=== PATIENT | male | born 1950 | race Caucasian/White ===

== ENCOUNTER 2017-12-12 17:48 | Emergency (ER) | payer MEDICARE ==
[2017-12-12 18:17] VITALS: BP 149/82; PULSE 78; O2SAT 97
--- NOTE | 2017-12-12 18:44 | ERPHSYRPT ---
- History of Present Illness Time Seen by Provider: 12/12/17 18:44 Source: patient Exam Limitations: no limitations Patient Subjective Stated Complaint: right hand injury, tripped over child's toy and struck hand on door casing Triage Nursing Assessment: pt to er c/o right hand pain post fall, triped over toddler toy and struck door casing, pt states he has "low calcium" and has fractures easily, bruise noted to top of left hand, no swelling, wiggles fingers but 4th and 5th finger has pain with movement Physician History: The patient is a 66-year-old left-handed male who tripped and fell against a door frame, striking his left hand on the frame, causing pain, swelling, and bruising to the knuckles. He is able to move all fingers as well as his hand. He has no numbness or tingling. His past medical history is significant for hypertension. Occurred: just prior to arrival Reason for Fall: tripped Injuries/Pain Location: upper extremity Loss of Consciousness: no loss of consciousness Quality: sharpness Severity of Pain-Max: moderate Severity of Pain-Current: moderate Modifying Factors: Improves With: nothing Associated Symptoms (Fall): denies symptoms Allergies/Adverse Reactions: penicillin G Allergy (Mild, Verified 10/25/16 15:58) Hives Home Medications: Aspirin/Calcium Carbonate/Mag [Aspirin Buffered 325 mg Tab] 325 mg PO DAILY [History] Hydrochlorothiazide 25 mg [hydroDIURIL 25 MG] 25 mg PO DAILY 01/13/15 [ History] Trazodone HCl 100 mg PO HS 01/13/15 [History] Hx Tetanus, Diphtheria Vaccination/Date Given: No Hx Influenza Vaccination/Date Given: Yes Hx Pneumococcal Vaccination/Date Given: Yes - Review of Systems Constitutional: No Fever, No Chills Eyes: No Symptoms Ears, Nose, & Throat: No Symptoms Respiratory: No Cough, No Dyspnea Cardiac: No Chest Pain, No Edema, No Syncope Abdominal/Gastrointestinal: No Abdominal Pain, No Nausea, No Vomiting, No Diarrhea Genitourinary Symptoms: No Dysuria Musculoskeletal: Fall, Injury Skin: No Rash Neurological: No Dizziness, No Focal Weakness, No Sensory Changes Psychological: No Symptoms Endocrine: No Symptoms Hematologic/Lymphatic: No Symptoms Immunological/Allergic: No Symptoms All Other Systems: Reviewed and Negative - Past Medical History Pertinent Past Medical History: Yes Neurological History: Stroke ENT History: Cataracts Cardiac History: Angina, Myocardial Infarction ([place]) Respiratory History: No Pertinent History Endocrine Medical History: No Pertinent History Musculoskeletal History: No Pertinent History GI Medical History: No Pertinent History History: No Pertinent History Psycho-Social History: Depression Male Reproductive Disorders: No Pertinent History - Past Surgical History Past Surgical History: Yes Neuro Surgical History: No Pertinent History Cardiac: No Pertinent History Respiratory: No Pertinent History Gastrointestinal: Other Genitourinary: No Pertinent History Musculoskeletal: Orthopedic Surgery Male Surgical History: Other Other Surgical History: "fluid" removed from testicles, spinal surgey, hip replacement x2, appy - Social History Smoking Status: Never smoker Exposure to second hand smoke: No Drug Use: none Patient Lives Alone: No - Nursing Vital Signs Nursing Vital Signs: Initial Vital Signs Temperature 97.7 F 12/12/17 18:09 Pulse Rate 78 12/12/17 18:09 Respiratory Rate 20 12/12/17 18:09 Blood Pressure 149/82 12/12/17 18:09 O2 Sat by Pulse Oximetry 97 12/12/17 18:09 Pain Scale Pain Intensity 8 - [place] Coma Score Best Eye Response (Deshawn): (4) open spontaneously Best Verbal Response (Deshawn): (5) oriented Best Motor Response (Deshawn): (6) obeys commands Deshawn Total: 15 - Physical Exam General Appearance: no apparent distress, alert Head Injury: no evidence of injury Eye Exam: PERRL/EOMI ENT Exam: airway nml Neck Exam: normal inspection, No tenderness Respiratory/Chest Exam: normal breath sounds, No chest tenderness, No respiratory distress Cardiovascular Exam: normal heart sounds, regular rate/rhythm Gastrointestinal Exam: soft, No tenderness, No distention, No guarding, No ecchymosis Rectal Exam: not done Back Exam: normal inspection, No vertebral tenderness Extremity Exam: tenderness (tenderness to left 4th MCP joint) Neurologic Exam: alert, 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, cooperative, sensation nml, No motor deficits Skin Exam: normal color, warm, dry SpO2 Interpretation: normal SpO2: 97 Oxygen Delivery: Room Air - Radiology Exams Left Hand X-ray Interpretation: Interpreted by me, Negative Ordered Tests: Active Orders 24 hr Category Date Time Status HAND (MINIMUM 3 VIEWS) Stat Exams 12/12/17 18:45 Ordered - Progress Counseled pt/family regarding: lab results - Departure Time of Disposition: 19:11 Departure Disposition: Home Clinical Impression: Contusion of left hand Condition: Stable Critical Care Time: No Referrals: WILLI DUMAS MD [Primary Care Provider] -
--- NOTE | 2017-12-13 08:48 | XRAY ---
Indication: Third metacarpal pain following fall. Comparison: July 22, 2013. 3 views of the right hand demonstrate stable osteopenia and minimal/mild degenerative changes of all IP joints again greatest second DIP. Stable distal radial/ulnar deformities presumed old injury and carpal degenerative changes with tiny lateral heterotopic ossification. No new/acute findings.
== END 2017-12-12 19:21 ==
LOC: ED 17:48
DX: S60.222A Contusion of left hand, initial encounter (principal); W22.8XXA Striking against or struck by other objects, initial encounter
CPT/HCPCS: 73130; 99282

== ENCOUNTER 2020-02-01 18:35 | Emergency (ER) | payer MEDICARE ==
--- NOTE | 2020-02-01 18:50 | ERPHSYRPT ---
- History of Present Illness Time Seen by Provider: 02/01/20 18:49 Source: patient Exam Limitations: no limitations Physician History: This is a 69-year-old white male who presents with 1 day history of right earache that has been persistent. He has radiation of this pain down into his throat on the right side. It hurts to swallow. He has not had any fever no cough he has no chest pain. Patient is not diabetic. He has no nausea vomiting or diarrhea. Timing/Duration: yesterday Quality: aching, pressure Severity of Pain-Max: mild Severity of Pain-Current: mild Associated Symptoms: other (Sore throat on the right side), No fever/chills, No nausea/vomiting Previous symptoms: no prior history Allergies/Adverse Reactions: penicillin G Allergy (Mild, Verified 10/25/16 15:58) Hives Home Medications: Aspirin 81 gm Chew [Baby Aspirin 81 mg Chew] 81 mg PO DAILY 02/01/20 [ History] Citalopram Hydrobromide [Celexa] 40 mg PO DAILY 02/01/20 [History] Docusate Sodium [Dok] 100 mg PO DAILY 02/01/20 [History] Finasteride 5 mg [Proscar 5 MG] 5 mg PO DAILY 02/01/20 [History] Hydrochlorothiazide 25 mg [hydroDIURIL 25 MG] 25 mg PO DAILY 02/01/20 [ History] Linaclotide [Linzess] 145 mcg PO DAILY 02/01/20 [History] Losartan Potassium 25 mg PO DAILY 02/01/20 [History] Omeprazole 40 mg PO DAILY 02/01/20 [History] Pramipexole Di-HCl 0.5 mg [Mirapex 0.5 MG Tablet] 0.5 mg PO BID 02/01/20 [ History] Pravastatin Sodium 40 mg PO DAILY 02/01/20 [History] Tamsulosin HCl 0.4 mg [Flomax 0.4 MG] 0.8 mg PO DAILY 02/01/20 [History] Venlafaxine HCl [Venlafaxine HCl ER] 150 mg PO DAILY 02/01/20 [History] Hx Tetanus, Diphtheria Vaccination/Date Given: No Hx Influenza Vaccination/Date Given: Yes Hx Pneumococcal Vaccination/Date Given: Yes Travel Risk - International Travel Have you traveled outside of the country in past 3 weeks: No Have you or anyone close to you been diagnosed with or: No Do your reside in a community with a known COVID-19 case?: Yes If Yes where:: [facility] - Coronavirus Screening Has patient experienced Coronavirus symptoms: No - Review of Systems Constitutional: No Symptoms Eyes: No Symptoms Ears, Nose, & Throat: Ear Pain (Right), Throat Pain Respiratory: No Symptoms Cardiac: No Symptoms Abdominal/Gastrointestinal: No Symptoms Genitourinary Symptoms: No Symptoms Musculoskeletal: No Symptoms Skin: No Symptoms Neurological: No Symptoms Psychological: No Symptoms Endocrine: No Symptoms Hematologic/Lymphatic: No Symptoms Immunological/Allergic: No Symptoms All Other Systems: Reviewed and Negative - Past Medical History Pertinent Past Medical History: Yes Neurological History: No Pertinent History, TIA ENT History: Cataracts Cardiac History: High Cholesterol, Hypertension, Myocardial Infarction ([place]) Respiratory History: No Pertinent History Endocrine Medical History: Other Musculoskeletal History: Arthritis, Fractures GI Medical History: No Pertinent History History: No Pertinent History Psycho-Social History: Depression Male Reproductive Disorders: No Pertinent History Other Medical History: history of DM-II - Past Surgical History Past Surgical History: Yes Neuro Surgical History: No Pertinent History Cardiac: No Pertinent History Respiratory: No Pertinent History Gastrointestinal: Other Genitourinary: No Pertinent History Musculoskeletal: Orthopedic Surgery Male Surgical History: Other Other Surgical History: "fluid" removed from testicles, spinal surgey, hip replacement x2, appy - Social History Smoking Status: Never smoker Exposure to second hand smoke: No Drug Use: none Patient Lives Alone: No - Nursing Vital Signs Nursing Vital Signs: Initial Vital Signs Temperature 97.8 F 02/01/20 18:44 Pulse Rate 107 H 02/01/20 18:44 Blood Pressure 172/85 02/01/20 18:44 O2 Sat by Pulse Oximetry 98 02/01/20 18:44 Pain Scale Pain Intensity 8 - Physical Exam General Appearance: no apparent distress, alert, anxiety Eye Exam: PERRL/EOMI Ears, Nose, Throat Exam: moist mucous membranes, TM abnormal (R) (Slightly reddened and canal on right side is also slightly red) Neck Exam: normal inspection, non-tender Respiratory Exam: normal breath sounds, lungs clear, airway intact, No chest tenderness, No respiratory distress Cardiovascular Exam: regular rate/rhythm, normal heart sounds, normal peripheral pulses Gastrointestinal/Abdominal Exam: soft, No tenderness Back Exam: normal inspection, normal range of motion, No CVA tenderness, No vertebral tenderness Extremity Exam: normal inspection, normal range of motion, pelvis stable Mental Status Exam: alert, 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, cooperative production assembler Exam: normal hearing, normal speech, PERRL Coordination/Gait Exam: normal gait, normal cerebellar function Motor/Sensory Exam: no motor deficit, no sensory deficit Skin Exam: normal color, warm, dry Lymphatic Exam: No adenopathy SpO2 Interpretation: normal O2 Delivery: Room Air - Course Nursing assessment & vital signs reviewed: Yes - Progress Progress: unchanged Air Movement: good Blood Culture(s) Obtained: No Antibiotics given: Yes Counseled pt/family regarding: diagnosis, need for follow-up - Departure Departure Disposition: Home Clinical Impression: Right otitis media Condition: Stable Critical Care Time: No Referrals: WILLI DUMAS MD [Primary Care Provider] - Additional Instructions: Drink plenty of fluids. Use Tylenol and ibuprofen for pain and fever. Follow- up with primary doctor for persistent symptoms. Prescriptions: Azithromycin 250 mg [Zithromax 250 MG TABLET] 250 mg PO ZPACK #6 tablet Prednisone 10 mg [Deltasone 10 mg] 10 mg PO TID #12 tablet
[2020-02-01 18:54] VITALS: BP 172/85; PULSE 107; O2SAT 98
[2020-02-01] MEDS ORDERED: Cipro 500 MG PO ONE (18:56)
[2020-02-01] MEDS ORDERED: Cipro 500 MG ONE (19:01)
[2020-02-01] MEDS ORDERED: DELTASONE 20 MG ONE (19:01)
[2020-02-02] MEDS ORDERED: DELTASONE 20 MG PO SCH (10:00)
== END 2020-02-01 19:31 | disposition home or self-care (01) ==
LOC: ED 18:35
DX: H66.91 Otitis media, unspecified, right ear (principal)
CPT/HCPCS: 99283; A9270-GY

== ENCOUNTER 2020-04-12 15:29 | Emergency (ER) | payer MEDICARE ==
[2020-04-12 16:51] LABS: Absolute Neutrophil Ct (ANC) 6.45 (1.4-6.9); BASOPHIL % 0.6 % (0.0-0.4); Basophil (Absolute #) 0.05 (0-0.4); Eosinophil % 0.9 % (0.00-5.0); Eosinophil (Absolute #) 0.08 (0-0.5); Hematocrit 37.7 % (42-50); Hemoglobin 12.6 gm/dl (12.5-18.0); Lymphocyte (Absolute #) 1.86 (1.0-4.6); Lymphocytes % 20.7 % (24.0-44.0); Mean Cell Volume 87.9 fl (78-100); Mean Corpuscular Hemoglobin 29.4 pg (26-32); Mean Corpuscular Hgb Concent. 33.4 g/dl (32-36); Mean Platelet Volume 9.4 fl (7.5-11.0); Monocyte (Absolute #) 0.55 (0.0-1.3); Monocytes % 6.1 % (0.0-12.0); Neutrophil % 71.7 % (36.0-66.0); Platelet Count 249 K/mm3 (150-450); Red Blood Count 4.29 M/mm3 (4.1-5.6); Red Cell Distribution Width 13.2 % (11.5-14.0)
--- NOTE | 2020-04-12 16:59 | XRAY ---
Indication: Hypertension. Comparison: January 24, 2016. Portable chest remains clear. Heart is not enlarged. Bony thorax intact again with osteopenia, mild degenerative changes, old right 6 rib fracture, and T11/T12 kyphoplasty. No new/acute findings.
[2020-04-12 17:08] LABS: ALBUMIN 3.9 g/dL (3.5-5.0); ALKALINE PHOSPHATASE 106 U/L (38-126); ANION GAP 10.8 MEQ/L (5-15); BLOOD UREA NITROGEN 14 mg/dL (9-20); CHLORIDE 102 mmol/L (98-107); Calcium 9.1 mg/dL (8.4-10.2); Carbon Dioxide 25 mmol/L (22-30); Creatinine 1 0.62 mg/dL (0.66-1.25); Glucose 126 mg/dL (74-106); MAGNESIUM 2.2 mg/dL (1.6-2.3); Potassium 3.5 mmol/L (3.5-5.1); SGOT/AST 33 U/L (17-59); SGPT/ALT 33 U/L (0-50); SODIUM 135 mmol/L (137-145)
--- NOTE | 2020-04-12 18:20 | ERPHSYRPT ---
- History of Present Illness Time Seen by Provider: 04/12/20 16:45 Patient Subjective Stated Complaint: pt to ER with complaints of HTN. pt currently takes medication to control HTN but doesnt think it works. stated it has been higher the past 3 weeks. Triage Nursing Assessment: pt A&Ox4. pt ambulatory. pt appears to be in no distress. skin pwd. Physician History: 69-year-old white male with longstanding hypertension who was recently had some changes in his medications and has noted at home by his blood pressure machine that his blood pressure is been running 212/119 intermittently over the past month. Rival here his blood pressure was 144/78 and he was pain-free and comfortable. Timing/Duration: week(s) (4) Activities at Onset: none Severity of Pain-Max: none Severity of Pain-Current: none Modifying Factors: Improves With: nothing Nitro Today/Relief: no nitro taken today Aspirin Treatment Today: no aspirin today Associated Symptoms: denies symptoms Prior Chest Pain/Cardiac Workup: no prior chest pain Allergies/Adverse Reactions: penicillin G Allergy (Mild, Verified 04/12/20 16:18) Hives meperidine [From Demerol] Adverse Reaction (Mild, Verified 04/12/20 16:19) Nausea and Vomiting Home Medications: Aspirin 81 gm Chew [Baby Aspirin 81 mg Chew] 81 mg PO DAILY 02/01/20 [ History] Citalopram Hydrobromide [Celexa] 40 mg PO DAILY 02/01/20 [History] Docusate Sodium [Dok] 100 mg PO DAILY 02/01/20 [History] Finasteride 5 mg [Proscar 5 MG] 5 mg PO DAILY 02/01/20 [History] Hydrochlorothiazide 25 mg [hydroDIURIL 25 MG] 25 mg PO DAILY 02/01/20 [ History] Linaclotide [Linzess] 145 mcg PO DAILY 02/01/20 [History] Losartan Potassium 25 mg PO DAILY 02/01/20 [History] Omeprazole 40 mg PO DAILY 02/01/20 [History] Pramipexole Di-HCl 0.5 mg [Mirapex 0.5 MG Tablet] 0.5 mg PO BID 02/01/20 [ History] Pravastatin Sodium 40 mg PO DAILY 02/01/20 [History] Tamsulosin HCl 0.4 mg [Flomax 0.4 MG] 0.8 mg PO DAILY 02/01/20 [History] Venlafaxine HCl [Venlafaxine HCl ER] 150 mg PO DAILY 02/01/20 [History] Hx Tetanus, Diphtheria Vaccination/Date Given: Yes Hx Influenza Vaccination/Date Given: Yes Hx Pneumococcal Vaccination/Date Given: No Immunizations Up to Date: Yes Travel Risk - International Travel Have you traveled outside of the country in past 3 weeks: No - Coronavirus Screening Close contact with a COVID-19 positive Pt in past 14-21 Days: No - Review of Systems Constitutional: No Fever, No Chills Eyes: No Symptoms Ears, Nose, & Throat: No Symptoms Respiratory: No Cough, No Dyspnea Cardiac: No Chest Pain, No Edema, No Syncope Abdominal/Gastrointestinal: No Abdominal Pain, No Nausea, No Vomiting, No Diarrhea Genitourinary Symptoms: No Dysuria Musculoskeletal: No Back Pain, No Neck Pain Skin: No Rash Neurological: No Dizziness, No Focal Weakness, No Sensory Changes Psychological: No Symptoms Endocrine: No Symptoms All Other Systems: Reviewed and Negative - Past Medical History Pertinent Past Medical History: Yes Neurological History: No Pertinent History, TIA ENT History: Cataracts Cardiac History: High Cholesterol, Hypertension, Myocardial Infarction ([place]) Respiratory History: No Pertinent History Endocrine Medical History: Other Musculoskeletal History: Arthritis, Fractures GI Medical History: No Pertinent History History: No Pertinent History Psycho-Social History: Depression Male Reproductive Disorders: No Pertinent History Other Medical History: history of DM-II - Past Surgical History Past Surgical History: Yes Neuro Surgical History: No Pertinent History Cardiac: No Pertinent History Respiratory: No Pertinent History Gastrointestinal: Other Genitourinary: No Pertinent History Musculoskeletal: Orthopedic Surgery Male Surgical History: Other Other Surgical History: "fluid" removed from testicles, spinal surgey, hip replacement x2, appy - Social History Smoking Status: Never smoker Exposure to second hand smoke: No Drug Use: none Patient Lives Alone: No - Nursing Vital Signs Nursing Vital Signs: Initial Vital Signs Temperature 98.0 F 04/12/20 16:13 Pulse Rate 94 H 04/12/20 16:13 Respiratory Rate 18 04/12/20 16:13 Blood Pressure 144/78 04/12/20 16:13 O2 Sat by Pulse Oximetry 99 04/12/20 16:13 - Physical Exam General Appearance: no apparent distress, alert Eye Exam: PERRL/EOMI, eyes nml inspection Ears, Nose, Throat Exam: normal ENT inspection, moist mucous membranes Neck Exam: normal inspection, non-tender, supple Respiratory Exam: normal breath sounds, lungs clear, No respiratory distress Cardiovascular Exam: regular rate/rhythm, normal heart sounds, No edema Gastrointestinal/Abdomen Exam: soft, No tenderness, No mass Back Exam: normal inspection, No CVA tenderness, No vertebral tenderness Extremity Exam: normal inspection, normal range of motion Neurologic Exam: alert, 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, cooperative, normal mood/affect, nml cerebellar function, sensation nml, No motor deficits Skin Exam: normal color, warm, dry Lymphatic Exam: No adenopathy SpO2: 95 - Course Nursing assessment & vital signs reviewed: Yes EKG Interpreted by Me: RATE ([id number]), NORMAL AXIS, NORMAL INTERVALS, NORMAL QRS - Radiology Exams Chest X-ray Interpretation: Negative Ordered Tests: Active Orders 24 hr Category Date Time Status EKG-ER Only STAT Care 04/12/20 16:28 Active CHEST 1 VIEW (PORTABLE) Stat Exams 04/12/20 16:29 Completed CBC W DIFF Stat Lab 04/12/20 16:50 Completed CMP Stat Lab 04/12/20 16:50 Completed MAGNESIUM Stat Lab 04/12/20 16:50 Completed TROPONIN Q3H Lab 04/12/20 16:50 Completed TROPONIN Q3H Lab 04/12/20 19:30 Ordered TROPONIN Q3H Lab 04/12/20 22:30 Ordered TROPONIN Q3H Lab 04/13/20 01:30 Ordered TROPONIN Q3H Lab 04/13/20 04:30 Ordered UA W/RFX UR CULTURE Stat Lab 04/12/20 17:17 Ordered Lab/Rad Data: Laboratory Result Diagrams 04/12/20 16:50 04/12/20 16:50 Laboratory Results 04/12/20 04/12/20 04/12/20 Range/Units 16:50 16:50 16:50 WBC 9.0 (4.0-10.5) K/mm3 RBC 4.29 (4.1-5.6) M/mm3 Hgb 12.6 (12.5-18.0) gm/dl Hct 37.7 L (42-50) % MCV 87.9 (78-100) fl MCH 29.4 (26-32) pg MCHC 33.4 (32-36) g/dl RDW 13.2 (11.5-14.0) % Plt Count 249 (150-450) K/mm3 MPV 9.4 (7.5-11.0) fl Gran % 71.7 H (36.0-66.0) % Eos # (Auto) 0.08 (0-0.5) Absolute Lymphs (auto) 1.86 (1.0-4.6) Absolute Monos (auto) 0.55 (0.0-1.3) Lymphocytes % 20.7 L (24.0-44.0) % Monocytes % 6.1 (0.0-12.0) % Eosinophils % 0.9 (0.00-5.0) % Basophils % 0.6 (0.0-0.4) % Absolute Granulocytes 6.45 (1.4-6.9) Basophils # 0.05 (0-0.4) Sodium 135 L (137-145) mmol/L Potassium 3.5 (3.5-5.1) mmol/L Chloride 102 (98-107) mmol/L Carbon Dioxide 25 (22-30) mmol/L Anion Gap 10.8 (5-15) MEQ/L BUN 14 (9-20) mg/dL Creatinine 0.62 L (0.66-1.25) mg/dL Estimated GFR > 60.0 ML/MIN Glucose 126 H (74-106) mg/dL Calcium 9.1 (8.4-10.2) mg/dL Magnesium 2.2 (1.6-2.3) mg/dL Total Bilirubin 0.60 (0.2-1.3) mg/dL AST 33 (17-59) U/L ALT 33 (0-50) U/L Alkaline Phosphatase 106 (38-126) U/L Troponin I < 0.012 (0.000-0.034) ng/mL Serum Total Protein 7.0 (6.3-8.2) g/dL Albumin 3.9 (3.5-5.0) g/dL - Progress Progress: improved Air Movement: good Blood Culture(s) Obtained: No Antibiotics given: No - Departure Departure Disposition: Home Clinical Impression: Hypertension Condition: Stable Critical Care Time: No Referrals: WILLI DUMAS MD [Primary Care Provider] - Instructions: Hypertension, High Blood Pressure (DC)
[2020-04-12 18:44] VITALS: BP 138/91; PULSE 92; O2SAT 98
[2020-04-12 19:29] LABS: Appearance CLEAR (CLEAR); Bilirubin NEGATIVE (NEGATIVE); Blood NEGATIVE Ery/ul (0-5); Glucose NEGATIVE (NEGATIVE); Ketones NEGATIVE (NEGATIVE); Leukocyte Esterase NEGATIVE (NEGATIVE); Nitrite NEGATIVE (NEGATIVE); Protein,Urine Dip NEGATIVE (Negative); Specific Gravity 1.009 (1.005-1.025); Urobilinogen NEGATIVE mg/dL (0-1)
== END 2020-04-12 18:40 | disposition home or self-care (01) ==
LOC: ED 15:29
DX: I10 Essential (primary) hypertension (principal); E78.00 Pure hypercholesterolemia, unspecified; I25.2 Old myocardial infarction; E11.9 Type 2 diabetes mellitus without complications; F32.9 Major depressive disorder, single episode, unspecified
CPT/HCPCS: 36415; 71045; 80053; 81001; 83735; 84484; 85025; 93005; 99284

== ENCOUNTER 2020-08-25 09:08 | Day surgery (SDC) | payer MEDICARE ==
[2013-07-22 19:24] VITALS: BP 150/90
[~2020-08-25 09:08] MED LIST: DIPRIVAN 200 MG/20 ML IV ONE; Ketamine HCl 50 MG/ML ONE
[2020-08-25] MEDS ORDERED: Depo-Medrol 40 MG/ML IM ONE (09:09)
[2020-08-25] MEDS ORDERED: BUPIVACAINE 0.5% VIAL IJ ONE (09:09)
--- NOTE | 2020-08-25 11:37 | XRAY ---
Indication: Left SI joint injection. Intraoperative fluoroscopy was provided for 19 seconds. Single digital spot image obtained prone demonstrates needle tip projecting over the inferior left SI joint. Correlate with intraoperative findings/report. Incidental incompletely visualized left hip arthroplasty.
--- NOTE | 2020-08-25 11:48 | XRAY ---
19 seconds fluoroscopy time in surgery for left SI joint injection.
[2020-08-25] MEDS ORDERED: Lactated Ringers 1,000 ML IV ONE (16:51)
== END 2020-08-25 10:45 | disposition home or self-care (01) ==
LOC: SDC 09:08 → SDC-PAIN 09:08
PROVIDERS: ATTEND Psychiatry & Neurology Pain Medicine
DX: M46.1 Sacroiliitis, not elsewhere classified (principal); I10 Essential (primary) hypertension; N40.0 Benign prostatic hyperplasia without lower urinary tract symptoms; Z86.73 Personal history of transient ischemic attack (TIA), and cerebral infarction without residual deficits; Z79.899 Other long term (current) drug therapy
CPT/HCPCS: 72020; 77002; G0260; 27096; 99100; J1030; J2704

== ENCOUNTER 2020-09-15 11:54 | Day surgery (SDC) | payer MEDICARE ==
[2013-07-22 19:24] VITALS: BP 150/90
[2020-09-15] MEDS ORDERED: LIDOCAINE HCL 2% 100 MG/5 ML IJ ONE (11:55)
[2020-09-15] MEDS ORDERED: Depo-Medrol 40 MG/ML IM ONE (11:55)
[2020-09-15] MEDS ORDERED: Ketamine HCl 50 MG/ML ONE (14:00)
[2020-09-15] MEDS ORDERED: DIPRIVAN 200 MG/20 ML IV ONE (14:00)
--- NOTE | 2020-09-15 15:04 | XRAY ---
Indication: Bilateral L4-S1 MBB. Intraoperative fluoroscopy was provided 10 seconds. Single digital spot image submitted for interpretation demonstrates posterior needle tips projecting over the expected left and right L4-S1 nerve roots. Correlate with intraoperative findings/report. Incidental L3-L4 kyphoplasty.
--- NOTE | 2020-09-15 15:06 | XRAY ---
10 seconds of fluoroscopy was used in surgery bilateral L4-L5 and L5-S1 MBB.
[2020-09-15] MEDS ORDERED: Lactated Ringers 1,000 ML IV ONE (15:44)
== END 2020-09-15 14:25 | disposition home or self-care (01) ==
LOC: SDC-PAIN 11:54
PROVIDERS: ATTEND Psychiatry & Neurology Pain Medicine
DX: M47.816 Spondylosis without myelopathy or radiculopathy, lumbar region (principal); I10 Essential (primary) hypertension; F41.8 Other specified anxiety disorders; Z79.899 Other long term (current) drug therapy
CPT/HCPCS: 64493; 64494; 72020; 77002; J1030; J2704

== ENCOUNTER 2020-11-24 10:03 | Day surgery (SDC) | payer MEDICARE ==
[2013-07-22 19:24] VITALS: BP 150/90
[2020-11-24] MEDS ORDERED: BUPIVACAINE 0.5% VIAL IJ ONE (10:04)
[2020-11-24] MEDS ORDERED: Depo-Medrol 40 MG/ML IM ONE (10:04)
[2020-11-24] MEDS ORDERED: Ketamine HCl 50 MG/ML ONE (12:01)
[2020-11-24] MEDS ORDERED: DIPRIVAN 200 MG/20 ML IV ONE (12:01)
--- NOTE | 2020-11-24 14:14 | XRAY ---
Indication: Bilateral L4-S1 MBB. Intraoperative fluoroscopy was provided for 10 seconds. Single digital spot image submitted for interpretation demonstrates posterior needle tips projecting over the expected left and right L4-S1 nerve roots. Correlate with intraoperative findings/report. Incidental L3-L4 kyphoplasty.
--- NOTE | 2020-11-24 14:16 | XRAY ---
10 seconds of fluoroscopy was used in surgery for a bilateral L4-L5 and L5-S1 MBB.
[2020-11-24] MEDS ORDERED: Lactated Ringers 1,000 ML IV ONE (15:55)
== END 2020-11-24 12:30 | disposition home or self-care (01) ==
LOC: SDC-PAIN 10:03
PROVIDERS: ATTEND Psychiatry & Neurology Pain Medicine
DX: M47.816 Spondylosis without myelopathy or radiculopathy, lumbar region (principal); I10 Essential (primary) hypertension; Z86.73 Personal history of transient ischemic attack (TIA), and cerebral infarction without residual deficits; N40.0 Benign prostatic hyperplasia without lower urinary tract symptoms; Z79.899 Other long term (current) drug therapy
CPT/HCPCS: 64493; 64494; 72020; 77002; J1030; J2704

== ENCOUNTER 2020-12-20 10:52 | Day surgery (SDC) | payer MEDICARE ==
--- NOTE | 2020-12-20 08:33 | HP ---
DATE OF SURGERY: 12/20/2020 HISTORY OF PRESENT ILLNESS: The patient is a 70 year-old with right upper quadrant pain sharp, problems after eating. No vomiting. No diarrhea. PAST MEDICAL HISTORY: Hypertension, history of myocardial infarction, TIA, history of fractures in the past. Diabetes mellitus type II. PAST SURGICAL HISTORY: Left hip replacement. Bilateral wrist. Chronic ulcer surgery. He may have had a vagotomy. Fibromyalgia with disc clicking what he is describing. Appendectomy. MEDICATIONS: Oxycodone. Carvedilol. Pramipexole. Citalopram. Hydrochlorothiazide. Finasteride. Losartan. Amitriptyline. Tamsulosin. Aspirin. ALLERGIES: DEMEROL. PENICILLIN G. FAMILY HISTORY: Heart disease, cancer, diabetes. SOCIAL HISTORY: Chews tobacco. No alcohol abuse. REVIEW OF SYSTEMS: Fourteen systems reviewed. No chest pain or palpitations. Pertinent for chronic illnesses as mentioned above. PHYSICAL EXAMINATION: GENERAL: No acute distress. HEENT: Sclerae nonicteric. NECK: No JVD. CHEST: Equal excursion, nonlabored breathing. CVS: Regular rate and rhythm. ABDOMEN: Soft, some tenderness right upper quadrant. No peritoneal signs. EXTREMITIES: No significant edema. NEURO: Alert, oriented, moving extremities symmetrically. PSYCH: Appropriate mood and affect. LAB DATA AND TESTS: Ultrasound showed cholelithiasis. IMPRESSION: Acute exacerbation of chronic cholecystitis, symptomatic cholelithiasis. I feel the patient will benefit from cholecystectomy. Risks and benefits explained in detail including but not limited to bleeding or infection, risk of trocar injury or hernia, risk of bowel, bladder or blood vessel injury, risk of bile leak, bile duct injury, retained stone or sludge possibly requiring further procedure either open or ERCP, general risk of anesthesia, deep venous thrombosis, pulmonary embolism, pneumonia, perioperative risk of aches, pains, bloating, constipation and/or loose stools possibly even chronic in nature, possibility of needing an open procedure given his prior abdominal surgery. General risk of anesthesia, deep vein thrombosis, pulmonary embolism, pneumonia, aches and pains but not limited. He understands and agrees to the planned procedure, will proceed with laparoscopic cholecystectomy with possible open as an outpatient.
[~2020-12-20 10:52] MED LIST changes: -DIPRIVAN 200 MG/20 ML IV ONE; -Ketamine HCl 50 MG/ML ONE; +Lactated Ringers 1,000 ML IV ONE; +Sensorcaine 0.25% 10 ML ONE
[2020-12-20] MEDS ORDERED: Lactated Ringers 1,000 ML IV SCH (12:00)
[2020-12-20] MEDS ORDERED: CLINDAMYCIN-D5W 900 MG/50 ML*** 900 MG/50 ML BAG IV SCH (12:00)
[2020-12-20] MEDS ORDERED: Levofloxacin 500MG/100ML D5W 500 MG/100 ML BAG IV SCH (12:00)
[2020-12-20 12:51] LABS: BLOOD UREA NITROGEN 14 mg/dL (9-20); CHLORIDE 102 mmol/L (98-107); Calcium 9.3 mg/dL (8.4-10.2); Carbon Dioxide 27 mmol/L (22-30); Creatinine 1 0.79 mg/dL (0.66-1.25); EST GLOMERULAR FILTRATION RATE > 60.0 ML/MIN; Glucose 136 mg/dL (74-106); Potassium 3.9 mmol/L (3.5-5.1); SODIUM 135 mmol/L (137-145)
[2020-12-20] MEDS ORDERED: Zemuron 100 MG/10 ML ONE (13:29)
[2020-12-20] MEDS ORDERED: Versed 2 MG/2 ML Injection ONE (13:29)
[2020-12-20] MEDS ORDERED: DIPRIVAN 200 MG/20 ML IV ONE (13:29)
[2020-12-20] MEDS ORDERED: SUBLIMAZE 250 MCG/5 ML ONE (13:29)
[2020-12-20] MEDS ORDERED: BRIDION 200MG/2ML IV ONE (13:32)
--- NOTE | 2020-12-20 15:05 | OP ---
SURGERY DATE/TIME: 12/20/2020 8791 PREOPERATIVE DIAGNOSIS: Acute exacerbation of chronic cholecystitis, cholelithiasis. POSTOPERATIVE DIAGNOSIS: Acute exacerbation of chronic cholecystitis, cholelithiasis. PROCEDURE: Laparoscopic cholecystectomy. SURGEON: Dr. Garry Ruff. ANESTHESIA: General. ESTIMATED BLOOD LOSS: Minimal. INDICATIONS: As noted above. Risks and benefits explained in detail but not limited to and consent obtained. DESCRIPTION OF PROCEDURE AND FINDINGS: The patient was taken to the operating room. General anesthesia induced. Abdomen prepped and draped in the usual sterile fashion. After official time out and no disagreement with planned procedure, a transverse incision made just below the umbilical area via an upper midline laparotomy incision from surgery in the past. He stated he had some ulcer surgery in the past years ago. Fascia grasped and pulled upward. Veress needle inserted and tested with saline. Pneumoperitoneum accomplished insufflating opening pressure of 0-15. A 5 mm bladeless port and camera inserted without difficulty followed by two - 5 mm right upper quadrant ports and 11 mm epigastric port. Fortunately given his midline laparotomy, he did not have extensive abdominal wall adhesions up in the midline. He did have a little bit of CO2 insufflated in the preperitoneal space. There was no evidence of any injury secondary to trocar or Veress needle placement. The gallbladder grasped and had some omental adhesions on it. These were dissected posterior lateral to anterior fashion slowly and carefully until cystic duct and infundibular area and main cystic artery isolated until the critical view obtained both anteriorly and posteriorly. Once this was accomplished the cystic duct and cystic artery clipped x3 and divided in usual fashion. The gallbladder slowly and carefully dissected free from its dense attachment to liver bed staying directly on the gallbladder wall clipping additional side branches off the cystic artery as necessary directly on the gallbladder wall. Just prior to releasing from final attachments to the anterior edge of the liver, the liver bed re-inspected. Clips noted in placed cystic duct and cystic artery stumps. There were no signs of any active bleeding or bile leakage. It was felt there was no benefit in drain placement. The gallbladder released from final attachments to anterior edge of the liver, pulled up into the epigastric wound decompressed of some bile and able to be pulled free and passed off without extending the port wound. Fascial defect epigastric area closed with puncture closure device with #1 Vicryl. Copious amount of irrigation accomplished in the subhepatic space and lateral to the liver, irrigating clear. Clips noted in place in cystic duct and cystic artery stumps. No signs of any active bleeding or bile leakage. It was felt there was no benefit in drain placement. The wound is irrigated out. Skin incision closed with 4-0 Vicryl. 0.25% Marcaine local injected along the skin incision fascial defect. The patient tolerated the procedure well. There were no immediate complications. Findings discussed with the family over the phone as they were outside somewhere.
[2020-12-20] MEDS ORDERED: MORPHINE SULFATE 10 MG/ML ONE (15:07)
[2020-12-20] MEDS ORDERED: Zofran 4 MG/2 ML VIAL ONE (15:37)
[2020-12-20 16:08] VITALS: O2SAT 97
[2020-12-20 16:23] VITALS: BP 140/74; PULSE 70
== END 2020-12-20 16:30 | disposition home or self-care (01) ==
LOC: SDC 10:52
PROVIDERS: ATTEND Surgery
DX: K80.00 Calculus of gallbladder with acute cholecystitis without obstruction (principal); I10 Essential (primary) hypertension; E11.9 Type 2 diabetes mellitus without complications; Z86.73 Personal history of transient ischemic attack (TIA), and cerebral infarction without residual deficits; Z79.899 Other long term (current) drug therapy
CPT/HCPCS: 36415; 80048; 99100; J1956; J2250; J2270; J2405; J2704; J3010

== ENCOUNTER 2021-03-09 14:49 | Day surgery (SDC) | payer MEDICARE ==
[2013-07-22 19:24] VITALS: BP 150/90
[2021-03-09] MEDS ORDERED: Xylocaine 1% Vial 30 ML PF IJ ONE (14:50)
[2021-03-09] MEDS ORDERED: BUPIVACAINE 0.5% VIAL IJ ONE (14:50)
[2021-03-09] MEDS ORDERED: Depo-Medrol 40 MG/ML IM ONE (14:50)
--- NOTE | 2021-03-09 18:53 | XRAY ---
13 seconds fluoroscopy time in surgery for intra-articular injection of the right hip.
== END 2021-03-09 17:34 | disposition home or self-care (01) ==
LOC: SDC-PAIN 14:49
PROVIDERS: ATTEND Psychiatry & Neurology Pain Medicine
DX: M16.11 Unilateral primary osteoarthritis, right hip (principal); E11.9 Type 2 diabetes mellitus without complications; I10 Essential (primary) hypertension; K57.30 Diverticulosis of large intestine without perforation or abscess without bleeding; M85.80 Other specified disorders of bone density and structure, unspecified site; J43.9 Emphysema, unspecified; Z79.899 Other long term (current) drug therapy
CPT/HCPCS: 20610; 73501; 77002; 82947; J1030; J2001; Q9966

== ENCOUNTER 2021-04-13 10:10 | Day surgery (SDC) | payer MEDICARE ==
[2013-07-22 19:24] VITALS: BP 150/90
[2021-04-13] MEDS ORDERED: BUPIVACAINE 0.5% VIAL IJ ONE (10:11)
[2021-04-13] MEDS ORDERED: Depo-Medrol 40 MG/ML IM ONE (10:11)
[2021-04-13] MEDS ORDERED: Xylocaine 1% Vial 30 ML PF IJ ONE (10:11)
[2021-04-13] MEDS ORDERED: DIPRIVAN 200 MG/20 ML IV ONE (11:11)
--- NOTE | 2021-04-13 14:55 | XRAY ---
Indication: Right L4-S1 CHIQUI. Intraoperative fluoroscopy provided for 26 seconds. 3 digital spot image submitted for interpretation demonstrates posterior needle tips projecting over the expected right L4-S1 nerve roots. Correlate with intraoperative findings/report. Incidental incompletely visualized L3/L4 kyphoplasty.
--- NOTE | 2021-04-13 15:06 | XRAY ---
26 seconds of fluoroscopy was used in surgery for a right L4-L5, L5-S1 RFA.
[2021-04-13] MEDS ORDERED: Lactated Ringers 1,000 ML IV ONE (16:01)
== END 2021-04-13 11:41 | disposition home or self-care (01) ==
LOC: SDC-PAIN 10:10
PROVIDERS: ATTEND Psychiatry & Neurology Pain Medicine
DX: M47.816 Spondylosis without myelopathy or radiculopathy, lumbar region (principal); F41.9 Anxiety disorder, unspecified; F32.9 Major depressive disorder, single episode, unspecified; I51.9 Heart disease, unspecified; M19.90 Unspecified osteoarthritis, unspecified site; I10 Essential (primary) hypertension; N40.0 Benign prostatic hyperplasia without lower urinary tract symptoms; J43.9 Emphysema, unspecified; K57.90 Diverticulosis of intestine, part unspecified, without perforation or abscess without bleeding; Z79.899 Other long term (current) drug therapy
CPT/HCPCS: 64635; 64636; 72100; 77002; 82947; 99100; J1030; J2001; J2704

== ENCOUNTER 2021-04-27 08:01 | Day surgery (SDC) | payer MEDICARE ==
[2013-07-22 19:24] VITALS: BP 150/90
[2021-04-27] MEDS ORDERED: Depo-Medrol 40 MG/ML IM ONE (08:02)
[2021-04-27] MEDS ORDERED: Xylocaine 1% Vial 30 ML PF IJ ONE (08:02)
[2021-04-27] MEDS ORDERED: BUPIVACAINE 0.5% VIAL IJ ONE (08:02)
[2021-04-27] MEDS ORDERED: DIPRIVAN 200 MG/20 ML IV ONE (09:23)
--- NOTE | 2021-04-27 10:23 | XRAY ---
Indication: Left L4-S1 RFA. Intraoperative fluoroscopy provided for 37 seconds. 6 digital spot image submitted for interpretation demonstrates posterior needle tips projecting over the expected left L4-S1 nerve roots. Correlate with intraoperative findings/report. Incidental incompletely visualized L4 kyphoplasty.
--- NOTE | 2021-04-27 10:28 | XRAY ---
37 seconds fluoroscopy time in surgery for L4-S1 RFA.
[2021-04-27] MEDS ORDERED: Lactated Ringers 1,000 ML IV ONE (15:29)
== END 2021-04-27 09:55 | disposition home or self-care (01) ==
LOC: SDC-PAIN 08:01
PROVIDERS: ATTEND Psychiatry & Neurology Pain Medicine
DX: M47.816 Spondylosis without myelopathy or radiculopathy, lumbar region (principal); F41.9 Anxiety disorder, unspecified; F32.9 Major depressive disorder, single episode, unspecified; I10 Essential (primary) hypertension; I25.2 Old myocardial infarction; N40.0 Benign prostatic hyperplasia without lower urinary tract symptoms; E11.9 Type 2 diabetes mellitus without complications; K57.90 Diverticulosis of intestine, part unspecified, without perforation or abscess without bleeding; Z79.899 Other long term (current) drug therapy
CPT/HCPCS: 64635; 64636; 72100; 77002; 82947; 99100; J1030; J2001; J2704

== ENCOUNTER 2021-05-20 09:49 | Emergency (ER) | payer MEDICARE ==
--- NOTE | 2021-05-20 10:26 | ERPHSYRPT ---
- History of Present Illness Time Seen by Provider: 05/20/21 10:10 Source: patient Exam Limitations: no limitations Patient Subjective Stated Complaint: States he hit his left hand on a doorframe Sunday and it is still sore. He thought he should come and have it checked out. Triage Nursing Assessment: Small abrasion noted to left posterior hand between 2nd and 3rd knuckle. Posterior left hand is bruised and swollen in the same area. Patient is able to move/wiggle fingers to hand. Physician History: This is a left handed 70-year-old white male who injured his left hand in a door frame 3 days ago. The swelling has not resolved. There is bruising present. There is also some redness and an area of an abrasion that is present on his second knuckle. He denies fevers or chills. There is been no drainage from the site. Because of the persistent swelling and the fact there is redness in the area patient decided to come to emergency department for x-ray and evaluation and possible antibiotics. His last tetanus shot was 4 years ago. Occurred: days ago (3) Method of Injury: direct blow Quality: aching Severity of Pain-Max: mild Severity of Pain-Current: mild Extremities Pain Location: 2nd finger: left Modifying Factors: Improves With: movement Associated Symptoms: none Allergies/Adverse Reactions: penicillin G Allergy (Mild, Verified 05/20/21 10:03) Hives meperidine [From Demerol] Adverse Reaction (Mild, Verified 05/20/21 10:03) Nausea and Vomiting Home Medications: Finasteride 5 mg [Proscar 5 MG] 5 mg PO DAILY 02/01/20 [History] Hydrochlorothiazide 25 mg [hydroDIURIL 25 MG] 25 mg PO DAILY 02/01/20 [History] Losartan Potassium 50 mg PO DAILY 02/01/20 [History] Amitriptyline HCl 10 mg [Elavil 10 mg] 10 mg PO HS 12/08/20 [History] Aspirin EC 325 mg [Ecotrin 325 MG] 325 mg PO DAILY 12/08/20 [History] Carvedilol 12.5 mg [Coreg 12.5 mg] 12.5 mg PO BID 12/08/20 [History] Mv,Phillip,Min/Iron/Folic Acid/Lut [Complete Multi Tablet] 1 each PO DAILY 12/08/20 [History] Hx Tetanus, Diphtheria Vaccination/Date Given: Yes Hx Influenza Vaccination/Date Given: Yes Hx Pneumococcal Vaccination/Date Given: No Travel Risk - International Travel Have you traveled outside of the country in past 3 weeks: No - Coronavirus Screening Are you exhibiting any of the following symptoms?: No Close contact with a COVID-19 positive Pt in past 14-21 Days: No - Vaccine Status Have you recieved a Covid-19 vaccination: Yes 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 - Vaccination Dates Date of 2cond Vaccination (if applicable): unknown - Review of Systems Constitutional: No Symptoms Eyes: No Symptoms Ears, Nose, & Throat: No Symptoms Respiratory: No Symptoms Cardiac: No Symptoms Abdominal/Gastrointestinal: No Symptoms Genitourinary Symptoms: No Symptoms Musculoskeletal: Injury (Left hand) Skin: Cellulitis (Mild localized left hand) Neurological: No Symptoms Psychological: No Symptoms Endocrine: No Symptoms Hematologic/Lymphatic: No Symptoms Immunological/Allergic: No Symptoms All Other Systems: Reviewed and Negative - Past Medical History Pertinent Past Medical History: Yes Neurological History: No Pertinent History, TIA ENT History: Cataracts Cardiac History: High Cholesterol, Hypertension, Myocardial Infarction ([place]) Respiratory History: No Pertinent History Endocrine Medical History: Other Musculoskeletal History: Arthritis, Fractures GI Medical History: No Pertinent History, GERD History: No Pertinent History Psycho-Social History: Depression Male Reproductive Disorders: No Pertinent History Other Medical History: history of DM-II - Past Surgical History Past Surgical History: Yes Neuro Surgical History: No Pertinent History Cardiac: Cardiac Catheterization Respiratory: No Pertinent History Gastrointestinal: Other Genitourinary: No Pertinent History Musculoskeletal: Orthopedic Surgery Male Surgical History: Other Other Surgical History: "fluid" removed from testicles, spinal surgey, hip replacement x2, appy, bilateral hand, total hip, stomach - Social History Smoking Status: Former smoker Exposure to second hand smoke: No Drug Use: none Patient Lives Alone: No () - Nursing Vital Signs Nursing Vital Signs: Initial Vital Signs Temperature 97.9 F 05/20/21 09:53 Pulse Rate 67 05/20/21 09:53 Respiratory Rate 18 05/20/21 09:53 Blood Pressure 124/77 05/20/21 09:53 O2 Sat by Pulse Oximetry 98 05/20/21 09:53 Pain Scale Pain Intensity 3 - Physical Exam General Appearance: no apparent distress, alert Eyes, Ears, Nose, Throat Exam: normal ENT inspection, moist mucous membranes Neck Exam: normal inspection, non-tender, supple, full range of motion Cardiovascular/Respiratory Exam: chest non-tender, no respiratory distress Abdominal Exam: non-tender Back Exam: normal inspection, normal range of motion, No CVA tenderness, No vertebral tenderness Shoulder Exam: normal inspection, non-tender, no evidence of injury, normal ROM Elbow/Forearm Exam: normal inspection, non-tender, no evidence of injury, normal ROM Wrist Exam: normal inspection, non-tender, no evidence of injury, normal ROM Hand Exam: abrasions, ecchymosis (Dorsal aspect left hand), infection (Localized redness at abrasion site left hand dorsal aspect second digit), soft tissue tenderness (Left hand dorsal aspect second digit), swelling (Hand dorsal aspect second digit), No deformity Neuro/Tendon Exam: normal sensation, normal motor functions, normal tendon functions, responds to pain, no evidence tendon injury Mental Status Exam: alert, 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, cooperative Skin Exam: warm, dry, abrasion, ecchymosis, other (No redness) SpO2 Interpretation: normal SpO2: 98 O2 Delivery: Room Air - Course Nursing assessment & vital signs reviewed: Yes Ordered Tests: Active Orders 24 hr Category Date Time Status HAND (MINIMUM 3 VIEWS) Stat Exams 05/20/21 10:26 Completed - Progress Progress: unchanged, pain not gone completely, re-examined Progress Note: 05/20/21 11:00 X-ray left hand shows no acute fracture or dislocation. Counseled pt/family regarding: diagnosis, need for follow-up, rad results - Departure Departure Disposition: Home Clinical Impression: Cellulitis of left hand, Contusion of left hand Condition: Stable Critical Care Time: No Referrals: DOCTOR,NO FAMILY [NON-STAFF PHY W/O PRIVILEGES] - Additional Instructions: Keep abrasion site clean daily with soap and water. Take your antibiotics as prescribed. Follow-up with your primary care physician or [facility] orthopedic clinic if symptoms persist. Prescriptions: Ciprofloxacin [Cipro 500 MG] 500 mg PO BID #14 tablet
--- NOTE | 2021-05-20 10:58 | XRAY ---
Indication: Pain following injury. Comparison: December 12, 2017. 3 view left hand demonstrates new distal radius fixation hardware. Stable osteopenia, degenerative changes all IP joints/base 1st metacarpal, and old distal ulnar fracture. No other bony, articular, or soft tissue abnormalities.
[2021-05-20 11:23] VITALS: BP 109/75; PULSE 63; O2SAT 97
== END 2021-05-20 11:45 | disposition home or self-care (01) ==
LOC: ED 09:49
DX: L03.114 Cellulitis of left upper limb (principal); S60.222A Contusion of left hand, initial encounter; W21.4XXA Striking against diving board, initial encounter; Y93.01 Activity, walking, marching and hiking; Y92.008 Other place in unspecified non-institutional (private) residence as the place of occurrence of the external cause; M79.89 Other specified soft tissue disorders; I10 Essential (primary) hypertension; I25.2 Old myocardial infarction; E11.9 Type 2 diabetes mellitus without complications; Z86.73 Personal history of transient ischemic attack (TIA), and cerebral infarction without residual deficits
CPT/HCPCS: 73130; 99283

== ENCOUNTER 2021-07-29 09:28 | Emergency (ER) | payer MEDICARE ==
[2021-07-29 09:41] VITALS: BP 130/92; O2SAT 96
--- NOTE | 2021-07-29 10:09 | XRAY ---
Indication: Pain following fall. Comparison: January 14, 2021. 2 view left hip again demonstrates osteopenia and total hip arthroplasty with intact bipolar prosthesis and chunky heterotopic ossifications. No new/acute abnormalities.
[2021-07-29] MEDS ORDERED: MORPHINE SULFATE 4 MG INJ IM ONE (10:15)
[2021-07-29] MEDS ORDERED: MORPHINE SULFATE 4 MG INJ ONE (10:28)
--- NOTE | 2021-07-29 10:31 | ERPHSYRPT ---
- History of Present Illness Time Seen by Provider: 07/29/21 09:50 Source: patient Exam Limitations: no limitations Patient Subjective Stated Complaint: Left hip injury Triage Nursing Assessment: Patient brought back to ED via w/c and transferred to bed per assist of 1. Patient A+O x3. Patient's skin pink,warm and dry. Patient states he got tripped over his new puppy causing him to fall on his left hip. Patient complains of left hip/pelvic pain 10/10 and is unable to bear weight to left leg. Patient's left leg noted to have shortening but no internal/external rotation noted. Physician History: 70 years old male with history of left hip replacement presented in the ER after he tripped over his puppy landing on left hip without hitting his head or loss of consciousness. Patient reports it took him like 15 minutes to get up and is having moderate to severe sharp pain in the left hip with weightbearing/movements without any numbness or weakness of the left lower extremity. Partial relief with being still. Denies injury anywhere else Occurred: just prior to arrival Reason for Fall: tripped, fell from standing pos Injuries/Pain Location: pelvis, lower extremity Loss of Consciousness: no loss of consciousness Quality: sharpness Severity of Pain-Max: severe Severity of Pain-Current: severe Modifying Factors: Improves With: immobilization. Worsens With: movement Associated Symptoms (Fall): extremity injury, trouble walking, No abdominal pain, No lightheadedness, No muscle spasms, No shortness of breath, No vision changes Allergies/Adverse Reactions: penicillin G Allergy (Mild, Verified 07/29/21 09:30) Hives meperidine [From Demerol] Adverse Reaction (Mild, Verified 07/29/21 09:30) Nausea and Vomiting Home Medications: Finasteride 5 mg [Proscar 5 MG] 5 mg PO DAILY 02/01/20 [History] Hydrochlorothiazide 25 mg [hydroDIURIL 25 MG] 25 mg PO DAILY 02/01/20 [History] Losartan Potassium 50 mg PO DAILY 02/01/20 [History] Amitriptyline HCl 10 mg [Elavil 10 mg] 10 mg PO HS 12/08/20 [History] Aspirin EC 325 mg [Ecotrin 325 MG] 325 mg PO DAILY 12/08/20 [History] Carvedilol 12.5 mg [Coreg 12.5 mg] 12.5 mg PO BID 12/08/20 [History] Mv,Phillip,Min/Iron/Folic Acid/Lut [Complete Multi Tablet] 1 each PO DAILY 12/08/20 [History] Hx Tetanus, Diphtheria Vaccination/Date Given: Yes Hx Influenza Vaccination/Date Given: Yes Hx Pneumococcal Vaccination/Date Given: No Immunizations Up to Date: Yes Travel Risk - International Travel Have you traveled outside of the country in past 3 weeks: No - Coronavirus Screening Are you exhibiting any of the following symptoms?: No Close contact with a COVID-19 positive Pt in past 14-21 Days: No - Vaccine Status Have you recieved a Covid-19 vaccination: Yes American 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: 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 - Vaccination Dates Date of 2cond Vaccination (if applicable): unknown - Review of Systems Constitutional: No Symptoms Ears, Nose, & Throat: No Symptoms Respiratory: No Symptoms Cardiac: No Symptoms Abdominal/Gastrointestinal: No Symptoms Musculoskeletal: Arthralgias, Injury, Joint Pain Skin: No Symptoms Neurological: No Symptoms Psychological: No Symptoms Endocrine: No Symptoms Immunological/Allergic: No Symptoms - Past Medical History Pertinent Past Medical History: Yes Neurological History: No Pertinent History, TIA ENT History: Cataracts Cardiac History: High Cholesterol, Hypertension, Myocardial Infarction ([place]) Respiratory History: No Pertinent History Endocrine Medical History: Other Musculoskeletal History: Arthritis, Fractures GI Medical History: No Pertinent History, GERD History: No Pertinent History Psycho-Social History: Depression Male Reproductive Disorders: No Pertinent History Other Medical History: history of DM-II - Past Surgical History Past Surgical History: Yes Neuro Surgical History: No Pertinent History Cardiac: Cardiac Catheterization Respiratory: No Pertinent History Gastrointestinal: Other Genitourinary: No Pertinent History Musculoskeletal: Orthopedic Surgery Male Surgical History: Other Other Surgical History: "fluid" removed from testicles, spinal surgey, hip replacement x2, appy, bilateral hand, total hip, stomach - Social History Smoking Status: Former smoker Exposure to second hand smoke: No Drug Use: none Patient Lives Alone: No () - Nursing Vital Signs Nursing Vital Signs: Initial Vital Signs Temperature 97.0 F 07/29/21 09:34 Pulse Rate 75 07/29/21 09:34 Respiratory Rate 18 07/29/21 09:34 Blood Pressure 130/92 07/29/21 09:34 O2 Sat by Pulse Oximetry 96 07/29/21 09:34 Pain Scale Pain Intensity 10 - Deshawn Coma Score Best Eye Response (Clarence): (4) open spontaneously Best Verbal Response (Deshawn): (5) oriented Best Motor Response (Clarence): (6) obeys commands Clarence Total: 15 - Physical Exam General Appearance: no apparent distress Head Injury: no evidence of injury, No Huffman's Sign, No contusions, No tenderness Eye Exam: PERRL/EOMI, eyes nml inspection ENT Exam: airway nml, No evidence of ENT injury Neck Exam: supple, trachea midline, full range of motion, normal alignment Respiratory/Chest Exam: normal breath sounds, respiratory distress Cardiovascular Exam: normal heart sounds, regular rate/rhythm Gastrointestinal Exam: soft, No tenderness Back Exam: normal inspection Extremity Exam: normal inspection, limited range of motion (Left hip with reproducible pain on rocking movements of left lower extremity), hip tenderness (Left), pain with movement, tenderness, other (Intact distal neurovascular left lower extremity) Neurologic Exam: alert, 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, 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 nml as tested Skin Exam: normal color SpO2 Interpretation: normal SpO2: 96 O2 Delivery: Room Air Ordered Tests: Active Orders 24 hr Category Date Time Status HIP UNI (2V) INCL PEL IF DONE Stat Exams 07/29/21 09:53 Completed Medication Summary Discontinued Medications Generic Name Dose Route Start Last Admin Trade Name Toby PRN Reason Stop Dose Admin Morphine Sulfate 4 mg 07/29/21 10:15 07/29/21 10:29 Morphine Sulfate 4 Mg Inj IM 07/29/21 10:16 4 mg STAT ONE Administration Morphine Sulfate Confirm 07/29/21 10:28 Morphine Sulfate 4 Mg Inj Administered 07/29/21 10:29 Dose 4 mg .ROUTE .STK-MED ONE - Progress Progress: pain not gone completely Progress Note: 07/29/21 10:32 He is given morphine for symptomatic relief. X-rays ruled out fracture dislocation of hardware. No new findings. I believe he has a hip contusion, recommended Tylenol/ibuprofen as needed along with applying ice and using cane for ambulation. No injury anywhere else. Do not think needs any other work-up. Stable for discharge. Counseled pt/family regarding: diagnosis, need for follow-up, rad results - Departure Departure Disposition: Home Clinical Impression: Contusion of left hip Qualifiers: Encounter type: initial encounter Qualified Code(s): S70.02XA - Contusion of left hip, initial encounter Fall Qualifiers: Encounter type: initial encounter Qualified Code(s): W19.XXXA - Unspecified fall, initial encounter Condition: Stable Critical Care Time: No Referrals: WILLI DUMAS MD [Primary Care Provider] - Follow Up with PCP/3 days JAMA HUNG [ACTIVE STAFF] - (In 3 days for reevaluation) Instructions: Contusion (DC) Additional Instructions: Take Tylenol/ibuprofen as needed. Use cane for ambulation all the times. Follow-up with a primary care and primary orthopedic surgeon for reevaluation if pain persists. Return to ER for any worsening. Apply ice
[2021-07-29 10:37] VITALS: PULSE 80
== END 2021-07-29 10:47 | disposition home or self-care (01) ==
LOC: ED 09:28
DX: S70.02XA Contusion of left hip, initial encounter (principal); W01.0XXA Fall on same level from slipping, tripping and stumbling without subsequent striking against object, initial encounter; Y93.K9 Activity, other involving animal care; Y92.89 Other specified places as the place of occurrence of the external cause; M25.552 Pain in left hip; Z79.899 Other long term (current) drug therapy; I10 Essential (primary) hypertension; E11.9 Type 2 diabetes mellitus without complications; Z86.73 Personal history of transient ischemic attack (TIA), and cerebral infarction without residual deficits; E78.00 Pure hypercholesterolemia, unspecified
CPT/HCPCS: 73502; 96372; 99284; J2270

== ENCOUNTER 2021-10-12 08:25 | Day surgery (SDC) | payer MEDICARE ==
[2013-07-22 19:24] VITALS: BP 150/90
[2021-10-12] MEDS ORDERED: Depo-Medrol 40 MG/ML IM ONE (08:26)
[2021-10-12] MEDS ORDERED: BUPIVACAINE 0.5% VIAL IJ ONE (08:26)
[2021-10-12] MEDS ORDERED: DIPRIVAN 200 MG/20 ML IV ONE (10:13)
--- NOTE | 2021-10-12 12:20 | XRAY ---
20 seconds fluoroscopy time in surgery for bilateral SI joint injections.
--- NOTE | 2021-10-12 12:29 | XRAY ---
Indication: Bilateral SI joint injection. Intraoperative fluoroscopy provided for 20 seconds. 4 digital spot image submitted for interpretation demonstrates posterior needle tip projecting over the inferior left and right SI joint. Correlate with intraoperative findings/report. Incidental partially visualized left hip arthroplasty.
[2021-10-12] MEDS ORDERED: Lactated Ringers 1,000 ML IV ONE (13:43)
== END 2021-10-12 10:31 | disposition home or self-care (01) ==
LOC: SDC-PAIN 08:25
PROVIDERS: ATTEND Psychiatry & Neurology Pain Medicine
DX: M46.1 Sacroiliitis, not elsewhere classified (principal); I10 Essential (primary) hypertension; E11.9 Type 2 diabetes mellitus without complications; Z79.899 Other long term (current) drug therapy
CPT/HCPCS: 27096; 72202; 77002; 82947; G0260; 99100; J1030; J2704

== ENCOUNTER 2022-11-02 15:43 | Emergency (ER) | payer MEDICARE ==
[2022-11-02] MEDS ORDERED: DUONEB 0.5-3 MG/3 ml Neb IH ONE (16:42)
[2022-11-02] MEDS ORDERED: HYDROCODONE-ACETAMIN 2.5-108/5 ML SOLUTION PO STA (16:44)
[2022-11-02] MEDS ORDERED: HYDROCODONE-ACETAMIN 2.5-108/5 ML SOLUTION ONE (16:48)
--- NOTE | 2022-11-02 16:48 | ERPHSYRPT ---
- History of Present Illness Time Seen by Provider: 11/02/22 16:12 Source: patient Exam Limitations: no limitations Patient Subjective Stated Complaint: C/O headache since the day after Candice. States he now has a cough, sore throat, urinary issues for the past few days as well. [place] [facility] [place] Triage Nursing Assessment: Patient ambulated back to ED. No SOB. He is alert and oriented. A forceful, dry, non-productive cough is present. Patient is hoarse. Throat is red. ANGELA CHERRY. Physician History: 70 years old female with history of hypertension, hyperlipidemia, diabetes mellitus presented in the ER with chief complaint of flulike symptoms for almost 2 weeks. Patient reports having off-and-on headache for 2 weeks and cough congestion and was diagnosed with influenza A almost 4 days ago and is having progressive worsening of symptoms with cough which gets worse with lying down and is unable to sleep for the last couple of days. Feeling weak fatigued tired and dehydrated. Subjective feeling of fever. Because of coughing spell feels shortness of breath during those episodes. Reports that he has been coughing so hard sometimes he is loses control and urine. Timing/Duration: week(s) (2), gradual onset, worse Cough Quality/Degree: moderate, dry cough Possible Cause: illness exposure Modifying Factors: Worsens With: coughing Associated Symptoms: chest pain/soreness, cough, headache, muscle aches, nasal congestion, shortness of breath, sore throat Allergies/Adverse Reactions: penicillin G Allergy (Mild, Verified 11/02/22 16:22) Hives meperidine [From Demerol] Adverse Reaction (Mild, Verified 11/02/22 16:22) Nausea and Vomiting Home Medications: Finasteride 5 mg [Proscar 5 MG] 5 mg PO DAILY 02/01/20 [History] Hydrochlorothiazide 25 mg [hydroDIURIL 25 MG] 25 mg PO DAILY 02/01/20 [History] Losartan Potassium 50 mg PO DAILY 02/01/20 [History] Amitriptyline HCl 10 mg [Elavil 10 mg] 10 mg PO HS 12/08/20 [History] Aspirin EC 325 mg [Ecotrin 325 MG] 325 mg PO DAILY 12/08/20 [History] Carvedilol 12.5 mg [Coreg 12.5 mg] 12.5 mg PO BID 12/08/20 [History] Hx Tetanus, Diphtheria Vaccination/Date Given: Yes Hx Influenza Vaccination/Date Given: Yes Hx Pneumococcal Vaccination/Date Given: Yes Immunizations Up to Date: Yes Travel Risk - International Travel Have you traveled outside of the country in past 3 weeks: No - Coronavirus Screening Are you exhibiting any of the following symptoms?: Yes Symptoms: Cough: New Onset, Headaches/Body Aches/Fatigue Close contact with a COVID-19 positive Pt in past 14-21 Days: No - Vaccine Status Have you recieved a Covid-19 vaccination: Yes 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 - Vaccination Dates Date of 2cond Vaccination (if applicable): unknown - Review of Systems Constitutional: Fatigue, Weakness Eyes: No Symptoms Ears, Nose, & Throat: Nose Congestion, Throat Swelling Respiratory: Cough, Dyspnea Cardiac: No Symptoms Abdominal/Gastrointestinal: No Symptoms Genitourinary Symptoms: No Symptoms Musculoskeletal: Myalgias Skin: No Symptoms Neurological: Headache Psychological: No Symptoms Endocrine: No Symptoms Immunological/Allergic: No Symptoms - Past Medical History Pertinent Past Medical History: Yes Neurological History: No Pertinent History, TIA ENT History: Cataracts Cardiac History: High Cholesterol, Hypertension, Myocardial Infarction (DC) Respiratory History: No Pertinent History Endocrine Medical History: Diabetes Type II, Other Musculoskeletal History: Arthritis, Fractures GI Medical History: No Pertinent History, GERD History: No Pertinent History Psycho-Social History: Depression Male Reproductive Disorders: No Pertinent History Other Medical History: history of DM-II - Past Surgical History Past Surgical History: Yes Neuro Surgical History: No Pertinent History Cardiac: Cardiac Catheterization, Cardiac Stent Respiratory: No Pertinent History Gastrointestinal: Appendectomy, Other Genitourinary: No Pertinent History Musculoskeletal: Orthopedic Surgery Male Surgical History: Other Other Surgical History: "fluid" removed from testicles, spinal surgey, hip replacement x2, bilateral hand, total hip - Social History Smoking Status: Former smoker Exposure to second hand smoke: No Drug Use: none Patient Lives Alone: No () - Nursing Vital Signs Nursing Vital Signs: Initial Vital Signs Temperature 98 F 11/02/22 16:14 Pulse Rate 76 11/02/22 16:14 Respiratory Rate 18 11/02/22 16:14 Blood Pressure 109/63 11/02/22 16:14 O2 Sat by Pulse Oximetry 98 11/02/22 16:14 Pain Scale Pain Intensity 5 - Physical Exam General Appearance: no apparent distress, alert Eye Exam: PERRL/EOMI, eyes nml inspection Ears, Nose, Throat Exam: pharyngeal erythema Neck Exam: normal inspection, supple, full range of motion Respiratory Exam: wheezing, No respiratory distress, No accessory muscle use Cardiovascular Exam: regular rate/rhythm, normal heart sounds Gastrointestinal/Abdomen Exam: soft, normal bowel sounds, No tenderness Back Exam: normal inspection, normal range of motion Extremity Exam: normal inspection, normal range of motion Neurologic Exam: alert, 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, cooperative Skin Exam: normal color SpO2 Interpretation: normal SpO2: 98 O2 Delivery: Room Air Ordered Tests: Active Orders 24 hr Category Date Time Status IV Insertion STAT Care 11/02/22 16:42 Active CHEST 1 VIEW (PORTABLE) Stat Exams 11/02/22 16:35 Completed BLOOD CULTURE Stat Lab 11/02/22 17:15 Received CBC W DIFF Stat Lab 11/02/22 17:15 Completed CMP Stat Lab 11/02/22 17:15 Completed Lactic Acid Stat Lab 11/02/22 17:10 Completed MAGNESIUM Stat Lab 11/02/22 17:15 Completed NT PRO BNP Stat Lab 11/02/22 17:15 Completed PROCALCITONIN Stat Lab 11/02/22 Completed UA W/RFX UR CULTURE Stat Lab 11/02/22 17:24 Completed Respiratory Therapy Assessment DAILY RT 11/02/22 16:57 Active Medication Summary Discontinued Medications Generic Name Dose Route Start Last Admin Trade Name Solomonq PRN Reason Stop Dose Admin Hydrocodone Bitart/Acetaminophen 10 ml 11/02/22 16:44 11/02/22 16:50 Hydrocodone/Acetaminophen 5 Ml Udcup PO 11/02/22 16:45 10 ml STAT STA Administration Hydrocodone Bitart/Acetaminophen Confirm 11/02/22 16:48 Hydrocodone/Acetaminophen 5 Ml Udcup Administered 11/02/22 16:49 Dose 10 ml .ROUTE .STK-MED ONE Albuterol Sulfate Confirm 11/02/22 16:51 Albuterol Sulfate 2.5 Mg/3 Ml Neb Administered 11/02/22 16:52 Dose 2.5 mg IH .STK-MED ONE Albuterol Sulfate 2.5 mg 11/02/22 16:57 11/02/22 16:58 Albuterol Sulfate 2.5 Mg/3 Ml [facility] 11/02/22 16:58 2.5 mg STAT ONE Administration Albuterol/Ipratropium 3 ml 11/02/22 16:42 11/02/22 17:00 Ipratropium/Albuterol Sulfate 3 Ml [facility] 11/02/22 16:43 Not Given STAT ONE Doxycycline Hyclate 100 mg 11/02/22 19:00 11/02/22 19:08 Doxycycline Hyclate 100 Mg Tablet PO 11/02/22 19:01 100 mg STAT ONE Administration Doxycycline Hyclate Confirm 11/02/22 19:08 Doxycycline Hyclate 100 Mg Tablet Administered 11/02/22 19:09 Dose 100 mg .ROUTE .K-MED ONE Lab/Rad Data: Laboratory Result Diagrams 11/02/22 17:15 11/02/22 17:15 Laboratory Results 11/02/22 11/02/22 11/02/22 Range/Units Unknown Unknown 17:24 WBC (4.0-10.5) x10^3/uL RBC (4.1-5.6) x10^6/uL Hgb (12.5-18.0) g/dL Hct (42-50) % MCV (78-100) fL MCH (26-32) pg MCHC (32-36) g/dL RDW (11.5-14.0) % Plt Count (150-450) x10^3/uL MPV (7.5-11.0) fL Gran % (36.0-66.0) % Immature Gran % (Auto) (0.00-0.4) % Nucleat RBC Rel Count (0.00-0.1) % Eos # (Auto) (0-0.5) x10^3/uL Immature Gran # (Auto) (0.00-0.03) x10^3u/L Absolute Lymphs (auto) (1.0-4.6) x10^3/uL Absolute Monos (auto) (0.0-1.3) x10^3/uL Absolute Nucleated RBC (0.00-0.01) x10^3u/L Lymphocytes % (24.0-44.0) % Monocytes % (0.0-12.0) % Eosinophils % (0.00-5.0) % Basophils % (0.0-0.4) % Absolute Granulocytes (1.4-6.9) x10^3/uL Basophils # (0-0.4) x10^3/uL Sodium (137-145) mmol/L Potassium (3.5-5.1) mmol/L Chloride (98-107) mmol/L Carbon Dioxide (22-30) mmol/L Anion Gap (5-15) MEQ/L BUN (9-20) mg/dL Creatinine (0.66-1.25) mg/dL Estimated GFR ML/MIN Glucose (74-106) mg/dL Lactic Acid (0.4-2.0) Calcium (8.4-10.2) mg/dL Magnesium (1.6-2.3) mg/dL Total Bilirubin (0.2-1.3) mg/dL AST (17-59) U/L ALT (0-50) U/L Alkaline Phosphatase (38-126) U/L NT-Pro-B Natriuret Pep (0-900) pg/mL Serum Total Protein (6.3-8.2) g/dL Albumin (3.5-5.0) g/dL Procalcitonin 0.161 H (0.030-0.080) ng/mL Urine Color Yellow (Yellow) Urine Appearance Clear (Clear) Urine pH 5.5 (4.6-8.0) Ur Specific [place] 1.015 (1.005-1.030) Urine Protein Negative (Negative) Urine Ketones Negative (Negative) Urine Blood Negative (Negative) Urine Nitrite Negative (Negative) Urine Bilirubin Negative (Negative) Urine Urobilinogen 0.2 (0.2) mg/dL Ur Leukocyte Esterase Negative (Negative) U Hyaline Cast (Auto) 0-2 (0-2) /LPF Urine Microscopic RBC 0-2 (0-5) /HPF Urine Microscopic WBC 0-2 (0-5) /HPF Ur Epithelial Cells None Seen (None Seen) /HPF Urine Bacteria None Seen (None Seen) /HPF Urine Culture Reflexed NO (NO) Urine Glucose Negative (Negative) mg/dL Influenza Type A Ag POSITIVE (NEGATIVE) Influenza Type B Ag NEGATIVE (NEGATIVE) RSV (PCR) NEGATIVE (Negative) SARS-CoV-2 (PCR) NEGATIVE (NEGATIVE) 11/02/22 11/02/22 11/02/22 Range/Units 17:15 17:15 17:10 WBC 11.4 H (4.0-10.5) x10^3/uL RBC 3.31 L (4.1-5.6) x10^6/uL Hgb 9.7 L (12.5-18.0) g/dL Hct 28.4 L (42-50) % MCV 85.8 (78-100) fL MCH 29.3 (26-32) pg MCHC 34.2 (32-36) g/dL RDW 12.6 (11.5-14.0) % Plt Count 302 (150-450) x10^3/uL MPV 9.9 (7.5-11.0) fL Gran % 74.0 H (36.0-66.0) % Immature Gran % (Auto) 0.8 H (0.00-0.4) % Nucleat RBC Rel Count 0.0 (0.00-0.1) % Eos # (Auto) 0.07 (0-0.5) x10^3/uL Immature Gran # (Auto) 0.09 H (0.00-0.03) x10^3u/L Absolute Lymphs (auto) 2.03 (1.0-4.6) x10^3/uL Absolute Monos (auto) 0.72 (0.0-1.3) x10^3/uL Absolute Nucleated RBC 0.00 (0.00-0.01) x10^3u/L Lymphocytes % 17.9 L (24.0-44.0) % Monocytes % 6.3 (0.0-12.0) % Eosinophils % 0.6 (0.00-5.0) % Basophils % 0.4 (0.0-0.4) % Absolute Granulocytes 8.39 H (1.4-6.9) x10^3/uL Basophils # 0.05 (0-0.4) x10^3/uL Sodium 131 L (137-145) mmol/L Potassium 3.4 L (3.5-5.1) mmol/L Chloride 99 (98-107) mmol/L Carbon Dioxide 21 L (22-30) mmol/L Anion Gap 14.0 (5-15) MEQ/L BUN 29 H (9-20) mg/dL Creatinine 1.10 (0.66-1.25) mg/dL Estimated GFR > 60.0 ML/MIN Glucose 99 (74-106) mg/dL Lactic Acid 1.7 (0.4-2.0) Calcium 9.0 (8.4-10.2) mg/dL Magnesium 2.1 (1.6-2.3) mg/dL Total Bilirubin 0.50 (0.2-1.3) mg/dL AST 40 (17-59) U/L ALT 31 (0-50) U/L Alkaline Phosphatase 127 H (38-126) U/L NT-Pro-B Natriuret Pep 588 (0-900) pg/mL Serum Total Protein 7.3 (6.3-8.2) g/dL Albumin 3.8 (3.5-5.0) g/dL Procalcitonin (0.030-0.080) ng/mL Urine Color (Yellow) Urine Appearance (Clear) Urine pH (4.6-8.0) Ur Specific [place] (1.005-1.030) Urine Protein (Negative) Urine Ketones (Negative) Urine Blood (Negative) Urine Nitrite (Negative) Urine Bilirubin (Negative) Urine Urobilinogen (0.2) mg/dL Ur Leukocyte Esterase (Negative) U Hyaline Cast (Auto) (0-2) /LPF Urine Microscopic RBC (0-5) /HPF Urine Microscopic WBC (0-5) /HPF Ur Epithelial Cells (None Seen) /HPF Urine Bacteria (None Seen) /HPF Urine Culture Reflexed (NO) Urine Glucose (Negative) mg/dL Influenza Type A Ag (NEGATIVE) Influenza Type B Ag (NEGATIVE) RSV (PCR) (Negative) SARS-CoV-2 (PCR) (NEGATIVE) - Progress Progress: improved, re-examined Air Movement: good Progress Note: 11/02/22 19:13 71 years old male with history of hypertension, hyperlipidemia, diabetes mellitus, tobacco abuse is evaluated for worsening cough with a positive influenza A few days ago along with other flulike symptoms. Patient is coughing nonstop on presentation in the ER and gets short of breath while coughing otherwise no difficulty breathing. No chest pain or palpitations. I have given him neb treatments along with hydrocodone liquid, on reevaluation patient is feeling much better. Work-up showed white count of 11, normal lactate although has a procalcitonin of 0.1. No obvious pneumonia. I believe patient has viral infection with superimposed bacterial component/bronchitis, started on doxycycline and will give Symbicort to go home as patient is diabetic and steroids will make his blood sugar goal worse. Symptomatic treatment for cough. Patient is offered observation admission but he does not want to stay in the hospital at all as he has to take care of his who was has fractured her hip and is on wheelchair and a young kid. Patient on reevaluation is not in any distress at all. I have discussed with him about symptoms/signs of worsening needing return to ER which he seems understanding. Stable for discharge. Blood Culture(s) Obtained: Yes Antibiotics given: Yes Counseled pt/family regarding: lab results, diagnosis, need for follow-up, rad results - Departure Departure Disposition: Home Clinical Impression: Influenza A, Bronchitis Condition: Stable Critical Care Time: No Referrals: WILLI DUMAS MD [Primary Care Provider] - Follow up/PCP as directed (1-2 days for reevaluation) Instructions: Acute Bronchitis, Flu, Adult (DC) Additional Instructions: Take Tylenol as needed. Monitor your blood sugar regularly and try to keep it under control. Follow-up with primary care for reevaluation. Return to ER for worsening of symptoms like cough or if having chest pain/shortness of breath/persistent high-grade fever etc. Prescriptions: Hydrocodone/Acetaminophen [Hydrocodone-Acetamin 2.5-108/5 ml Solution] 10 ml PO Q6-8HPRN PRN 3 Days #118 udcup MDD 40ml PRN Reason: Cough Doxycycline Hyclate 100 mg [Vibramycin 100 MG] 100 mg PO BID #14 tab
[2022-11-02] MEDS ORDERED: PROVENTIL 2.5 MG/3 ML NEB IH ONE ×2 (16:51→16:57)
--- NOTE | 2022-11-02 16:55 | XRAY ---
Indication: Cough, congestion, and short of breath. Comparison: April 12, 2020 Portable chest remains inflated and clear. Heart not enlarged. Bony thorax intact again with osteopenia, degenerative changes, old right 6 rib fracture, and T11/T12 kyphoplasty. No new/acute findings.
[2022-11-02 18:02] LABS: Absolute Neutrophil Ct (ANC) 8.39 x10^3/uL (1.4-6.9); Basophil (Absolute #) 0.05 x10^3/uL (0-0.4); Eosinophil % 0.6 % (0.00-5.0); Eosinophil (Absolute #) 0.07 x10^3/uL (0-0.5); Hematocrit 28.4 % (42-50); Hemoglobin 9.7 g/dL (12.5-18.0); Lymphocyte (Absolute #) 2.03 x10^3/uL (1.0-4.6); Lymphocytes % 17.9 % (24.0-44.0); Mean Cell Volume 85.8 fL (78-100); Mean Corpuscular Hemoglobin 29.3 pg (26-32); Mean Corpuscular Hgb Concent. 34.2 g/dL (32-36); Mean Platelet Volume 9.9 fL (7.5-11.0); Monocyte (Absolute #) 0.72 x10^3/uL (0.0-1.3); Monocytes % 6.3 % (0.0-12.0); Platelet Count 302 x10^3/uL (150-450); Red Blood Count 3.31 x10^6/uL (4.1-5.6); Red Cell Distribution Width 12.6 % (11.5-14.0); White Blood Count 11.4 x10^3/uL (4.0-10.5)
[2022-11-02 18:10] LABS: ALBUMIN 3.8 g/dL (3.5-5.0); ALKALINE PHOSPHATASE 127 U/L (38-126); BLOOD UREA NITROGEN 29 mg/dL (9-20); CHLORIDE 99 mmol/L (98-107); Carbon Dioxide 21 mmol/L (22-30); EST GLOMERULAR FILTRATION RATE > 60.0 ML/MIN; Glucose 99 mg/dL (74-106); MAGNESIUM 2.1 mg/dL (1.6-2.3); NT PRO BNP 588 pg/mL (0-900); Potassium 3.4 mmol/L (3.5-5.1); SGOT/AST 40 U/L (17-59); SGPT/ALT 31 U/L (0-50); SODIUM 131 mmol/L (137-145); Total Protein 7.3 g/dL (6.3-8.2)
[2022-11-02 18:17] LABS: Appearance Clear (Clear); Bacteria None Seen /HPF (None Seen); Bilirubin Negative (Negative); Blood Negative (Negative); Epithelial Cells None Seen /HPF (None Seen); Glucose Negative (Negative); Hyaline Casts 0-2 /LPF (0-2); Ketones Negative (Negative); Leukocyte Esterase Negative (Negative); Nitrite Negative (Negative); Ph 5.5 (4.6-8.0); Protein,Urine Dip Negative (Negative); RBC 0-2 /HPF (0-5); Specific Gravity 1.015 (1.005-1.030); Urobilinogen 0.2 mg/dL (0.2); WBC 0-2 /HPF (0-5)
[2022-11-02 18:28] LABS: INFLUENZA B NEGATIVE (NEGATIVE); RESPIRATORY SYNCTIAL VIRUS NEGATIVE (Negative); SARS-CoV-2 Xpert Express NEGATIVE (NEGATIVE)
[2022-11-02 18:31] LABS: ADD URINE CULTURE? NO (NO)
[2022-11-02 18:34] LABS: INFLUENZA A POSITIVE (NEGATIVE)
[2022-11-02] MEDS ORDERED: Vibramycin 100 MG PO ONE (19:00)
[2022-11-02] MEDS ORDERED: Vibramycin 100 MG ONE (19:08)
[2022-11-02 19:25] VITALS: BP 103/61; PULSE 81; O2SAT 97
== END 2022-11-02 19:28 | disposition home or self-care (01) ==
LOC: ED 15:43
DX: J40 Bronchitis, not specified as acute or chronic (principal); J10.1 Influenza due to other identified influenza virus with other respiratory manifestations; R05.1 Acute cough; R51.9 Headache, unspecified; R53.1 Weakness; R53.83 Other fatigue; E78.5 Hyperlipidemia, unspecified; I10 Essential (primary) hypertension; E11.9 Type 2 diabetes mellitus without complications; Z79.891 Long term (current) use of opiate analgesic; Z79.899 Other long term (current) drug therapy
CPT/HCPCS: 0241U; 36415; 71045; 80053; 81001; 83605; 83735; 83880; 84145; 85025; 87040; 94640; 99283; J7609; A9270-GY

== ENCOUNTER 2023-01-09 16:20 | Observation (INO) | payer MEDICARE ==
[2023-01-09 18:24] LABS: Absolute Neutrophil Ct (ANC) 5.19 x10^3/uL (1.4-6.9); BASOPHIL % 1.1 % (0.0-0.4); Eosinophil % 3.2 % (0.00-5.0); Eosinophil (Absolute #) 0.28 x10^3/uL (0-0.5); Hematocrit 32.7 % (42-50); Hemoglobin 10.8 g/dL (12.5-18.0); IMMATURE GRAN # 0.07 x10^3u/L (0.00-0.03); IMMATURE GRAN % 0.8 % (0.00-0.4); Lymphocyte (Absolute #) 2.56 x10^3/uL (1.0-4.6); Lymphocytes % 29.2 % (24.0-44.0); Mean Cell Volume 88.6 fL (78-100); Mean Corpuscular Hemoglobin 29.3 pg (26-32); Mean Platelet Volume 9.6 fL (7.5-11.0); Monocyte (Absolute #) 0.56 x10^3/uL (0.0-1.3); Monocytes % 6.4 % (0.0-12.0); Neutrophil % 59.3 % (36.0-66.0); Platelet Count 260 x10^3/uL (150-450); Red Blood Count 3.69 x10^6/uL (4.1-5.6); Red Cell Distribution Width 13.2 % (11.5-14.0); White Blood Count 8.8 x10^3/uL (4.0-10.5)
[2023-01-09 18:25] LABS: INFLUENZA A NEGATIVE (NEGATIVE); INFLUENZA B NEGATIVE (NEGATIVE); RESPIRATORY SYNCTIAL VIRUS NEGATIVE (NEGATIVE); SARS-CoV-2 Xpert Express NEGATIVE (NEGATIVE)
[2023-01-09 18:33] LABS: ALBUMIN 3.5 g/dL (3.5-5.0); ALKALINE PHOSPHATASE 110 U/L (38-126); ANION GAP 13.8 MEQ/L (5-15); BLOOD UREA NITROGEN 17 mg/dL (9-20); CHLORIDE 100 mmol/L (98-107); Calcium 8.9 mg/dL (8.4-10.2); Carbon Dioxide 27 mmol/L (22-30); Creatinine 1 0.69 mg/dL (0.66-1.25); EST GLOMERULAR FILTRATION RATE > 60.0 ML/MIN; Glucose 97 mg/dL (74-106); Potassium 3.7 mmol/L (3.5-5.1); SGOT/AST 65 U/L (17-59); SGPT/ALT 45 U/L (0-50); SODIUM 136 mmol/L (137-145); Total Protein 6.3 g/dL (6.3-8.2)
--- NOTE | 2023-01-09 20:39 | PCM.HP.ADD ---
Addendum to History & Physical - History & Physical Addendum Addendum to History & Physical: This certifies that the History & Physical in the electronic chart reflects the current health status of the patient. If there are changes in the H&P these changes/exceptions are listed as follows.
[2023-01-09] MEDS: Sodium Chloride 0.9% 1000 ML 1,000 ML IV SCH (21:14)
[2023-01-09] MEDS: FLAGYL 500 MG IVPB 500 MG/100 ML BAG IV SCH (21:14)
[2023-01-09] MEDS: COREG 12.5 MG PO SCH (21:15)
[2023-01-09] MEDS: Mirapex 0.5 MG Tablet PO SCH (21:15)
[2023-01-09] MEDS ORDERED: AMITRIPTYLINE 25 MG TABLET PO SCH (22:00)
[2023-01-10] MEDS: Sodium Chloride 0.9% 1000 ML 1,000 ML IV SCH (03:57)
[2023-01-10] MEDS: FLAGYL 500 MG IVPB 500 MG/100 ML BAG IV SCH (05:29)
[2023-01-10] MEDS ORDERED: Nitrostat 0.4 MG Tablet SL PRN (07:32)
[2023-01-10] MEDS ORDERED: Glucophage 500 MG PO SCH (08:00)
[2023-01-10] MEDS ORDERED: Effexor XR 75 MG PO SCH (10:00)
[2023-01-10] MEDS ORDERED: hydroDIURIL 25 MG PO SCH (10:00)
[2023-01-10] MEDS ORDERED: Ecotrin 325 MG PO SCH (10:00)
[2023-01-10] MEDS ORDERED: Cozaar 50 MG PO SCH (10:00)
[2023-01-10] MEDS ORDERED: ZOCOR 20MG PO SCH (10:00)
[2023-01-10] MEDS ORDERED: Flomax 0.4 MG PO SCH (10:00)
[2023-01-10] MEDS ORDERED: LOPID PO SCH (10:00)
[2023-01-10] MEDS ORDERED: ceLEXa 20 MG PO SCH (10:00)
[2023-01-10] MEDS ORDERED: HOLD METFORMIN PRODUCTS FOR 48 HOURS MC SCH (10:00)
[2023-01-10] MEDS ORDERED: Proscar 5 MG PO SCH (10:00)
[2023-01-10] MEDS ORDERED: NON-FORMULARY ITEM (Pravastatin Sodium [Pravastatin Sodium] 40 MG Tablet) PO SCH (10:00)
[2023-01-10] MEDS: COREG 12.5 MG PO SCH (10:28)
[2023-01-10] MEDS: Mirapex 0.5 MG Tablet PO SCH (10:29)
--- NOTE | 2023-01-10 11:02 | XRAY ---
Indication: Bilateral lower abdomen pain. Multiple contiguous axial images obtained through the abdomen and pelvis using 80 cc Isovue 370 contrast. Comparison: None Lung bases demonstrates 1.2 x 2.1 cm right costophrenic angle indeterminate noncalcified nodule. Heart not enlarged. Noncontrasted stomach and bowel loops appear nonobstructed. Mild descending and sigmoid diverticulosis without diverticulitis. Previous appendectomy. Mild diffuse fatty liver. No free fluid/air. Remaining liver, pancreas, spleen, adrenal glands, kidneys, ureters, and bladder are unremarkable. Mild scattered aortoiliac calcifications. No AAA or pathologic retroperitoneal lymphadenopathy. Osseous structures intact with osteopenia, T11/T12/L3/L4 kyphoplasty, and left total hip arthroplasty. Small fatty right inguinal hernia. Impression: 1. Indeterminant 1.2 x 2.1 cm right costophrenic angle noncalcified nodule. 2. Colonic diverticulosis without diverticulitis. 3. Incidental fatty liver, arteriosclerotic disease, chronic bony findings, and small fatty right inguinal hernia.
[2023-01-10 11:50] VITALS: BP 137/64; PULSE 82; O2SAT 95
--- NOTE | 2023-01-10 13:23 | PCM.SSS ---
History of Present Illness - Chief Complaint Chief Complaint: abdominal pain and diarrhea for 2-3 days History of Present Illness: is a 72 year old male admitted with complaining of generalized abdominal pain mainly in the right and lower lower quadrant associated with diarrhea. Patient denies any fever or chills. Patient also denies any blood in the stool or urine. - Review of Systems Constitutional: No Fever, No Chills Eyes: No Symptoms Ears, Nose, & Throat: No Symptoms Respiratory: No Cough, No Short Of Breath Cardiac: No Chest Pain, No Edema, No Syncope Abdominal/Gastrointestinal: Abdominal Pain, Diarrhea, No Nausea, No Vomiting, No Constipation, No Hematemesis, No Hematochezia, No Melena, No Appetite Changes Genitourinary Symptoms: No Dysuria Musculoskeletal: No Back Pain, No Neck Pain Skin: No Rash Neurological: No Dizziness, No Focal Weakness, No Sensory Changes Psychological: No Symptoms Endocrine: No Symptoms Hematologic/Lymphatic: No Symptoms Immunological/Allergic: No Symptoms Medications & Allergies Home Medications: Home Medication List Finasteride 5 mg [Proscar 5 MG] 5 mg PO DAILY 02/01/20 [History Confirmed 01/09/23] Hydrochlorothiazide 25 mg [hydroDIURIL 25 MG] 25 mg PO DAILY 02/01/20 [History Confirmed 01/09/23] Losartan Potassium 50 mg PO DAILY 02/01/20 [History Confirmed 01/09/23] Amitriptyline HCl 10 mg [Elavil 10 mg] 25 mg PO HS 12/08/20 [History Confirmed 01/09/23] Aspirin EC 325 mg [Ecotrin 325 MG] 325 mg PO DAILY 12/08/20 [History Confirmed 01/09/23] Carvedilol 12.5 mg [Coreg 12.5 mg] 12.5 mg PO BID 12/08/20 [History Confirmed 01/09/23] Citalopram Hydrobromide 20 mg* [ceLEXa 20 MG] 40 mg PO DAILY 01/09/23 [History Confirmed 01/09/23] Metformin HCl 500 mg [Glucophage 500 MG] 500 mg PO BID 01/09/23 [History Confirmed 01/09/23] Nitroglycerin 0.4 mg Tablet [Nitrostat 0.4 MG Tablet] 0.4 mg SL Q5MIN PRN MR X 3 PRN 01/09/23 [History Confirmed 01/09/23] Pramipexole Di-HCl [Pramipexole Dihydrochloride] 0.5 mg PO BID 01/09/23 [History Confirmed 01/09/23] Pravastatin Sodium 40 mg PO DAILY 01/09/23 [History Confirmed 01/09/23] Tamsulosin HCl 0.4 mg [Flomax 0.4 MG] 0.8 mg PO DAILY 01/09/23 [History Confirmed 01/09/23] Venlafaxine HCl [Venlafaxine HCl ER] 150 mg PO DAILY 01/09/23 [History Confirmed 01/09/23] gemfibroziL [Gemfibrozil] 600 mg PO DAILY 01/09/23 [History Confirmed 01/09/23] Metronidazole 500 mg [Flagyl 500 MG] 500 mg PO TID 5 Days #15 tablet 01/10/23 [Rx] Allergies/Adverse Reactions: Allergies Allergy/AdvReac Type Severity Reaction Status Date / Time penicillin G Allergy Mild Hives Verified 11/02/22 16:22 meperidine [From Demerol] AdvReac Mild Nausea and Verified 11/02/22 16:22 Vomiting - Past Medical History Past Medical History: Yes Neurological History: No Pertinent History, TIA ENT History: Cataracts Cardiac History: Angina, High Cholesterol, Hypertension, Myocardial Infarction ([place]) Respiratory History: COPD, Emphysema, Sleep Apnea Endocrine Medical History: Diabetes Type II, Other Musculoskelatal History: Arthritis, Fractures GI Medical History: No Pertinent History, GERD History: No Pertinent History Pyscho-Social History: Bipolar, Depression Male Reproductive Disorders: No Pertinent History Comment: history of DM-II - Past Surgical History Past Surgical History: Yes Neuro Surgical History: No Pertinent History Cardiac History: Cardiac Catheterization, Cardiac Stent Respiratory Surgery: No Pertinent History GI Surgical History: Appendectomy, Other Genitourinary Surgical Hx: No Pertinent History Musculskeletal Surgical Hx: Orthopedic Surgery Male Surgical History: Other Other Surgical History: HYDROCELE REPAIR, spinal surgey, hip replacement x2, bilateral hand, total hip, GJ VAGOTOMY 1970, HEMORRHOIDECTOMY - Social History Smoking Status: Never smoker Exposure to second hand smoke: No Alcohol: None Drug Use: none - Physical Exam Vital Signs: Vital Signs - 24 hr Temp Pulse Resp BP Pulse Ox 01/10/23 11:46 98.3 F 82 16 137/64 95 01/10/23 07:14 97.9 F 75 16 134/78 96 01/10/23 03:48 97.8 F 72 16 133/74 97 01/09/23 23:51 97.5 F 72 16 141/62 97 01/09/23 20:00 97.3 F 75 18 134/60 95 01/09/23 17:25 97.9 F 75 16 142/72 96 01/09/23 16:57 97.9 F 75 16 142/72 96 01/09/23 16:47 97.9 F 75 16 142/72 96 General Appearance: no apparent distress, alert Neurologic Exam: alert, 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, cooperative, normal mood/affect, nml cerebellar function, nml station & gait, sensation nml, No motor deficits Eye Exam: PERRL/EOMI, eyes nml inspection Ears, Nose, Throat Exam: normal ENT inspection, TMs normal, pharynx normal, moist mucous membranes Neck Exam: normal inspection, non-tender, supple, full range of motion Respiratory Exam: normal breath sounds, lungs clear, No respiratory distress Cardiovascular Exam: regular rate/rhythm, normal heart sounds, normal peripheral pulses Gastrointestinal/Abdomen Exam: soft, tenderness, No mass Back Exam: normal inspection, normal range of motion, No CVA tenderness, No vertebral tenderness Extremity Exam: normal inspection, normal range of motion, pelvis stable Skin Exam: normal color, warm, dry, No rash Lymphatic Exam: No adenopathy Results - Labs Lab/Micro Results: Lab Results-Last 24 Hours 01/09/23 01/09/23 01/09/23 Range/Units 17:20 17:20 17:25 WBC 8.8 (4.0-10.5) x10^3/uL RBC 3.69 L (4.1-5.6) x10^6/uL Hgb 10.8 L (12.5-18.0) g/dL Hct 32.7 L (42-50) % MCV 88.6 (78-100) fL MCH 29.3 (26-32) pg MCHC 33.0 (32-36) g/dL RDW 13.2 (11.5-14.0) % Plt Count 260 (150-450) x10^3/uL MPV 9.6 (7.5-11.0) fL Gran % 59.3 (36.0-66.0) % Immature Gran % (Auto) 0.8 H (0.00-0.4) % Nucleat RBC Rel Count 0.0 (0.00-0.1) % Eos # (Auto) 0.28 (0-0.5) x10^3/uL Immature Gran # (Auto) 0.07 H (0.00-0.03) x10^3u/L Absolute Lymphs (auto) 2.56 (1.0-4.6) x10^3/uL Absolute Monos (auto) 0.56 (0.0-1.3) x10^3/uL Absolute Nucleated RBC 0.00 (0.00-0.01) x10^3u/L Lymphocytes % 29.2 (24.0-44.0) % Monocytes % 6.4 (0.0-12.0) % Eosinophils % 3.2 (0.00-5.0) % Basophils % 1.1 (0.0-0.4) % Absolute Granulocytes 5.19 (1.4-6.9) x10^3/uL Basophils # 0.10 (0-0.4) x10^3/uL Sodium 136 L (137-145) mmol/L Potassium 3.7 (3.5-5.1) mmol/L Chloride 100 (98-107) mmol/L Carbon Dioxide 27 (22-30) mmol/L Anion Gap 13.8 (5-15) MEQ/L BUN 17 (9-20) mg/dL Creatinine 0.69 (0.66-1.25) mg/dL Estimated GFR > 60.0 ML/MIN Glucose 97 (74-106) mg/dL Calcium 8.9 (8.4-10.2) mg/dL Total Bilirubin 0.50 (0.2-1.3) mg/dL AST 65 H (17-59) U/L ALT 45 (0-50) U/L Alkaline Phosphatase 110 (38-126) U/L Serum Total Protein 6.3 (6.3-8.2) g/dL Albumin 3.5 (3.5-5.0) g/dL Influenza Type A Ag NEGATIVE (NEGATIVE) Influenza Type B Ag NEGATIVE (NEGATIVE) RSV (PCR) NEGATIVE (NEGATIVE) SARS-CoV-2 (PCR) NEGATIVE (NEGATIVE) - Radiology Impressions Radiology Exams & Impressions: Radiology Procedures Category Date Time Status ABDOMEN AND PELVIS W CONTRAST [CT] Urgent Exams 01/09/23 19:[address]/ABDOMEN AND PELVIS W CONTRAST Indication: Bilateral lower abdomen pain. Multiple contiguous axial images obtained through the abdomen and pelvis using 80 cc Isovue 370 contrast. Comparison: None Lung bases demonstrates 1.2 x 2.1 cm right costophrenic angle indeterminate noncalcified nodule. Heart not enlarged. Noncontrasted stomach and bowel loops appear nonobstructed. Mild descending and sigmoid diverticulosis without diverticulitis. Previous appendectomy. Mild diffuse fatty liver. No free fluid/air. Remaining liver, pancreas, spleen, adrenal glands, kidneys, ureters, and bladder are unremarkable. Mild scattered aortoiliac calcifications. No AAA or pathologic retroperitoneal lymphadenopathy. Osseous structures intact with osteopenia, T11/T12/L3/L4 kyphoplasty, and left total hip arthroplasty. Small fatty right inguinal hernia. Impression: 1. Indeterminant 1.2 x 2.1 cm right costophrenic angle noncalcified nodule. 2. Colonic diverticulosis without diverticulitis. 3. Incidental fatty liver, arteriosclerotic disease, chronic bony findings, and small fatty right inguinal hernia. Assessment/Plan (1) Acute diverticulitis Current Visit: Yes Status: Acute Assessment & Plan: Chief Complaint Diagnosis ACUTE DIVERTICULITIS Allergies Allergy/AdvReac Type Severity Reaction Status Date / Time penicillin G Allergy Mild Hives Verified 11/02/22 16:22 meperidine [From Demerol] AdvReac Mild Nausea and Verified 11/02/22 16:22 Vomiting Vital Signs (Last 24 hours) Temp Pulse Resp BP Pulse Ox 01/10/23 11:46 98.3 F 82 16 137/64 95 01/10/23 07:14 97.9 F 75 16 134/78 96 01/10/23 03:48 97.8 F 72 16 133/74 97 01/09/23 23:51 97.5 F 72 16 141/62 97 01/09/23 20:00 97.3 F 75 18 134/60 95 03/14/23 17:25 97.9 F 75 16 142/72 96 01/09/23 16:57 97.9 F 75 16 142/72 96 01/09/23 16:47 97.9 F 75 16 142/72 96 Home Medications Medication Instructions Recorded Confirmed Last Taken Type Citalopram Hydrobromide 20 mg* 40 mg PO DAILY 01/09/23 01/09/23 Unknown History [ceLEXa 20 MG] Metformin HCl 500 mg 500 mg PO BID 01/09/23 01/09/23 Unknown History [Glucophage 500 MG] Nitroglycerin 0.4 mg Tablet 0.4 mg SL Q5MIN PRN MR X 3 PRN 01/09/23 01/09/23 Unknown History [Nitrostat 0.4 MG Tablet] Pramipexole Di-HCl [Pramipexole 0.5 mg PO BID 01/09/23 01/09/23 Unknown History Dihydrochloride] Pravastatin Sodium 40 mg PO DAILY 01/09/23 01/09/23 Unknown History Tamsulosin HCl 0.4 mg [Flomax 0.8 mg PO DAILY 01/09/23 01/09/23 Unknown History 0.4 MG] Venlafaxine HCl [Venlafaxine HCl 150 mg PO DAILY 01/09/23 01/09/23 Unknown History ER] gemfibroziL [Gemfibrozil] 600 mg PO DAILY 01/09/23 01/09/23 Unknown History Metronidazole 500 mg [Flagyl 500 mg PO TID 5 Days #15 tablet 01/10/23 Unknown Rx 500 MG] Current Medications Generic Name Dose Route Start Last Admin Trade Name Freq PRN Reason Stop Dose Admin Amitriptyline HCl 25 mg 01/09/23 22:00 01/09/23 21:15 Amitriptyline Hcl 25 Mg Tablet PO 02/08/23 21:59 25 mg HS STEFANY Administration Aspirin 325 mg 01/10/23 10:00 01/10/23 10:29 Aspirin 325 Mg Tablet.Ec PO 02/09/23 09:59 325 mg DAILY STEFANY Administration Carvedilol 12.5 mg 01/09/23 22:00 01/10/23 10:28 Carvedilol 12.5 Mg Tablet PO 02/08/23 21:59 12.5 mg BID STEFANY Administration Citalopram Hydrobromide 40 mg 01/10/23 10:00 01/10/23 10:29 Citalopram Hydrobromide 20 Mg Tablet PO 02/09/23 09:59 40 mg DAILY STEFANY Administration Finasteride 5 mg 01/10/23 10:00 01/10/23 10:30 Finasteride 5 Mg Tablet PO 02/09/23 09:59 5 mg DAILY STEFANY Administration Gemfibrozil 600 mg 01/10/23 10:00 01/10/23 10:30 Gemfibrozil 600 Mg Tablet PO 02/09/23 09:59 600 mg DAILY STEFANY Administration Hydrochlorothiazide 25 mg 01/10/23 10:00 01/10/23 10:29 Hydrochlorothiazide 25 Mg Tablet PO 02/09/23 09:59 25 mg DAILY STEFANY Administration Sodium Chloride 1,000 mls @ 150 mls/hr 01/09/23 18:30 01/10/23 03:57 Sodium Chloride 0.9% 1000 Ml IV 02/08/23 18:29 150 mls/hr .Q6H40M STEFANY Administration Metronidazole 500 mg in 100 mls @ 200 mls/hr 01/09/23 22:00 01/10/23 05:29 Flagyl 500 Mg Ivpb IV 02/08/23 21:59 200 mls/hr Q8HT STEFANY Administration Losartan Potassium 50 mg 01/10/23 10:00 01/10/23 10:28 Losartan Potassium 50 Mg Tablet PO 02/09/23 09:59 50 mg DAILY STEFANY Administration Metformin HCl 500 mg 01/12/23 08:00 Metformin Hcl 500 Mg Tablet PO 02/11/23 07:59 BIDWM STEFANY Nitroglycerin 0.4 mg 01/10/23 07:32 Nitroglycerin 0.4 Mg Tablet Bottle SL 02/09/23 07:31 Q5MIN PRN MR X 3 PRN CP Non-Formulary Medication 1 each 01/10/23 10:00 01/10/23 10:30 Hold Metformin Products For 48hrs 01/11/23 22:01 1 each BID STEFANY Administration Pramipexole Dihydrochloride 0.5 mg 01/09/23 22:00 01/10/23 10:29 Pramipexole Di-Hcl 0.5 Mg Tab PO 02/08/23 21:59 0.5 mg BID STEFANY Administration Simvastatin 40 mg 01/10/23 10:00 01/10/23 10:29 Simvastatin 20 Mg Tablet PO 02/09/23 09:59 40 mg DAILY STEFANY Administration Tamsulosin HCl 0.8 mg 01/10/23 10:00 01/10/23 10:29 Tamsulosin Hcl 0.4 Mg Cap PO 02/09/23 09:59 0.8 mg DAILY STEFANY Administration Venlafaxine HCl 150 mg 01/10/23 10:00 01/10/23 10:28 Venlafaxine Hcl 75 Mg Extended Release Capsule PO 02/09/23 09:59 150 mg DAILY STEFANY Administration Discontinued Medications Generic Name Dose Route Start Last Admin Trade Name Solomonq PRN Reason Stop Dose Admin Metformin HCl 500 mg 01/10/23 08:00 01/10/23 10:38 Metformin Hcl 500 Mg Tablet PO 02/09/23 07:59 Not Given BIDWM STEFANY Intake & Output (Last 24 hours) 01/08/23 01/09/23 01/10/23 01/11/23 11:59 11:59 11:59 11:59 Intake Total 2930 480 Output Total 3150 350 Balance -220 130 Weight 78.7 kg Laboratory Results (Last 24 hours) 01/09/23 01/09/23 01/09/23 17:25 17:20 17:20 WBC 8.8 RBC 3.69 L Hgb 10.8 L Hct 32.7 L MCV 88.6 MCH 29.3 MCHC 33.0 RDW 13.2 Plt Count 260 MPV 9.6 Gran % 59.3 Immature Gran % (Auto) 0.8 H Nucleat RBC Rel Count 0.0 Eos # (Auto) 0.28 Immature Gran # (Auto) 0.07 H Absolute Lymphs (auto) 2.56 Absolute Monos (auto) 0.56 Absolute Nucleated RBC 0.00 Lymphocytes % 29.2 Monocytes % 6.4 Eosinophils % 3.2 Basophils % 1.1 Absolute Granulocytes 5.19 Basophils # 0.10 Sodium 136 L Potassium 3.7 Chloride 100 Carbon Dioxide 27 Anion Gap 13.8 BUN 17 Creatinine 0.69 Estimated GFR > 60.0 Glucose 97 Calcium 8.9 Total Bilirubin 0.50 AST 65 H ALT 45 Alkaline Phosphatase 110 Serum Total Protein 6.3 Albumin 3.5 Influenza Type A Ag NEGATIVE Influenza Type B Ag NEGATIVE RSV (PCR) NEGATIVE SARS-CoV-2 (PCR) NEGATIVE Orders (Last 24 hours) Category Date Time Status Miscellaneous Nursing Order ROUTINE Care 01/09/23 18:19 Active Miscellaneous Nursing Order ROUTINE Care 01/09/23 18:[address] in Observation ROUTINE Care 01/09/23 18:16 Active Cardio-Pulmonary Rehab .as ordered Cons 01/09/23 17:02 Active [place] Diet Diet 01/10/23 Breakfast Completed Clear Liquid Diet 01/09/23 Dinner Completed House Regular Diet Diet 01/10/23 Lunch Active NPO Diet 01/09/23 19:01 Completed Nutritional Admission Screen ONCE Diet 01/09/23 17:34 Active ABDOMEN AND PELVIS W CONTRAST [CT] Urgent Exams 01/09/23 19:00 Completed CBC W DIFF Stat Lab 01/09/23 17:20 Completed CMP Stat Lab 01/09/23 17:20 Completed COVID/FLU/RSV Panel Stat Lab 01/09/23 17:25 Completed Amitriptyline HCl 25 mg [Amitriptyline 25 mg Tablet] Med 01/09/23 22:00 Active 25 mg PO HS Aspirin EC 325 mg [Ecotrin 325 MG] Med 01/10/23 10:00 Active 325 mg PO DAILY Carvedilol 12.5 mg [Coreg 12.5 mg] Med 01/09/23 22:00 Active 12.5 mg PO BID Citalopram Hydrobromide 20 mg* [ceLEXa 20 MG] Med 01/10/23 10:00 Active 40 mg PO DAILY Finasteride 5 mg [Proscar 5 MG] Med 01/10/23 10:00 Active 5 mg PO DAILY Gemfibrozil [Lopid] Med 01/10/23 10:00 Active 600 mg PO DAILY Hold Metformin [Hold Metformin Products For 48 Hours] Med 01/10/23 10:00 Active 1 each MC BID Hydrochlorothiazide 25 mg [hydroDIURIL 25 MG] Med 01/10/23 10:00 Active 25 mg PO DAILY Losartan Potassium 50 mg [Cozaar 50 MG] Med 01/10/23 10:00 Active 50 mg PO DAILY Metformin HCl 500 mg [Glucophage 500 MG] Med 01/10/23 08:00 Discontinued 500 mg PO BIDWM Metformin HCl 500 mg [Glucophage 500 MG] Med 01/12/23 08:00 Active 500 mg PO BIDWM Metronidazole 500 mg Premix [Flagyl 500 mg Ivpb] Med 01/09/23 22:00 Active 500 mg in 100 ml IV Q8HT NaCl 0.9% 1000 ml [Sodium Chloride 0.9% 1000 ML] 1,000 Med 01/09/23 18:30 Active ml IV 150 mls/hr Nitroglycerin 0.4 mg Tablet [Nitrostat 0.4 MG Tablet Med 01/10/23 07:32 Active ] 0.4 mg SL Q5MIN PRN MR X 3 PRN Pramipexole Di-HCl 0.5 mg [Mirapex 0.5 MG Tablet] Med 01/09/23 22:00 Active 0.5 mg PO BID Simvastatin 20Mg [Zocor 20Mg] Med 01/10/23 10:00 Active 40 mg PO DAILY Tamsulosin HCl 0.4 mg [Flomax 0.4 MG] Med 01/10/23 10:00 Active 0.8 mg PO DAILY Venlafaxine HCl ER 75 mg [Effexor XR 75 MG] Med 01/10/23 10:00 Active 150 mg PO DAILY Patient Care Notes (Last 24 hours) 01/10/23 12:56 Case Management Note by Kait Fuentes PATIENT VOICED THAT HE HAS TROUBLE AFFORDING HIS MEDICATIONS. HE REPORTS THERE ARE SEVERAL THAT HE DOES NOT TAKE D/T INABILITY TO AFFORD THEM. PATIENT COULD NOT GIVE ME A LIST ON ONES THAT HE IS NOT TAKING. HE REPORTS HE HAS INSURANCE COVERAGE BUT THEY ARE STILL TOO MUCH. HE REPORTS HE HAS TRIED TO GET MEDICAID TO HELP BUT HE MAKES TO MUCH FOR ASSISTANCE. INSURANCE NAVIGATOR AND [employer]S PHONE NUMBER PLACED IN DC INSTRUCTIONS AND PATIENT NOTIFIED HE COULD TRY TO TALK WITH THEM TO SEE IF THEY HAVE ANY RESOURCES FOR PATIENT. HE VERIFIED UNDERSTANDING. CALLED [facility]- PATIENT'S CURRENT RX FOR DC IS <$5. Initialized on 01/10/23 12:56 - END OF NOTE Code(s): K57.92 - DVTRCLI OF INTEST, PART UNSP, W/O PERF OR ABSCESS W/O BLEED (2) Abdominal pain Current Visit: Yes Status: Acute Qualifiers: Abdominal location: generalized Qualified Code(s): R10.84 - Generalized abdominal pain Code(s): R10.9 - UNSPECIFIED ABDOMINAL PAIN Hospital Summary - Hospital Course Hospital Course: Chief Complaint Diagnosis ACUTE DIVERTICULITIS Allergies Allergy/AdvReac Type Severity Reaction Status Date / Time penicillin G Allergy Mild Hives Verified 11/02/22 16:22 meperidine [From Demerol] AdvReac Mild Nausea and Verified 11/02/22 16:22 Vomiting Vital Signs (Last 24 hours) Temp Pulse Resp BP Pulse Ox 01/10/23 11:46 98.3 F 82 16 137/64 95 01/10/23 07:14 97.9 F 75 16 134/78 96 01/10/23 03:48 97.8 F 72 16 133/74 97 01/09/23 23:51 97.5 F 72 16 141/62 97 01/09/23 20:00 97.3 F 75 18 134/60 95 01/09/23 17:25 97.9 F 75 16 142/72 96 01/09/23 16:57 97.9 F 75 16 142/72 96 01/09/23 16:47 97.9 F 75 16 142/72 96 Home Medications Medication Instructions Recorded Confirmed Last Taken Type Citalopram Hydrobromide 20 mg* 40 mg PO DAILY 01/09/23 01/09/23 Unknown History [ceLEXa 20 MG] Metformin HCl 500 mg 500 mg PO BID 01/09/23 01/09/23 Unknown History [Glucophage 500 MG] Nitroglycerin 0.4 mg Tablet 0.4 mg SL Q5MIN PRN MR X 3 PRN 01/09/23 01/09/23 Unknown History [Nitrostat 0.4 MG Tablet] Pramipexole Di-HCl [Pramipexole 0.5 mg PO BID 01/09/23 01/09/23 Unknown History Dihydrochloride] Pravastatin Sodium 40 mg PO DAILY 01/09/23 01/09/23 Unknown History Tamsulosin HCl 0.4 mg [Flomax 0.8 mg PO DAILY 01/09/23 01/09/23 Unknown History 0.4 MG] Venlafaxine HCl [Venlafaxine HCl 150 mg PO DAILY 01/09/23 01/09/23 Unknown History ER] gemfibroziL [Gemfibrozil] 600 mg PO DAILY 01/09/23 01/09/23 Unknown History Metronidazole 500 mg [Flagyl 500 mg PO TID 5 Days #15 tablet 01/10/23 Unknown Rx 500 MG] Current Medications Generic Name Dose Route Start Last Admin Trade Name Freq PRN Reason Stop Dose Admin Amitriptyline HCl 25 mg 01/09/23 22:00 01/09/23 21:15 Amitriptyline Hcl 25 Mg Tablet PO 02/08/23 21:59 25 mg HS STEFANY Administration Aspirin 325 mg 01/10/23 10:00 01/10/23 10:29 Aspirin 325 Mg Tablet.Ec PO 02/09/23 09:59 325 mg DAILY STEFANY Administration Carvedilol 12.5 mg 01/09/23 22:00 01/10/23 10:28 Carvedilol 12.5 Mg Tablet PO 02/08/23 21:59 12.5 mg BID STEFANY Administration Citalopram Hydrobromide 40 mg 01/10/23 10:00 01/10/23 10:29 Citalopram Hydrobromide 20 Mg Tablet PO 02/09/23 09:59 40 mg DAILY STEFANY Administration Finasteride 5 mg 01/10/23 10:00 01/10/23 10:30 Finasteride 5 Mg Tablet PO 02/09/23 09:59 5 mg DAILY STEFANY Administration Gemfibrozil 600 mg 01/10/23 10:00 01/10/23 10:30 Gemfibrozil 600 Mg Tablet PO 02/09/23 09:59 600 mg DAILY STEFANY Administration Hydrochlorothiazide 25 mg 01/10/23 10:00 01/10/23 10:29 Hydrochlorothiazide 25 Mg Tablet PO 02/09/23 09:59 25 mg DAILY STEFANY Administration Sodium Chloride 1,000 mls @ 150 mls/hr 01/09/23 18:30 01/10/23 03:57 Sodium Chloride 0.9% 1000 Ml IV 02/08/23 18:29 150 mls/hr .Q6H40M STEFANY Administration Metronidazole 500 mg in 100 mls @ 200 mls/hr 01/09/23 22:00 01/10/23 05:29 Flagyl 500 Mg Ivpb IV 02/08/23 21:59 200 mls/hr Q8HT STEFANY Administration Losartan Potassium 50 mg 01/10/23 10:00 01/10/23 10:28 Losartan Potassium 50 Mg Tablet PO 02/09/23 09:59 50 mg DAILY STEFANY Administration Metformin HCl 500 mg 01/12/23 08:00 Metformin Hcl 500 Mg Tablet PO 02/11/23 07:59 BIDWM STEFANY Nitroglycerin 0.4 mg 01/10/23 07:32 Nitroglycerin 0.4 Mg Tablet Bottle SL 02/09/23 07:31 Q5MIN PRN MR X 3 PRN CP Non-Formulary Medication 1 each 01/10/23 10:00 01/10/23 10:30 Hold Metformin Products For 48hrs 01/11/23 22:01 1 each BID STEFANY Administration Pramipexole Dihydrochloride 0.5 mg 01/09/23 22:00 01/10/23 10:29 Pramipexole Di-Hcl 0.5 Mg Tab PO 02/08/23 21:59 0.5 mg BID STEFANY Administration Simvastatin 40 mg 01/10/23 10:00 01/10/23 10:29 Simvastatin 20 Mg Tablet PO 02/09/23 09:59 40 mg DAILY STEFANY Administration Tamsulosin HCl 0.8 mg 01/10/23 10:00 01/10/23 10:29 Tamsulosin Hcl 0.4 Mg Cap PO 02/09/23 09:59 0.8 mg DAILY STEFANY Administration Venlafaxine HCl 150 mg 01/10/23 10:00 01/10/23 10:28 Venlafaxine Hcl 75 Mg Extended Release Capsule PO 02/09/23 09:59 150 mg DAILY STEFANY Administration Discontinued Medications Generic Name Dose Route Start Last Admin Trade Name Freq PRN Reason Stop Dose Admin Metformin HCl 500 mg 01/10/23 08:00 01/10/23 10:38 Metformin Hcl 500 Mg Tablet PO 02/09/23 07:59 Not Given BIDWM STEFANY Intake & Output (Last 24 hours) 01/08/23 01/09/23 01/10/23 01/11/23 11:59 11:59 11:59 11:59 Intake Total 2930 480 Output Total 3150 350 Balance -220 130 Weight 78.7 kg Laboratory Results (Last 24 hours) 01/09/23 01/09/23 01/09/23 17:25 17:20 17:20 WBC 8.8 RBC 3.69 L Hgb 10.8 L Hct 32.7 L MCV 88.6 MCH 29.3 MCHC 33.0 RDW 13.2 Plt Count 260 MPV 9.6 Gran % 59.3 Immature Gran % (Auto) 0.8 H Nucleat RBC Rel Count 0.0 Eos # (Auto) 0.28 Immature Gran # (Auto) 0.07 H Absolute Lymphs (auto) 2.56 Absolute Monos (auto) 0.56 Absolute Nucleated RBC 0.00 Lymphocytes % 29.2 Monocytes % 6.4 Eosinophils % 3.2 Basophils % 1.1 Absolute Granulocytes 5.19 Basophils # 0.10 Sodium 136 L Potassium 3.7 Chloride 100 Carbon Dioxide 27 Anion Gap 13.8 BUN 17 Creatinine 0.69 Estimated GFR > 60.0 Glucose 97 Calcium 8.9 Total Bilirubin 0.50 AST 65 H ALT 45 Alkaline Phosphatase 110 Serum Total Protein 6.3 Albumin 3.5 Influenza Type A Ag NEGATIVE Influenza Type B Ag NEGATIVE RSV (PCR) NEGATIVE SARS-CoV-2 (PCR) NEGATIVE Orders (Last 24 hours) Category Date Time Status Miscellaneous Nursing Order ROUTINE Care 01/09/23 18:19 Active Miscellaneous Nursing Order ROUTINE Care 01/09/23 18:[address] in Observation ROUTINE Care 01/09/23 18:16 Active Cardio-Pulmonary Rehab .as ordered Cons 01/09/23 17:02 Active [place] Diet Diet 01/10/23 Breakfast Completed Clear Liquid Diet 01/09/23 Dinner Completed House Regular Diet Diet 01/10/23 Lunch Active NPO Diet 01/09/23 19:01 Completed Nutritional Admission Screen ONCE Diet 01/09/23 17:34 Active ABDOMEN AND PELVIS W CONTRAST [CT] Urgent Exams 01/09/23 19:00 Completed CBC W DIFF Stat Lab 01/09/23 17:20 Completed CMP Stat Lab 01/09/23 17:20 Completed COVID/FLU/RSV Panel Stat Lab 01/09/23 17:25 Completed Amitriptyline HCl 25 mg [Amitriptyline 25 mg Tablet] Med 01/09/23 22:00 Active 25 mg PO HS Aspirin EC 325 mg [Ecotrin 325 MG] Med 01/10/23 10:00 Active 325 mg PO DAILY Carvedilol 12.5 mg [Coreg 12.5 mg] Med 01/09/23 22:00 Active 12.5 mg PO BID Citalopram Hydrobromide 20 mg* [ceLEXa 20 MG] Med 01/10/23 10:00 Active 40 mg PO DAILY Finasteride 5 mg [Proscar 5 MG] Med 01/10/23 10:00 Active 5 mg PO DAILY Gemfibrozil [Lopid] Med 01/10/23 10:00 Active 600 mg PO DAILY Hold Metformin [Hold Metformin Products For 48 Hours] Med 01/10/23 10:00 Active 1 each MC BID Hydrochlorothiazide 25 mg [hydroDIURIL 25 MG] Med 01/10/23 10:00 Active 25 mg PO DAILY Losartan Potassium 50 mg [Cozaar 50 MG] Med 01/10/23 10:00 Active 50 mg PO DAILY Metformin HCl 500 mg [Glucophage 500 MG] Med 01/10/23 08:00 Discontinued 500 mg PO BIDWM Metformin HCl 500 mg [Glucophage 500 MG] Med 01/12/23 08:00 Active 500 mg PO BIDWM Metronidazole 500 mg Premix [Flagyl 500 mg Ivpb] Med 01/09/23 22:00 Active 500 mg in 100 ml IV Q8HT NaCl 0.9% 1000 ml [Sodium Chloride 0.9% 1000 ML] 1,000 Med 01/09/23 18:30 Active ml IV 150 mls/hr Nitroglycerin 0.4 mg Tablet [Nitrostat 0.4 MG Tablet Med 01/10/23 07:32 Active ] 0.4 mg SL Q5MIN PRN MR X 3 PRN Pramipexole Di-HCl 0.5 mg [Mirapex 0.5 MG Tablet] Med 01/09/23 22:00 Active 0.5 mg PO BID Simvastatin 20Mg [Zocor 20Mg] Med 01/10/23 10:00 Active 40 mg PO DAILY Tamsulosin HCl 0.4 mg [Flomax 0.4 MG] Med 01/10/23 10:00 Active 0.8 mg PO DAILY Venlafaxine HCl ER 75 mg [Effexor XR 75 MG] Med 01/10/23 10:00 Active 150 mg PO DAILY Patient Care Notes (Last 24 hours) 01/10/23 12:56 Case Management Note by Kait Fuentes PATIENT VOICED THAT HE HAS TROUBLE AFFORDING HIS MEDICATIONS. HE REPORTS THERE ARE SEVERAL THAT HE DOES NOT TAKE D/T INABILITY TO AFFORD THEM. PATIENT COULD NOT GIVE ME A LIST ON ONES THAT HE IS NOT TAKING. HE REPORTS HE HAS INSURANCE COVERAGE BUT THEY ARE STILL TOO MUCH. HE REPORTS HE HAS TRIED TO GET MEDICAID TO HELP BUT HE MAKES TO MUCH FOR ASSISTANCE. INSURANCE NAVIGATOR AND ACO'S PHONE NUMBER PLACED IN DC INSTRUCTIONS AND PATIENT NOTIFIED HE COULD TRY TO TALK WITH THEM TO SEE IF THEY HAVE ANY RESOURCES FOR PATIENT. HE VERIFIED UNDERSTANDING. CALLED [facility]- PATIENT'S CURRENT RX FOR DC IS <$5. Initialized on 01/10/23 12:56 - END OF NOTE - Vitals & Intake/Output Vital Signs: Vital Signs Temperature 98.3 F 01/10/23 11:46 Pulse Rate 82 01/10/23 11:46 Respiratory Rate 16 01/10/23 11:46 Blood Pressure 137/64 01/10/23 11:46 O2 Sat by Pulse Oximetry 95 01/10/23 11:46 Intake & Output: Intake & Output 01/08/23 01/09/23 01/10/23 01/11/23 11:59 11:59 11:59 11:59 Intake Total 2930 Output Total 3150 Balance -220 Weight 78.7 kg - Lab Result Diagrams: 01/09/23 17:20 01/09/23 17:20 Lab Results-Last 24 Hrs: Lab Results-Last 24 Hours 01/09/23 01/09/23 01/09/23 Range/Units 17:20 17:20 17:25 WBC 8.8 (4.0-10.5) x10^3/uL RBC 3.69 L (4.1-5.6) x10^6/uL Hgb 10.8 L (12.5-18.0) g/dL Hct 32.7 L (42-50) % MCV 88.6 (78-100) fL MCH 29.3 (26-32) pg MCHC 33.0 (32-36) g/dL RDW 13.2 (11.5-14.0) % Plt Count 260 (150-450) x10^3/uL MPV 9.6 (7.5-11.0) fL Gran % 59.3 (36.0-66.0) % Immature Gran % (Auto) 0.8 H (0.00-0.4) % Nucleat RBC Rel Count 0.0 (0.00-0.1) % Eos # (Auto) 0.28 (0-0.5) x10^3/uL Immature Gran # (Auto) 0.07 H (0.00-0.03) x10^3u/L Absolute Lymphs (auto) 2.56 (1.0-4.6) x10^3/uL Absolute Monos (auto) 0.56 (0.0-1.3) x10^3/uL Absolute Nucleated RBC 0.00 (0.00-0.01) x10^3u/L Lymphocytes % 29.2 (24.0-44.0) % Monocytes % 6.4 (0.0-12.0) % Eosinophils % 3.2 (0.00-5.0) % Basophils % 1.1 (0.0-0.4) % Absolute Granulocytes 5.19 (1.4-6.9) x10^3/uL Basophils # 0.10 (0-0.4) x10^3/uL Sodium 136 L (137-145) mmol/L Potassium 3.7 (3.5-5.1) mmol/L Chloride 100 (98-107) mmol/L Carbon Dioxide 27 (22-30) mmol/L Anion Gap 13.8 (5-15) MEQ/L BUN 17 (9-20) mg/dL Creatinine 0.69 (0.66-1.25) mg/dL Estimated GFR > 60.0 ML/MIN Glucose 97 (74-106) mg/dL Calcium 8.9 (8.4-10.2) mg/dL Total Bilirubin 0.50 (0.2-1.3) mg/dL AST 65 H (17-59) U/L ALT 45 (0-50) U/L Alkaline Phosphatase 110 (38-126) U/L Serum Total Protein 6.3 (6.3-8.2) g/dL Albumin 3.5 (3.5-5.0) g/dL Influenza Type A Ag NEGATIVE (NEGATIVE) Influenza Type B Ag NEGATIVE (NEGATIVE) RSV (PCR) NEGATIVE (NEGATIVE) SARS-CoV-2 (PCR) NEGATIVE (NEGATIVE) - Radiology Exams Ordered Rad Exams-Entire Visit: Radiology Procedures Category Date Time Status ABDOMEN AND PELVIS W CONTRAST [CT] Urgent Exams 01/09/23 19:00 Completed - Discharge Discharge Date: 01/10/23 Disposition: Home, Self-Care Condition: Stable Prescriptions: New Metronidazole 500 mg [Flagyl 500 MG] 500 mg PO TID 5 Days #15 tablet Continue Finasteride 5 mg [Proscar 5 MG] 5 mg PO DAILY Losartan Potassium 50 mg PO DAILY Hydrochlorothiazide 25 mg [hydroDIURIL 25 MG] 25 mg PO DAILY Amitriptyline HCl 10 mg [Elavil 10 mg] 25 mg PO HS Aspirin EC 325 mg [Ecotrin 325 MG] 325 mg PO DAILY Carvedilol 12.5 mg [Coreg 12.5 mg] 12.5 mg PO BID Tamsulosin HCl 0.4 mg [Flomax 0.4 MG] 0.8 mg PO DAILY Pravastatin Sodium 40 mg PO DAILY Pramipexole Di-HCl [Pramipexole Dihydrochloride] 0.5 mg PO BID Citalopram Hydrobromide 20 mg* [ceLEXa 20 MG] 40 mg PO DAILY gemfibroziL [Gemfibrozil] 600 mg PO DAILY Venlafaxine HCl [Venlafaxine HCl ER] 150 mg PO DAILY Metformin HCl 500 mg [Glucophage 500 MG] 500 mg PO BID Nitroglycerin 0.4 mg Tablet [Nitrostat 0.4 MG Tablet] 0.4 mg SL Q5MIN PRN MR X 3 PRN PRN Reason: CP Instructions: Diarrhea in Adolescents and Adults Additional Instructions: HOLD METFORMIN UNTIL AFTER 8:00 PM ON 01/11/23 THE INSURANCE NAVIGATOR'S PHONE NUMBER TO DISCUSS MEDICATION ASSISTANCE PROGRAMS IS [phone]. YOU COULD ALSO CHECK WITH OUR ACO DEPARTMENT TO SEE IF THEY ARE ABLE TO GIVE YOU ANY RESOURCES. THEIR PHONE NUMBER IS [phone] Follow up with: WILLI DUMAS MD [Primary Care Provider] - 01/18/23 1:30 pm ([facility]) Forms: Work/School Release Form
[2023-01-12] MEDS ORDERED: Glucophage 500 MG PO SCH (08:00)
== END 2023-01-10 13:24 | disposition home or self-care (01) ==
LOC: MED SURG 16:35
PROVIDERS: ADMIT General Practice; ATTEND General Practice
DX: K57.92 Diverticulitis of intestine, part unspecified, without perforation or abscess without bleeding (principal); R10.84 Generalized abdominal pain; E11.9 Type 2 diabetes mellitus without complications; I10 Essential (primary) hypertension; E78.5 Hyperlipidemia, unspecified; Z79.899 Other long term (current) drug therapy; Z20.828 Contact with and (suspected) exposure to other viral communicable diseases
CPT/HCPCS: 0241U; 36415; 74177; 80053; 85025; G0378; A9270-GY

== ENCOUNTER 2023-05-07 13:40 | Emergency (ER) | payer MEDICARE ==
--- NOTE | 2023-05-07 15:32 | ERPHSYRPT ---
- History of Present Illness Source: patient Exam Limitations: no limitations Patient Subjective Stated Complaint: Pt stated that he fell on when he went out to get the mail and his left ankle gave out and he the back of his head on concrete Triage Nursing Assessment: Pt brought self to the ER, vitals wnl, rates pain as 9/10, denies blood thinners, denies LOC, states that he wants to sleep a lot, back of head swollen, no laceration Physician History: 72 yo WM fell [place] post office 4 days ago and now complain of a headache. Pain is 9/10. He denies LOC/C,t, and L-spine pain/chest pain/abdominal pain/Hip pain/Lower extremity pain/UE pain/focal weakness. Anticoagulants are denied. He has had some nausea/mild blurred vision/no vomiting. Occurred: days ago (4 days ago) Severity: moderate Head Injury Location: occipital Method of Injury: fell Loss of Consciousness: no loss of consciousness, dazed Allergies/Adverse Reactions: penicillin G Allergy (Mild, Verified 05/07/23 14:12) Hives meperidine [From Demerol] Adverse Reaction (Mild, Verified 05/07/23 14:12) Nausea and Vomiting Home Medications: Finasteride 5 mg [Proscar 5 MG] 5 mg PO DAILY 02/01/20 [History] Hydrochlorothiazide 25 mg [hydroDIURIL 25 MG] 25 mg PO DAILY 02/01/20 [History] Losartan Potassium 50 mg PO DAILY 02/01/20 [History] Amitriptyline HCl 10 mg [Elavil 10 mg] 25 mg PO HS 12/08/20 [History] Aspirin EC 325 mg [Ecotrin 325 MG] 325 mg PO DAILY 12/08/20 [History] Carvedilol 12.5 mg [Coreg 12.5 mg] 12.5 mg PO BID 12/08/20 [History] Citalopram Hydrobromide 20 mg* [ceLEXa 20 MG] 40 mg PO DAILY 01/09/23 [History] Metformin HCl 500 mg [Glucophage 500 MG] 500 mg PO DAILY 01/09/23 [History] Nitroglycerin 0.4 mg Tablet [Nitrostat 0.4 MG Tablet] 0.4 mg SL Q5MIN PRN MR X 3 PRN 01/09/23 [History] Pramipexole Di-HCl [Pramipexole Dihydrochloride] 0.5 mg PO BID 01/09/23 [History] Pravastatin Sodium 40 mg PO DAILY 01/09/23 [History] Tamsulosin HCl 0.4 mg [Flomax 0.4 MG] 0.8 mg PO DAILY 01/09/23 [History] Venlafaxine HCl [Venlafaxine HCl ER] 150 mg PO DAILY 01/09/23 [History] gemfibroziL [Gemfibrozil] 600 mg PO DAILY 01/09/23 [History] Budesonide/Formoterol Fumarate [Budesonide-Formoterol 160-4.5] 0 gm IH UD 05/07/23 [History] Oxycodone HCl [Oxycodone HCl ER] 10 mg PO BID PRN 05/07/23 [History] Temazepam 30 mg PO HS 05/07/23 [History] Hx Tetanus, Diphtheria Vaccination/Date Given: Yes Hx Influenza Vaccination/Date Given: Yes Hx Pneumococcal Vaccination/Date Given: Yes Travel Risk - International Travel Have you traveled outside of the country in past 3 weeks: No - Coronavirus Screening Are you exhibiting any of the following symptoms?: No Close contact with a COVID-19 positive Pt in past 14-21 Days: No - Vaccine Status Have you recieved a Covid-19 vaccination: Yes 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: Moderna - Vaccination Dates Date of 2cond Vaccination (if applicable): unknown - Review of Systems Constitutional: No Symptoms Eyes: No Symptoms Ears, Nose, & Throat: No Symptoms Respiratory: No Symptoms Cardiac: No Symptoms Abdominal/Gastrointestinal: No Symptoms Genitourinary Symptoms: No Symptoms Musculoskeletal: No Symptoms Skin: No Symptoms Neurological: No Symptoms, Headache Psychological: No Symptoms Endocrine: No Symptoms Hematologic/Lymphatic: No Symptoms Immunological/Allergic: No Symptoms - Past Medical History Pertinent Past Medical History: Yes Neurological History: No Pertinent History, TIA ENT History: Cataracts Cardiac History: Angina, High Cholesterol, Hypertension, Myocardial Infarction (RI) Respiratory History: COPD, Emphysema, Sleep Apnea Endocrine Medical History: Diabetes Type II, Other Musculoskeletal History: Arthritis, Fractures GI Medical History: GERD History: No Pertinent History Psycho-Social History: Bipolar, Depression Male Reproductive Disorders: No Pertinent History Other Medical History: . - Past Surgical History Past Surgical History: Yes Neuro Surgical History: No Pertinent History Cardiac: Cardiac Catheterization, Cardiac Stent Respiratory: No Pertinent History Gastrointestinal: Appendectomy, Other Genitourinary: No Pertinent History Musculoskeletal: Orthopedic Surgery Male Surgical History: Other Other Surgical History: HYDROCELE REPAIR, spinal surgey, hip replacement x2, bilateral hand, total hip, GJ VAGOTOMY 1970, HEMORRHOIDECTOMY - Social History Smoking Status: Never smoker Exposure to second hand smoke: No Drug Use: none Patient Lives Alone: No - Nursing Vital Signs Nursing Vital Signs: Initial Vital Signs Temperature 96.5 F 05/07/23 14:02 Pulse Rate 77 05/07/23 14:02 Blood Pressure 135/69 05/07/23 14:02 O2 Sat by Pulse Oximetry 97 05/07/23 14:02 Pain Scale Pain Intensity 7 WNL - Soper Coma Score Best Eye Response (Deshawn): (4) open spontaneously Best Verbal Response (Deshawn): (5) oriented Best Motor Response (Soper): (6) obeys commands Deshawn Total: 15 - Physical Exam General Appearance: no apparent distress Head Injury: tenderness (Occiput TTP w mild edema) ENT Exam: airway nml, No evidence of ENT injury, No clear fluid (ears), No clear fluid (nose) Neck Exam: supple, trachea midline, full range of motion, other (C-spine NTTP) Cardiovascular/Respiratory Exam: chest non-tender, normal breath sounds, regular rate/rhythm, heart sounds normal Gastrointestinal/Abdominal Exam: soft, non tender, no distention Back Exam: normal inspection, normal range of motion, No CVA tenderness, No vertebral tenderness (No T or L-spine TTP) Extremity Exam: non-tender, normal range of motion, normal inspection, normal capillary refill Mental Status Exam: alert, 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, 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 Exam: normal hearing, normal speech, PERRL, No abnormal eye position, No abnormal gag reflex Coordination/Gait Exam: normal finger to nose, normal gait, normal cerebellar function, negative Romberg's sign Motor/Sensory Exam: no motor deficit, no sensory deficit, no pronator drift, negative Babinski's sign DTR Exam: bicep (R): 2+, bicep (L): 2+ Skin Exam: normal color, warm, dry Lymphatic Exam: No adenopathy SpO2 Interpretation: normal SpO2: 97 O2 Delivery: Room Air - Course Nursing assessment & vital signs reviewed: Yes - CT Exams Head CT Interpretation: Discussed w/radiologist (Subacute infarct L basal ganglia), Tele-radiologist Report Ordered Tests: Active Orders 24 hr Category Date Time Status HEAD WITHOUT CONTRAST [CT] Stat Exams 05/07/23 14:50 Completed Medication Summary Discontinued Medications Generic Name Dose Route Start Last Admin Trade Name Toby PRN Reason Stop Dose Admin Ketorolac Tromethamine 15 mg 05/07/23 16:15 05/07/23 16:23 Ketorolac Tromethamine 30 Mg/Ml Inj IM 05/07/23 16:16 15 mg STAT ONE Administration Ketorolac Tromethamine Confirm 05/07/23 16:20 Ketorolac Tromethamine 30 Mg/Ml Inj Administered 05/07/23 16:21 Dose 30 mg .ROUTE .STK-MED ONE - Progress Progress Note: 05/07/23 16:17 Nursing note and vital signs reviewed No food or housing insecurities noted CT results reviewed and shared w pt Serial neuro exams WNL/No focal weakness Pt refused admit and teleneuro consult and just wants to be discharged. Risks explained to pt, including worsening of infarct and disability No evidence of acute bleed/skull fx Unable to obtain MRI of brain 05/07/23 16:24 Counseled pt/family regarding: diagnosis, need for follow-up, rad results Medical Desision Making - Diagnostic Testing Radiological Interpretation: Reviewed by me, Teleradiologist Report - Departure Departure Disposition: Home Clinical Impression: Closed head injury, Thromboembolic stroke Condition: Stable Critical Care Time: No Referrals: TRACEY HOSKINS MD [Primary Care Provider] - Follow up/PCP as directed Instructions: Stroke (DC), Head Injury in Adults (DC), Concussion, Adult ED Additional Instructions: Continue full strength aspirin daily Follow up with your family MD tomorrow Return to ER for worsening of condition
--- NOTE | 2023-05-07 16:05 | XRAY ---
CLINICAL HISTORY:Fall. COMPARISON:None. TECHNIQUES:Axial non-contrast CT scan of the brain was performed from the skull base to the high parietal region. FINDINGS: A fairly defined hypodense area is seen at the left basal ganglionic region, displaying 15 HU with no related perifocal edema or mass effect. Accentuated hypodensity of the cerebral white matter. Jha-white matter differentiation is maintained. No midline shifts. No intracerebral or extra axial hematoma. Prominent extra-axial CSF spaces including cortical sulci, fissures, and basal cisterns. Mildly dilated cerebral ventricles with no deformity. Normal CT appearance of the posterior fossa structures namely the cerebellar hemispheres, brainstem, and cerebellar peduncles. The pituitary gland, the pineal gland, and the optic chiasm is unremarkable. The osseous structures in the skull base are unremarkable. No definite calvarium fractures. Evidence of maxillary and ethmoidal sinusitis. IMPRESSION: A hypodense area at the left basal ganglionic representing subacute ischemic insult. MRI with DWI is recommended. 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 Age-related brain involutional changes. [facility] ER was called at [phone] at 2:50 PM NUCLEAR OPERATIONS SPECIALIST, 05/07/2023 and results were verbally communicated to Fei Alcantara. Electronically Signed by: Latha Crowe MD. (05/07/2023 14:54:42 NUCLEAR OPERATIONS SPECIALIST)
[2023-05-07] MEDS ORDERED: TORAdol 30 mg Injection IM ONE (16:15)
[2023-05-07] MEDS ORDERED: TORAdol 30 mg Injection ONE (16:20)
[2023-05-07 16:29] VITALS: BP 134/77; PULSE 71
[2023-05-07 17:51] VITALS: O2SAT 97
== END 2023-05-07 16:43 | disposition home or self-care (01) ==
LOC: ED 13:40
DX: S09.90XA Unspecified injury of head, initial encounter (principal); W19.XXXA Unspecified fall, initial encounter; Y92.242 Post office as the place of occurrence of the external cause; I63.49 Cerebral infarction due to embolism of other cerebral artery; R51.9 Headache, unspecified; R11.0 Nausea; E78.5 Hyperlipidemia, unspecified; I10 Essential (primary) hypertension; E11.9 Type 2 diabetes mellitus without complications; Z79.84 Long term (current) use of oral hypoglycemic drugs; Z79.891 Long term (current) use of opiate analgesic; Z79.899 Other long term (current) drug therapy
CPT/HCPCS: 70450; 96372; 99283; J1885

== ENCOUNTER 2023-06-26 22:29 | Observation (INO) | payer MEDICARE ==
--- NOTE | 2023-06-26 23:00 | ERPHSYRPT ---
- History of Present Illness Time Seen by Provider: 06/26/23 22:58 Historian: patient Exam Limitations: no limitations Patient Subjective Stated Complaint: pt states "I have been short of breath off and on for a while." Triage Nursing Assessment: pt ambulatory to bed by self with steady gait, A&O x3, skin pwd, pt c/o intermittent shortness of breath x1 month, pt did paint a room in his house today and they made him feel more short of breath, pt is a former smoker, pt denies any pain at this time, pt afebrile, pt denies cough Physician History: Patient is a 72-year-old male with a history of cardiac stent, [place], COPD, diabetes presents to our ED with a 1 month history of intermittent progressive shortness of breath now coupled with chest pain. Patient took a 325 mg aspirin this morning. Patient also took a nitro sublingual today due to chest pain. Symptoms are not improving. Symptoms are mild to moderate in intensity. No specific worsening or improving factors. Patient voices no other complaints or concerns at this time. Portions of this note were created with voice recognition technology. There may be grammatical, spelling, punctuation or sound alike errors Timing/Duration: today Activities at Onset: none Quality: aching Location: substernal Chest Pain Radiation: no radiation Severity of Pain-Max: moderate Severity of Pain-Current: mild Modifying Factors: Improves With: nothing Associated Symptoms: shortness of breath Prior Chest Pain/Cardiac Workup: cardiac cath Nitro Today/Relief: 0.4 mg x 1 Aspirin Treatment Today: 325 mg x 1 Allergies/Adverse Reactions: penicillin G Allergy (Mild, Verified 06/26/23 22:32) Hives meperidine [From Demerol] Adverse Reaction (Mild, Verified 06/26/23 22:32) Nausea and Vomiting Home Medications: Finasteride 5 mg [Proscar 5 MG] 5 mg PO DAILY 02/01/20 [History] Hydrochlorothiazide 25 mg [hydroDIURIL 25 MG] 25 mg PO DAILY 02/01/20 [History] Losartan Potassium 50 mg PO DAILY 02/01/20 [History] Amitriptyline HCl 10 mg [Elavil 10 mg] 25 mg PO HS 12/08/20 [History] Aspirin EC 325 mg [Ecotrin 325 MG] 325 mg PO DAILY 12/08/20 [History] Carvedilol 12.5 mg [Coreg 12.5 mg] 12.5 mg PO BID 12/08/20 [History] Citalopram Hydrobromide 20 mg* [ceLEXa 20 MG] 40 mg PO DAILY 01/09/23 [History] Metformin HCl 500 mg [Glucophage 500 MG] 500 mg PO DAILY 01/09/23 [Histor y] Nitroglycerin 0.4 mg Tablet [Nitrostat 0.4 MG Tablet] 0.4 mg SL Q5MIN PRN MR X 3 PRN 01/09/23 [History] Pramipexole Di-HCl [Pramipexole Dihydrochloride] 0.5 mg PO BID 01/09/23 [History] Pravastatin Sodium 40 mg PO DAILY 01/09/23 [History] Tamsulosin HCl 0.4 mg [Flomax 0.4 MG] 0.4 mg PO DAILY 01/09/23 [History] Venlafaxine HCl [Venlafaxine HCl ER] 150 mg PO DAILY 01/09/23 [History] gemfibroziL [Gemfibrozil] 600 mg PO DAILY 01/09/23 [History] Budesonide/Formoterol Fumarate [Budesonide-Formoterol 160-4.5] 0 gm IH UD 05/07/23 [History] Oxycodone HCl [Oxycodone HCl ER] 10 mg PO BID PRN PRN 05/07/23 [History] Temazepam 30 mg PO HS 05/07/23 [History] Olanzapine [Olanzapine Odt] 10 mg PO HS 06/26/23 [History] Omeprazole 40 mg PO DAILY 06/26/23 [History] Pramipexole Di-HCl [Pramipexole Dihydrochloride] 0.5 mg PO BID 06/26/23 [History] Saw/Vit E/Sod Mariella/Lyc/Beta/Pyg [Prostate Health Caplet] 1 tab PO DAILY 06/26/23 [History] Vit C/E/Zn/Coppr/Lutein/Zeaxan [Preservision Areds 2 Chew Tab] 2 tab PO BID 06/26/23 [History] Hx Tetanus, Diphtheria Vaccination/Date Given: Yes Hx Influenza Vaccination/Date Given: Yes Hx Pneumococcal Vaccination/Date Given: Yes Travel Risk - International Travel Have you traveled outside of the country in past 3 weeks: No - Coronavirus Screening Are you exhibiting any of the following symptoms?: No Close contact with a COVID-19 positive Pt in past 14-21 Days: No - Vaccine Status Have you recieved a Covid-19 vaccination: Yes Senior Consultant: Moderna - Vaccination Dates Date of 2cond Vaccination (if applicable): unknown - Review of Systems Constitutional: No Symptoms, No Fever, No Chills Eyes: No Symptoms Ears, Nose, & Throat: No Symptoms Respiratory: No Symptoms, No Cough, No Dyspnea Cardiac: No Symptoms, No Chest Pain, No Edema, No Syncope Abdominal/Gastrointestinal: No Symptoms, No Abdominal Pain, No Nausea, No Vomiting, No Diarrhea Genitourinary Symptoms: No Symptoms, No Dysuria Musculoskeletal: No Symptoms, No Back Pain, No Neck Pain Skin: No Symptoms, No Rash Neurological: No Symptoms, No Dizziness, No Focal Weakness, No Sensory Changes Psychological: No Symptoms Endocrine: No Symptoms All Other Systems: Reviewed and Negative - Past Medical History Pertinent Past Medical History: Yes Neurological History: No Pertinent History, TIA ENT History: Cataracts Cardiac History: Angina, High Cholesterol, Hypertension, Myocardial Infarction ([place]) Respiratory History: COPD, Emphysema, Sleep Apnea Endocrine Medical History: Diabetes Type II, Other Musculoskeletal History: Arthritis, Fractures GI Medical History: GERD History: No Pertinent History Psycho-Social History: Bipolar, Depression Male Reproductive Disorders: No Pertinent History Other Medical History: . - Past Surgical History Past Surgical History: Yes Neuro Surgical History: No Pertinent History Cardiac: Cardiac Catheterization, Cardiac Stent Respiratory: No Pertinent History Gastrointestinal: Appendectomy, Other Genitourinary: No Pertinent History Musculoskeletal: Orthopedic Surgery Male Surgical History: Other Other Surgical History: HYDROCELE REPAIR, spinal surgey, hip replacement x2, bilateral hand, total hip, GJ VAGOTOMY 1970, HEMORRHOIDECTOMY - Social History Smoking Status: Former smoker Exposure to second hand smoke: No Drug Use: none Patient Lives Alone: No - Nursing Vital Signs Nursing Vital Signs: Initial Vital Signs Temperature 98.0 F 06/26/23 22:33 Pulse Rate 80 06/26/23 22:33 Respiratory Rate 16 06/26/23 22:33 Blood Pressure 149/72 06/26/23 22:33 O2 Sat by Pulse Oximetry 99 06/26/23 22:33 Pain Scale Pain Intensity 0 - Physical Exam General Appearance: no apparent distress, alert Eye Exam: PERRL/EOMI, eyes nml inspection Ears, Nose, Throat Exam: normal ENT inspection, moist mucous membranes Neck Exam: normal inspection, non-tender, supple, full range of motion Respiratory Exam: lungs clear, airway intact, wheezing, other (diminished breath sounds), No respiratory distress Cardiovascular Exam: regular rate/rhythm, normal heart sounds Gastrointestinal/Abdomen Exam: soft, No tenderness, No mass Back Exam: normal inspection, No CVA tenderness, No vertebral tenderness Extremity Exam: normal inspection, normal range of motion Neurologic Exam: alert, 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, cooperative, normal mood/affect, sensation nml, No motor deficits Skin Exam: normal color, warm, dry Lymphatic Exam: adenopathy SpO2 Interpretation: normal SpO2: 99 O2 Delivery: Room Air - Course Nursing assessment & vital signs reviewed: Yes EKG Interpreted by Me: RATE (78), Sinus Rhythm, NORMAL AXIS, NORMAL INTERVALS - Radiology Exams Chest X-ray Interpretation: Interpreted by me (No acute findings) Ordered Tests: Active Orders 24 hr Category Date Time Status Bedrest ROUTINE Activity 06/27/23 00:03 Ordered Call Admit Doctor for Orders ON ADMISSION Care 06/27/23 00:02 Ordered Education Assistant STAT Care 06/26/23 22:55 Active Code Status Order ROUTINE Care 06/27/23 00:02 Ordered EKG-ER Only STAT Care 06/26/23 22:54 Active IV Insertion STAT Care 06/26/23 22:54 Active Neuro Checks Q4H Care 06/27/23 00:[address] in Observation ROUTINE Care 06/27/23 00:02 Ordered Pulse Oximetry (ED) STAT Care 06/26/23 22:54 Active Telemetry q6h Care 06/27/23 00:02 Ordered Consistent Carbohydrate Diet 1800 Calorie Diet 06/27/23 Breakfast Ordered CHEST 1 VIEW (PORTABLE) Stat Exams 06/26/23 22:55 Taken BLOOD CULTURE Stat Lab 06/26/23 23:47 Ordered CBC W DIFF Stat Lab 06/26/23 23:00 Completed CMP Stat Lab 06/26/23 23:00 Completed NT PRO BNPII Stat Lab 06/26/23 23:00 Completed TROPONIN Q4H Lab 06/26/23 23:00 Completed TROPONIN Q4H Lab 06/27/23 03:00 Ordered TROPONIN Q4H Lab 06/27/23 07:00 Ordered Pulse Oximetry CONTINUOUS RT 06/27/23 00:03 Ordered Respiratory Therapy Assessment DAILY RT 06/26/23 23:53 Active Medication Summary Generic Name Dose Route Start Last Admin Trade Name Freq PRN Reason Stop Dose Admin Ceftriaxone Sodium/Dextrose 2 g in 50 mls @ 100 mls/hr 06/27/23 00:04 06/27/23 00:08 Rocephin 2 Gm-D5w 50ml Bag IV 06/27/23 00:33 100 mls/hr STAT STA 100 mls/hr Administration Azithromycin 500 mg in 250 mls @ 250 mls/hr 06/27/23 00:04 Zithromax 500 Mg/ 250 Ml Nacl Premix IV 06/27/23 01:03 STAT STA Discontinued Medications Generic Name Dose Route Start Last Admin Trade Name Freq PRN Reason Stop Dose Admin Albuterol/Ipratropium 3 ml 06/26/23 23:47 06/26/23 23:58 Ipratropium/Albuterol Sulfate 3 Ml Ampul.Neb IH 06/26/23 23:48 3 ml STAT ONE Administration Albuterol/Ipratropium Confirm 06/26/23 23:55 Ipratropium/Albuterol Sulfate 3 Ml Ampul.Neb Administered 06/26/23 23:56 Dose 3 ml IH .STK-MED ONE Methylprednisolone Sodium 0 mg 06/26/23 23:59 06/27/23 00:08 Succinate 125 mg/ Sterile IV 06/27/23 00:00 125 mg Water 2 ml STAT ONE Administration Ceftriaxone Sodium/Dextrose Confirm 06/27/23 00:07 Rocephin 2 Gm-D5w 50ml Bag Administered 06/27/23 00:08 Dose 2 g in 50 mls @ ud IV .STK-MED ONE Methylprednisolone Sodium Succinate Confirm 06/27/23 00:07 Methylprednis Sod Succ 125 Mg/2 Ml Vial Administered 06/27/23 00:08 Dose 125 mg .ROUTE .STK-MED ONE Sterile Water Confirm 06/27/23 00:07 Water For Injection,Sterile 10 Ml Vial Administered 06/27/23 00:08 Dose 10 ml IJ .STK-MED ONE Lab/Rad Data: Laboratory Result Diagrams 06/26/23 23:00 06/26/23 23:00 Laboratory Results 06/26/23 06/26/23 06/26/23 Range/Units 23:00 23:00 23:00 WBC 9.3 (4.0-10.5) x10^3/uL RBC 3.83 L (4.1-5.6) x10^6/uL Hgb 11.2 L (12.5-18.0) g/dL Hct 35.6 L (42-50) % MCV 93.0 (78-100) fL MCH 29.2 (26-32) pg MCHC 31.5 L (32-36) g/dL RDW 13.5 (11.5-14.0) % Plt Count 309 (150-450) x10^3/uL MPV 9.9 (7.5-11.0) fL Gran % 58.3 (36.0-66.0) % Immature Gran % (Auto) 0.6 H (0.00-0.4) % Nucleat RBC Rel Count 0.0 (0.00-0.1) % Eos # (Auto) 0.25 (0-0.5) x10^3/uL Immature Gran # (Auto) 0.06 H (0.00-0.03) x10^3u/L Absolute Lymphs (auto) 2.78 (1.0-4.6) x10^3/uL Absolute Monos (auto) 0.70 (0.0-1.3) x10^3/uL Absolute Nucleated RBC 0.00 (0.00-0.01) x10^3u/L Lymphocytes % 29.9 (24.0-44.0) % Monocytes % 7.5 (0.0-12.0) % Eosinophils % 2.7 (0.00-5.0) % Basophils % 1.0 (0.0-0.4) % Absolute Granulocytes 5.42 (1.4-6.9) x10^3/uL Basophils # 0.09 (0-0.4) x10^3/uL Sodium 142 (137-145) mmol/L Potassium 4.1 (3.5-5.1) mmol/L Chloride 108 H (98-107) mmol/L Carbon Dioxide 23 (22-30) mmol/L Anion Gap 14.7 (5-15) MEQ/L BUN 21 H (9-20) mg/dL Creatinine 1.61 H (0.66-1.25) mg/dL Estimated GFR 44.8 ML/MIN Glucose 113 H (74-106) mg/dL Calcium 9.4 (8.4-10.2) mg/dL Total Bilirubin 0.50 (0.2-1.3) mg/dL AST 33 (17-59) U/L ALT 21 (0-50) U/L Alkaline Phosphatase 137 H (38-126) U/L Troponin I < 0.012 (0.000-0.034) ng/mL NT-Pro-B Natriuret Pep 204 (<300) pg/mL Serum Total Protein 7.0 (6.3-8.2) g/dL Albumin 4.2 (3.5-5.0) g/dL - Progress Progress: improved Air Movement: good Progress Note: Patient is a 72-year-old male with a history of diabetes a cardiac stent placed approximately 5 years ago, hypertension, COPD presents to our ED for evaluation of chest pain and shortness of breath. Physical exam reveals wheezing and diminished breath sounds. Patient has been experiencing intermittent shortness of breath for approximately 1 month. Patient states shortness of breath now coupled with chest pain. Patient took a 325 mg aspirin this morning and and nitro sublingual prior to arrival. Testing included EKG which reveals a normal sinus rhythm. Chest x-ray shows no acute findings. Blood cultures pending. CBC CMP. Normocytic anemia with a hemoglobin of 11.2 observed. COVID test pending. BNP negative. Initial troponin negative. Patient received albuterol DuoNeb for shortness of breath. In light of patient's cardiac risk factors progressive shortness of breath now with chest pain patient will be admitted for a cardiac rule out as well as further evaluation and treatment of shortness of breath. Plan of care discussed with patient. He agrees to admission at [facility] for further evaluation and treatment. Complexity of problem addressed is moderate acute complicated No critical care time Complex of data reviewed and analyzed is extensive. Test ordered for test reviewed and analyzed. Clinical correlation made between findings and history and physical examination. Plan of care to be discussed with Dr. Arambula who will accept patient to observation. Risk of complication and or risk of morbidity/mortality of patient management is high. Patient received a duo nebulizer treatment for shortness of breath and wheezing. Patient will require hospitalization for further evaluation and treatment of shortness of breath and chest pain/ACS Vital stable. Plan of care established for shared decision making. Time spent to admit patient is approximately 15 minutes. 06/27/23 00:[address] Arambula who accepts admission at 12:15 AM. 06/27/23 00:15 Blood Culture(s) Obtained: Yes Antibiotics given: No Discussed with DrYanick: Daly Will see patient in: hospital (observation) Counseled pt/family regarding: lab results, diagnosis, rad results - Departure Departure Disposition: Observation Clinical Impression: ACS (acute coronary syndrome), Acute renal injury, Shortness of breath, COPD exacerbation, Normocytic anemia, Chest pain Condition: Stable Critical Care Time: No Referrals: TRACEY HOSKINS MD [Primary Care Provider] - Follow up/PCP as directed Instructions: Chronic Obstructive Pulmonary Disease
[2023-06-26 23:07] LABS: Absolute Neutrophil Ct (ANC) 5.42 x10^3/uL (1.4-6.9); Basophil (Absolute #) 0.09 x10^3/uL (0-0.4); Eosinophil % 2.7 % (0.00-5.0); Eosinophil (Absolute #) 0.25 x10^3/uL (0-0.5); Hematocrit 35.6 % (42-50); Hemoglobin 11.2 g/dL (12.5-18.0); IMMATURE GRAN # 0.06 x10^3u/L (0.00-0.03); IMMATURE GRAN % 0.6 % (0.00-0.4); Lymphocyte (Absolute #) 2.78 x10^3/uL (1.0-4.6); Lymphocytes % 29.9 % (24.0-44.0); Mean Corpuscular Hemoglobin 29.2 pg (26-32); Mean Corpuscular Hgb Concent. 31.5 g/dL (32-36); Mean Platelet Volume 9.9 fL (7.5-11.0); Monocytes % 7.5 % (0.0-12.0); Neutrophil % 58.3 % (36.0-66.0); Platelet Count 309 x10^3/uL (150-450); Red Blood Count 3.83 x10^6/uL (4.1-5.6); Red Cell Distribution Width 13.5 % (11.5-14.0); White Blood Count 9.3 x10^3/uL (4.0-10.5)
[2023-06-26 23:27] LABS: ALBUMIN 4.2 g/dL (3.5-5.0); ANION GAP 14.7 MEQ/L (5-15); BILIRUBIN,TOTAL 0.5 mg/dL (0.2-1.3); Calcium 9.4 mg/dL (8.4-10.2); Creatinine 1 1.61 mg/dL (0.66-1.25); EST GLOMERULAR FILTRATION RATE 44.8 ML/MIN; Potassium 4.1 mmol/L (3.5-5.1)
[2023-06-26] MEDS ORDERED: DUONEB 0.5-3 MG/3 ml Neb IH ONE ×2 (23:47→23:55)
[2023-06-26] MEDS ORDERED: solu-MEDROL 125 MG, Sterile H2O 10 ml 2 ML IV ONE ×2 (23:59)
[2023-06-27] MEDS ORDERED: ROCEPHIN 2 Gm-D5w 50ML BAG** 2 G/50 ML IVPB IV STA (00:04)
[2023-06-27] MEDS ORDERED: Zithromax 500 MG/ 250 ML NaCl Premix 500 MG/250 ML IVPB IV STA (00:04)
[2023-06-27] MEDS ORDERED: solu-MEDROL ONE (00:07)
[2023-06-27] MEDS ORDERED: Sterile H2O 10 ml IJ ONE (00:07)
[2023-06-27] MEDS ORDERED: ROCEPHIN 2 Gm-D5w 50ML BAG** 2 G/50 ML IVPB IV ONE (00:07)
[2023-06-27 00:44] LABS: INFLUENZA A NEGATIVE (NEGATIVE); INFLUENZA B NEGATIVE (NEGATIVE); RESPIRATORY SYNCTIAL VIRUS NEGATIVE (NEGATIVE); SARS-CoV-2 Xpert Express NEGATIVE (NEGATIVE)
[2023-06-27] MEDS ORDERED: Sodium Chloride 0.9% 1000 ML 1,000 ML IV SCH (01:16)
[2023-06-27] MEDS ORDERED: TYLENOL 325 MG PO PRN (01:16)
[2023-06-27] MEDS ORDERED: Zofran 4 MG/2 ML VIAL IV PRN (01:16)
[2023-06-27] MEDS ORDERED: HUMALOG SQ PRN (01:16)
[2023-06-27] MEDS ORDERED: Nitrostat 0.4 MG Tablet SL PRN (01:16)
[2023-06-27] MEDS ORDERED: DUONEB 0.5-3 MG/3 ml Neb IH PRN (01:53)
[2023-06-27] MEDS ORDERED: Nicoderm CQ 21 MG TOP SCH (02:00)
--- NOTE | 2023-06-27 02:01 | PCM.HP ---
History of Present Illness - Chief Complaint Chief Complaint: chest heaviness Date: 06/27/23 History of Present Illness: 72 y/o M with h/o CAD s/p PCI, mild COPD only on ICS/LABA, diet-controlled DM2, bipolar disorder, and BPH, who presents with chest pain and dyspnea. Patient reports he was painting a room of his house this afternoon when had onset of substernal chest heaviness, without radiation, associated with dyspnea, but no nausea, diaphoresis, or numbness. Was partially relieved by nitroglycerin x1, but still persistent, so came to ED, where pain resolved prior to further intervention. All told lasted about 5 hours. Denies similar prior symptoms; with his prior ID, he had sudden syncope and does not recall any chest pain. He has been active in general, able to walk a block and up a flight of stairs, with stable dyspnea on exertion that is unchanged recently. He has a sore throat, but denies cough, wheezing, sinus drainage, fevers, sick contacts, nausea or diarrhea. He chews 1/2 can of tobacco per day. Mother had CAD, but at advanced age. Currently chest pain free. He has been compliant with all of his medications except his Symbicort inhaler, because his granddaughter was messing with stuff on his bedside table and he can't find it. He states he has been eating and drinking normally recently, with no lightheadedness on standing, and has no new medications. - Review of Systems Constitutional: No Fever, No Chills, No Lethargy, No Malaise Eyes: No Symptoms Ears, Nose, & Throat: Throat Pain, No Sinus Drainage, No Throat Swelling, No Hoarse Respiratory: Short Of Breath, No Cough, No Wheezing Cardiac: Chest Pain, No Edema, No Palpitations, No Syncope, No Orthopnea Abdominal/Gastrointestinal: No Abdominal Pain, No Nausea, No Vomiting, No Diarrhea Genitourinary Symptoms: No Symptoms Musculoskeletal: No Symptoms Skin: No Symptoms All Other Systems: Reviewed and Negative Medications & Allergies Home Medications: Home Medication List Finasteride 5 mg [Proscar 5 MG] 5 mg PO DAILY 02/01/20 [History Confirmed 06/27/23] Hydrochlorothiazide 25 mg [hydroDIURIL 25 MG] 25 mg PO DAILY 02/01/20 [History Confirmed 06/27/23] Losartan Potassium 50 mg PO DAILY 02/01/20 [History Confirmed 06/27/23] Amitriptyline HCl 10 mg [Elavil 10 mg] 25 mg PO HS 12/08/20 [History Confirmed 06/27/23] Aspirin EC 325 mg [Ecotrin 325 MG] 325 mg PO DAILY 12/08/20 [History Confirmed 06/27/23] Carvedilol 12.5 mg [Coreg 12.5 mg] 12.5 mg PO BID 12/08/20 [History Confirmed 06/27/23] Citalopram Hydrobromide 20 mg* [ceLEXa 20 MG] 40 mg PO DAILY 01/09/23 [History Confirmed 06/27/23] Metformin HCl 500 mg [Glucophage 500 MG] 500 mg PO DAILY 01/09/23 [History Confirmed 06/27/23] Nitroglycerin 0.4 mg Tablet [Nitrostat 0.4 MG Tablet] 0.4 mg SL Q5MIN PRN MR X 3 PRN 01/09/23 [History Confirmed 06/27/23] Pramipexole Di-HCl [Pramipexole Dihydrochloride] 0.5 mg PO BID 01/09/23 [History Confirmed 06/27/23] Pravastatin Sodium 40 mg PO DAILY 01/09/23 [History Confirmed 06/27/23] Tamsulosin HCl 0.4 mg [Flomax 0.4 MG] 0.4 mg PO DAILY 01/09/23 [History Confirmed 06/27/23] Venlafaxine HCl [Venlafaxine HCl ER] 150 mg PO DAILY 01/09/23 [History Confirmed 06/27/23] gemfibroziL [Gemfibrozil] 600 mg PO DAILY 01/09/23 [History Confirmed 06/27/23] Budesonide/Formoterol Fumarate [Budesonide-Formoterol 160-4.5] 0 gm IH UD 05/07/23 [History Confirmed 06/27/23] Oxycodone HCl [Oxycodone HCl ER] 10 mg PO BID PRN PRN 05/07/23 [History Confirmed 06/27/23] Temazepam 30 mg PO HS 05/07/23 [History Confirmed 06/27/23] Olanzapine [Olanzapine Odt] 10 mg PO HS 06/26/23 [History Confirmed 06/27/23] Omeprazole 40 mg PO DAILY 06/26/23 [History Confirmed 06/27/23] Pramipexole Di-HCl [Pramipexole Dihydrochloride] 0.5 mg PO BID 06/26/23 [History Confirmed 06/27/23] Saw/Vit E/Sod Mariella/Lyc/Beta/Pyg [Prostate Health Caplet] 1 tab PO DAILY 06/26/23 [History Confirmed 06/27/23] Vit C/E/Zn/Coppr/Lutein/Zeaxan [Preservision Areds 2 Chew Tab] 2 tab PO BID 06/26/23 [History Confirmed 06/27/23] Allergies/Adverse Reactions: Allergies Allergy/AdvReac Type Severity Reaction Status Date / Time penicillin G Allergy Mild Hives Verified 06/26/23 22:32 meperidine [From Demerol] AdvReac Mild Nausea and Verified 06/26/23 22:32 Vomiting - Past Medical History Past Medical History: Yes Neurological History: No Pertinent History, TIA ENT History: Cataracts Cardiac History: Coronary Artery Disease, High Cholesterol, Hypertension Respiratory History: COPD, Sleep Apnea Endocrine Medical History: Diabetes Type II Musculoskelatal History: Arthritis GI Medical History: GERD History: Other (BPH) Pyscho-Social History: Bipolar, Depression Male Reproductive Disorders: No Pertinent History Comment: . - Past Surgical History Past Surgical History: Yes Neuro Surgical History: No Pertinent History Cardiac History: Cardiac Catheterization, Cardiac Stent Respiratory Surgery: No Pertinent History GI Surgical History: Appendectomy, Other Genitourinary Surgical Hx: No Pertinent History Musculskeletal Surgical Hx: Orthopedic Surgery Male Surgical History: Other Other Surgical History: HYDROCELE REPAIR, spinal surgey, hip replacement x2, bilateral hand, total hip, GJ VAGOTOMY 1970, HEMORRHOIDECTOMY - Social History Smoking Status: Former smoker (chews 1/2 can tobacco daily) Exposure to second hand smoke: No Alcohol: None Drug Use: none Significant Family History: heart disease (mother, at advanced age), cancer (father and siblings) - Physical Exam Vital Signs: Vital Signs - 24 hr Temp Pulse Resp BP BP Pulse Ox 06/27/23 00:59 97.6 F 74 18 150/72 97 06/27/23 00:16 99 06/27/23 00:00 87 18 125/67 97 06/26/23 23:58 77 18 92 L 06/26/23 23:04 18 99 06/26/23 23:02 99 06/26/23 23:00 73 16 140/79 96 06/26/23 22:33 98.0 F 75 14 149/72 149/72 98 General Appearance: no apparent distress Neurologic Exam: alert, 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 Eye Exam: PERRL/EOMI Respiratory Exam: normal breath sounds, lungs clear, No respiratory distress, No diminished breath sounds, No accessory muscle use, No prolonged expirations, No crackles/rales, No rhonchi, No wheezing Cardiovascular Exam: regular rate/rhythm, normal heart sounds, No murmur, No edema Gastrointestinal/Abdomen Exam: soft, No distention Results - Labs Lab/Micro Results: Lab Results-Last 24 Hours 06/26/23 06/26/23 06/26/23 Range/Units 00:04 23:00 23:00 WBC 9.3 (4.0-10.5) x10^3/uL RBC 3.83 L (4.1-5.6) x10^6/uL Hgb 11.2 L (12.5-18.0) g/dL Hct 35.6 L (42-50) % MCV 93.0 (78-100) fL MCH 29.2 (26-32) pg MCHC 31.5 L (32-36) g/dL RDW 13.5 (11.5-14.0) % Plt Count 309 (150-450) x10^3/uL MPV 9.9 (7.5-11.0) fL Gran % 58.3 (36.0-66.0) % Immature Gran % (Auto) 0.6 H (0.00-0.4) % Nucleat RBC Rel Count 0.0 (0.00-0.1) % Eos # (Auto) 0.25 (0-0.5) x10^3/uL Immature Gran # (Auto) 0.06 H (0.00-0.03) x10^3u/L Absolute Lymphs (auto) 2.78 (1.0-4.6) x10^3/uL Absolute Monos (auto) 0.70 (0.0-1.3) x10^3/uL Absolute Nucleated RBC 0.00 (0.00-0.01) x10^3u/L Lymphocytes % 29.9 (24.0-44.0) % Monocytes % 7.5 (0.0-12.0) % Eosinophils % 2.7 (0.00-5.0) % Basophils % 1.0 (0.0-0.4) % Absolute Granulocytes 5.42 (1.4-6.9) x10^3/uL Basophils # 0.09 (0-0.4) x10^3/uL Sodium 142 (137-145) mmol/L Potassium 4.1 (3.5-5.1) mmol/L Chloride 108 H (98-107) mmol/L Carbon Dioxide 23 (22-30) mmol/L Anion Gap 14.7 (5-15) MEQ/L BUN 21 H (9-20) mg/dL Creatinine 1.61 H (0.66-1.25) mg/dL Estimated GFR 44.8 ML/MIN Glucose 113 H (74-106) mg/dL Calcium 9.4 (8.4-10.2) mg/dL Total Bilirubin 0.50 (0.2-1.3) mg/dL AST 33 (17-59) U/L ALT 21 (0-50) U/L Alkaline Phosphatase 137 H (38-126) U/L Troponin I (0.000-0.034) ng/mL NT-Pro-B Natriuret Pep 204 (<300) pg/mL Serum Total Protein 7.0 (6.3-8.2) g/dL Albumin 4.2 (3.5-5.0) g/dL Influenza Type A Ag NEGATIVE (NEGATIVE) Influenza Type B Ag NEGATIVE (NEGATIVE) RSV (PCR) NEGATIVE (NEGATIVE) SARS-CoV-2 (PCR) NEGATIVE (NEGATIVE) 06/26/23 Range/Units 23:00 WBC (4.0-10.5) x10^3/uL RBC (4.1-5.6) x10^6/uL Hgb (12.5-18.0) g/dL Hct (42-50) % MCV (78-100) fL MCH (26-32) pg MCHC (32-36) g/dL RDW (11.5-14.0) % Plt Count (150-450) x10^3/uL MPV (7.5-11.0) fL Gran % (36.0-66.0) % Immature Gran % (Auto) (0.00-0.4) % Nucleat RBC Rel Count (0.00-0.1) % Eos # (Auto) (0-0.5) x10^3/uL Immature Gran # (Auto) (0.00-0.03) x10^3u/L Absolute Lymphs (auto) (1.0-4.6) x10^3/uL Absolute Monos (auto) (0.0-1.3) x10^3/uL Absolute Nucleated RBC (0.00-0.01) x10^3u/L Lymphocytes % (24.0-44.0) % Monocytes % (0.0-12.0) % Eosinophils % (0.00-5.0) % Basophils % (0.0-0.4) % Absolute Granulocytes (1.4-6.9) x10^3/uL Basophils # (0-0.4) x10^3/uL Sodium (137-145) mmol/L Potassium (3.5-5.1) mmol/L Chloride (98-107) mmol/L Carbon Dioxide (22-30) mmol/L Anion Gap (5-15) MEQ/L BUN (9-20) mg/dL Creatinine (0.66-1.25) mg/dL Estimated GFR ML/MIN Glucose (74-106) mg/dL Calcium (8.4-10.2) mg/dL Total Bilirubin (0.2-1.3) mg/dL AST (17-59) U/L ALT (0-50) U/L Alkaline Phosphatase (38-126) U/L Troponin I < 0.012 (0.000-0.034) ng/mL NT-Pro-B Natriuret Pep (<300) pg/mL Serum Total Protein (6.3-8.2) g/dL Albumin (3.5-5.0) g/dL Influenza Type A Ag (NEGATIVE) Influenza Type B Ag (NEGATIVE) RSV (PCR) (NEGATIVE) SARS-CoV-2 (PCR) (NEGATIVE) - Radiology Impressions Radiology Exams & Impressions: Radiology Procedures Category Date Time Status CHEST 1 VIEW (PORTABLE) Stat Exams 06/26/23 22:55 Taken Renal Ultrasound [KIDNEY] [US] Routine Exams 06/27/23 01:16 Ordered CXR reviewed, patchy RML infiltrate is unchanged when compared to prior CXR in October. No effusions, no edema. - Other Procedures and Tests Respiratory Therapy 06/26/23 23:53 Respiratory Therapy Assessment DAILY 06/27/23 01:16 Schedule Outpt Stress Test Routine 06/27/23 06:54 EKG ROUTINE 06/28/23 05:00 EKG DAILY 06/29/23 05:00 EKG DAILY 06/30/23 05:00 EKG DAILY Assessment/Plan (1) Chest pain Current Visit: Yes Status: Acute Assessment & Plan: 72 y/o M with h/o DM2, CAD, COPD, BPH, and bipolar disorder, here with chest pain, found to also have BRENDA. ## Chest pain - provoked by exertion, not relieved by rest, but partially relieved by nitroglycerin. Initial EKG and troponin negative. Has h/o prior CAD, and active tobacco user, so remains high risk. - monitor on telemetry - serial troponin, EKG - if negative, will need referral for outpatient stress ## BRENDA - normal Cr in December, now up to 1.7. Low BUN argues against pre-renal cause. Is on losartan and HCTZ at home, but these appear to be chronic. Has h/o BPH, so risk factor for obstructive uropathy - hold losaran, HCTZ (and metformin) - check urine lytes, UA for causes - give gentle NS at 50 ml/hr, repeat BMP in AM - check renal U/S for evidence of obstruction if not improved in AM ## COPD - initial report from ED physician reported concern for COPD exacerbation, but chief complaint is more chest pain-related. On current exam, lungs are clear, and moving air well, although it is possible this is due to gettings neb treatment in ED a few hours ago. The possible RML infiltrate on CXR is chronic, unchanged from prior CXR in October. At this point, does not seem to be in severe COPD exacerbation. - decrease SoluMedrol to 40 daily, and can discontinue tomorrow if no further evidence of COPD exacerbation - PRN DuoNeb q4h ## Hypertension - BP currently controlled. - holding home HCTZ 25, losartan 50 - continue Coreg 12.5 BID ## DM2 - only on metformin at home. - hold metformin due to BRENDA - start low-dose sliding scale insulin ## chewing tobacco dependence - chews 1/2 can per day - start nicotine 21 mg patch for cravings while in hospital ## CAD - with h/o ID - continue ASA 325, Coreg 12.5 BID - continue home Pravachol 40; with h/o known CAD, would be better with high- potency statin, but this might have been limited by interactions with his psych medications. ## BPH - continue home tamsulosin 0.4, finasteride 5 ## Bipolar disorder - mood and affect appropriate today. - continue home regimen of Celexa 40 daily, Effexor 150 daily, and Olanzapine 10 qHS Code Status: DNR Diet: Diabetic Prophylaxis: Heparin SQ TID Dispo: pending r/o ID, and improvement in Cr, goal is home Code(s): R07.9 - CHEST PAIN, UNSPECIFIED (2) Acute renal injury Current Visit: Yes Status: Acute Code(s): N17.9 - ACUTE KIDNEY FAILURE, UNSPECIFIED Telemedicine Encounter - Telemedicine Encounter Telemedicine Encounter: The entirety of this encounter was performed via Telemedicine"
[2023-06-27 02:20] LABS: Appearance Clear (Clear); Bacteria None Seen /HPF (None Seen); Bilirubin Negative (Negative); Blood Negative (Negative); Epithelial Cells None Seen /HPF (None Seen); Glucose, Urine Negative (Negative); Hyaline Casts NONE SEEN /LPF (0-2); Ketones Negative (Negative); Leukocyte Esterase Negative (Negative); Nitrite Negative (Negative); Protein,Urine Dip Negative (Negative); RBC 0-2 /HPF (0-5); Urobilinogen 0.2 mg/dL (0.2); WBC 0-2 /HPF (0-5)
[2023-06-27 02:23] LABS: CREATININE,URINE RANDOM 59.6 MG/DL
[2023-06-27 02:27] LABS: ADD URINE CULTURE? NO (NO)
[2023-06-27] MEDS ORDERED: DUONEB 0.5-3 MG/3 ml Neb IH SCH (03:00)
[2023-06-27 05:45] LABS: ANION GAP 13.4 MEQ/L (5-15); Calcium 9.3 mg/dL (8.4-10.2); Creatinine 1 1.31 mg/dL (0.66-1.25); EST GLOMERULAR FILTRATION RATE 56.8 ML/MIN; Potassium 4.1 mmol/L (3.5-5.1); Risk Ratio 4.7
[2023-06-27] MEDS ORDERED: solu-MEDROL 40 MG, Sterile H2O 10 ml 1 ML IV SCH ×4 (06:00→10:00)
--- NOTE | 2023-06-27 08:36 | XRAY ---
Indication: Short of breath. Comparison: November 02, 2022 Portable chest again hyperinflated and clear. Heart and mediastinal structures within normal limits. Bony thorax intact again with osteopenia, mild degenerative changes, old right 6 rib fracture, and T11/T12 kyphoplasty. Impression: Continued nonacute hyperinflated chest with chronic features.
[2023-06-27] MEDS ORDERED: Flomax 0.4 MG PO SCH (10:00)
[2023-06-27] MEDS ORDERED: Mirapex 0.5 MG Tablet PO SCH (10:00)
[2023-06-27] MEDS ORDERED: Proscar 5 MG PO SCH (10:00)
[2023-06-27] MEDS ORDERED: NON-FORMULARY ITEM (Omeprazole [Omeprazole] 40 MG Capsule.Dr) PO SCH (10:00)
[2023-06-27] MEDS ORDERED: ceLEXa 20 MG PO SCH (10:00)
[2023-06-27] MEDS ORDERED: ZOCOR 20MG PO SCH (10:00)
[2023-06-27] MEDS ORDERED: Effexor XR 75 MG PO SCH (10:00)
[2023-06-27] MEDS ORDERED: NON-FORMULARY ITEM (Venlafaxine Hcl [Venlafaxine Hcl Er] 150 MG Tab.Er.24) PO SCH (10:00)
[2023-06-27] MEDS ORDERED: HEPARIN 5000 UNITS/0.5 ML (HIGH RISK MED) SQ SCH (10:00)
[2023-06-27] MEDS ORDERED: NON-FORMULARY ITEM (Pravastatin Sodium [Pravastatin Sodium] 40 MG Tablet) PO SCH (10:00)
[2023-06-27] MEDS ORDERED: Ecotrin 325 MG PO SCH (10:00)
[2023-06-27] MEDS ORDERED: Protonix 40MG Tablet PO SCH (10:00)
[2023-06-27] MEDS ORDERED: COREG 12.5 MG PO SCH (10:00)
--- NOTE | 2023-06-27 10:57 | XRAY ---
Indication: Acute kidney injury. Two-dimensional renal sonogram performed. Comparison: None Both kidneys are normal in reniform shape with normal color perfusion. Left kidney demonstrates anatomic variant for dromedary hump. Right kidney measures 9.9 x 5.5 x 4.2 cm and the left measures 9.8 x 5.4 x 4.1 cm. Left lower kidney demonstrates 7 mm nonobstructing cortical calculus/calcification. No other focal solid/cystic renal mass or hydronephrosis. Cortical medullary differentiation preserved. Mildly distended urinary bladder is grossly unremarkable. Normal left ureteral jet. Right ureteral jet not seen within the allotted exam time. Impression: Nonobstructing left renal micro-calculus/calcification. Remaining renal sonogram negative.
[2023-06-27 11:20] VITALS: BP 134/66; PULSE 87; RESP 18; TEMP 98.7; O2SAT 92
--- NOTE | 2023-06-27 11:37 | PCM.DS ---
Discharge Summary Date of Admission: 06/27/23 00:44 Date of Discharge: 06/27/23 Admitting Physician: EVELYN MULLIGAN MD Primary Care Provider: TRACEY HOSKINS MD Allergies Allergies penicillin G Allergy (Mild, Verified 06/26/23 22:32) Hives meperidine [From Demerol] Adverse Reaction (Mild, Verified 06/26/23 22:32) Nausea and Vomiting Hospital Summary - Hospital Course Hospital Course: 72 y/o M with h/o CAD s/p PCI, mild COPD only on ICS/LABA, diet-controlled DM2, bipolar disorder, and BPH, who presents with chest pain and dyspnea. Patient reports he was painting a room of his house this afternoon when had onset of substernal chest heaviness, without radiation, associated with dyspnea, but no nausea, diaphoresis, or numbness. Was partially relieved by nitroglycerin x1, but still persistent, so came to ED, where pain resolved prior to further intervention. All told lasted about 5 hours. Denies similar prior symptoms; with his prior SD, he had sudden syncope and does not recall any chest pain. He has been active in general, able to walk a block and up a flight of stairs, with stable dyspnea on exertion that is unchanged recently. He has a sore throat, but denies cough, wheezing, sinus drainage, fevers, sick contacts, nausea or diarrhea. He chews 1/2 can of tobacco per day. Mother had CAD, but at advanced age. Currently chest pain free. He has been compliant with all of his medications except his Symbicort inhaler, because his granddaughter was messing with stuff on his bedside table and he can't find it. He states he has been eati ng and drinking normally recently, with no lightheadedness on standing, and has no new medications. Today he is ready to go home. Troponins were negative. Renal US was negative. He will need to f/u with urology and cardiology OP. - Vitals & Intake/Output Vital Signs: Vital Signs Temperature 98.7 F 06/27/23 11:20 Pulse Rate 87 06/27/23 11:20 Respiratory Rate 18 06/27/23 11:20 Blood Pressure 134/66 06/27/23 11:20 O2 Sat by Pulse Oximetry 92 L 06/27/23 11:20 Intake & Output: Intake & Output 06/24/23 06/25/23 06/26/23 06/27/23 11:59 11:59 11:59 11:59 Intake Total 120 Output Total 350 Balance -230 Weight 78.3 kg - Lab Result Diagrams: 06/26/23 23:00 06/27/23 04:51 Lab Results-Last 24 Hrs: Lab Results-Last 24 Hours 06/26/23 06/26/23 06/26/23 Range/Units 00:04 23:00 23:00 WBC 9.3 (4.0-10.5) x10^3/uL RBC 3.83 L (4.1-5.6) x10^6/uL Hgb 11.2 L (12.5-18.0) g/dL Hct 35.6 L (42-50) % MCV 93.0 (78-100) fL MCH 29.2 (26-32) pg MCHC 31.5 L (32-36) g/dL RDW 13.5 (11.5-14.0) % Plt Count 309 (150-450) x10^3/uL MPV 9.9 (7.5-11.0) fL Gran % 58.3 (36.0-66.0) % Immature Gran % (Auto) 0.6 H (0.00-0.4) % Nucleat RBC Rel Count 0.0 (0.00-0.1) % Eos # (Auto) 0.25 (0-0.5) x10^3/uL Immature Gran # (Auto) 0.06 H (0.00-0.03) x10^3u/L Absolute Lymphs (auto) 2.78 (1.0-4.6) x10^3/uL Absolute Monos (auto) 0.70 (0.0-1.3) x10^3/uL Absolute Nucleated RBC 0.00 (0.00-0.01) x10^3u/L Lymphocytes % 29.9 (24.0-44.0) % Monocytes % 7.5 (0.0-12.0) % Eosinophils % 2.7 (0.00-5.0) % Basophils % 1.0 (0.0-0.4) % Absolute Granulocytes 5.42 (1.4-6.9) x10^3/uL Basophils # 0.09 (0-0.4) x10^3/uL Sodium 142 (137-145) mmol/L Potassium 4.1 (3.5-5.1) mmol/L Chloride 108 H (98-107) mmol/L Carbon Dioxide 23 (22-30) mmol/L Anion Gap 14.7 (5-15) MEQ/L BUN 21 H (9-20) mg/dL Creatinine 1.61 H (0.66-1.25) mg/dL Estimated GFR 44.8 ML/MIN Glucose 113 H (74-106) mg/dL POC Glucometer (74 to 106) mg/dL Hemoglobin A1c (4.5-6.0) % Calcium 9.4 (8.4-10.2) mg/dL Total Bilirubin 0.50 (0.2-1.3) mg/dL AST 33 (17-59) U/L ALT 21 (0-50) U/L Alkaline Phosphatase 137 H (38-126) U/L Troponin I (0.000-0.034) ng/mL NT-Pro-B Natriuret Pep 204 (<300) pg/mL Serum Total Protein 7.0 (6.3-8.2) g/dL Albumin 4.2 (3.5-5.0) g/dL Triglycerides (30-150) mg/dL Cholesterol (50-200) mg/dL LDL Cholesterol (30-100) mg/dL HDL Cholesterol (40-60) mg/dL Heart Disease Risk Ratio Urine Color (Yellow) Urine Appearance (Clear) Urine pH (4.6-8.0) Ur Specific [place] (1.005-1.030) Urine Protein (Negative) Urine Glucose (UA) (Negative) mg/dL Urine Ketones (Negative) Urine Blood (Negative) Urine Nitrite (Negative) Urine Bilirubin (Negative) Urine Urobilinogen (0.2) mg/dL Ur Leukocyte Esterase (Negative) U Hyaline Cast (Auto) (0-2) /LPF Urine Microscopic RBC (0-5) /HPF Urine Microscopic WBC (0-5) /HPF Ur Epithelial Cells (None Seen) /HPF Urine Bacteria (None Seen) /HPF Urine Culture Reflexed (NO) Ur Random Creatinine MG/DL Urine Sodium (30-90) mmol/L Influenza Type A Ag NEGATIVE (NEGATIVE) Influenza Type B Ag NEGATIVE (NEGATIVE) RSV (PCR) NEGATIVE (NEGATIVE) SARS-CoV-2 (PCR) NEGATIVE (NEGATIVE) 06/26/23 06/27/23 06/27/23 Range/Units 23:00 02:10 02:10 WBC (4.0-10.5) x10^3/uL RBC (4.1-5.6) x10^6/uL Hgb (12.5-18.0) g/dL Hct (42-50) % MCV (78-100) fL MCH (26-32) pg MCHC (32-36) g/dL RDW (11.5-14.0) % Plt Count (150-450) x10^3/uL MPV (7.5-11.0) fL Gran % (36.0-66.0) % Immature Gran % (Auto) (0.00-0.4) % Nucleat RBC Rel Count (0.00-0.1) % Eos # (Auto) (0-0.5) x10^3/uL Immature Gran # (Auto) (0.00-0.03) x10^3u/L Absolute Lymphs (auto) (1.0-4.6) x10^3/uL Absolute Monos (auto) (0.0-1.3) x10^3/uL Absolute Nucleated RBC (0.00-0.01) x10^3u/L Lymphocytes % (24.0-44.0) % Monocytes % (0.0-12.0) % Eosinophils % (0.00-5.0) % Basophils % (0.0-0.4) % Absolute Granulocytes (1.4-6.9) x10^3/uL Basophils # (0-0.4) x10^3/uL Sodium (137-145) mmol/L Potassium (3.5-5.1) mmol/L Chloride (98-107) mmol/L Carbon Dioxide (22-30) mmol/L Anion Gap (5-15) MEQ/L BUN (9-20) mg/dL Creatinine (0.66-1.25) mg/dL Estimated GFR ML/MIN Glucose (74-106) mg/dL POC Glucometer (74 to 106) mg/dL Hemoglobin A1c (4.5-6.0) % Calcium (8.4-10.2) mg/dL Total Bilirubin (0.2-1.3) mg/dL AST (17-59) U/L ALT (0-50) U/L Alkaline Phosphatase (38-126) U/L Troponin I < 0.012 (0.000-0.034) ng/mL NT-Pro-B Natriuret Pep (<300) pg/mL Serum Total Protein (6.3-8.2) g/dL Albumin (3.5-5.0) g/dL Triglycerides (30-150) mg/dL Cholesterol (50-200) mg/dL LDL Cholesterol (30-100) mg/dL HDL Cholesterol (40-60) mg/dL Heart Disease Risk Ratio Urine Color Yellow (Yellow) Urine Appearance Clear (Clear) Urine pH 6.0 (4.6-8.0) Ur Specific [place] 1.010 (1.005-1.030) Urine Protein Negative (Negative) Urine Glucose (UA) Negative (Negative) mg/dL Urine Ketones Negative (Negative) Urine Blood Negative (Negative) Urine Nitrite Negative (Negative) Urine Bilirubin Negative (Negative) Urine Urobilinogen 0.2 (0.2) mg/dL Ur Leukocyte Esterase Negative (Negative) U Hyaline Cast (Auto) NONE SEEN (0-2) /LPF Urine Microscopic RBC 0-2 (0-5) /HPF Urine Microscopic WBC 0-2 (0-5) /HPF Ur Epithelial Cells None Seen (None Seen) /HPF Urine Bacteria None Seen (None Seen) /HPF Urine Culture Reflexed NO (NO) Ur Random Creatinine 59.6 MG/DL Urine Sodium 130 H (30-90) mmol/L Influenza Type A Ag (NEGATIVE) Influenza Type B Ag (NEGATIVE) RSV (PCR) (NEGATIVE) SARS-CoV-2 (PCR) (NEGATIVE) 06/27/23 06/27/23 06/27/23 Range/Units 04:51 04:51 04:51 WBC (4.0-10.5) x10^3/uL RBC (4.1-5.6) x10^6/uL Hgb (12.5-18.0) g/dL Hct (42-50) % MCV (78-100) fL MCH (26-32) pg MCHC (32-36) g/dL RDW (11.5-14.0) % Plt Count (150-450) x10^3/uL MPV (7.5-11.0) fL Gran % (36.0-66.0) % Immature Gran % (Auto) (0.00-0.4) % Nucleat RBC Rel Count (0.00-0.1) % Eos # (Auto) (0-0.5) x10^3/uL Immature Gran # (Auto) (0.00-0.03) x10^3u/L Absolute Lymphs (auto) (1.0-4.6) x10^3/uL Absolute Monos (auto) (0.0-1.3) x10^3/uL Absolute Nucleated RBC (0.00-0.01) x10^3u/L Lymphocytes % (24.0-44.0) % Monocytes % (0.0-12.0) % Eosinophils % (0.00-5.0) % Basophils % (0.0-0.4) % Absolute Granulocytes (1.4-6.9) x10^3/uL Basophils # (0-0.4) x10^3/uL Sodium 141 (137-145) mmol/L Potassium 4.1 (3.5-5.1) mmol/L Chloride 107 (98-107) mmol/L Carbon Dioxide 24 (22-30) mmol/L Anion Gap 13.4 (5-15) MEQ/L BUN 20 (9-20) mg/dL Creatinine 1.31 H (0.66-1.25) mg/dL Estimated GFR 56.8 ML/MIN Glucose 196 H (74-106) mg/dL POC Glucometer (74 to 106) mg/dL Hemoglobin A1c 6.00 (4.5-6.0) % Calcium 9.3 (8.4-10.2) mg/dL Total Bilirubin (0.2-1.3) mg/dL AST (17-59) U/L ALT (0-50) U/L Alkaline Phosphatase (38-126) U/L Troponin I < 0.012 (0.000-0.034) ng/mL NT-Pro-B Natriuret Pep (<300) pg/mL Serum Total Protein (6.3-8.2) g/dL Albumin (3.5-5.0) g/dL Triglycerides 140 (30-150) mg/dL Cholesterol 177 (50-200) mg/dL LDL Cholesterol 92 (30-100) mg/dL HDL Cholesterol 38 L (40-60) mg/dL Heart Disease Risk Ratio 4.7 Urine Color (Yellow) Urine Appearance (Clear) Urine pH (4.6-8.0) Ur Specific [place] (1.005-1.030) Urine Protein (Negative) Urine Glucose (UA) (Negative) mg/dL Urine Ketones (Negative) Urine Blood (Negative) Urine Nitrite (Negative) Urine Bilirubin (Negative) Urine Urobilinogen (0.2) mg/dL Ur Leukocyte Esterase (Negative) U Hyaline Cast (Auto) (0-2) /LPF Urine Microscopic RBC (0-5) /HPF Urine Microscopic WBC (0-5) /HPF Ur Epithelial Cells (None Seen) /HPF Urine Bacteria (None Seen) /HPF Urine Culture Reflexed (NO) Ur Random Creatinine MG/DL Urine Sodium (30-90) mmol/L Influenza Type A Ag (NEGATIVE) Influenza Type B Ag (NEGATIVE) RSV (PCR) (NEGATIVE) SARS-CoV-2 (PCR) (NEGATIVE) 06/27/23 06/27/23 06/27/23 Range/Units 06:52 07:39 11:06 WBC (4.0-10.5) x10^3/uL RBC (4.1-5.6) x10^6/uL Hgb (12.5-18.0) g/dL Hct (42-50) % MCV (78-100) fL MCH (26-32) pg MCHC (32-36) g/dL RDW (11.5-14.0) % Plt Count (150-450) x10^3/uL MPV (7.5-11.0) fL Gran % (36.0-66.0) % Immature Gran % (Auto) (0.00-0.4) % Nucleat RBC Rel Count (0.00-0.1) % Eos # (Auto) (0-0.5) x10^3/uL Immature Gran # (Auto) (0.00-0.03) x10^3u/L Absolute Lymphs (auto) (1.0-4.6) x10^3/uL Absolute Monos (auto) (0.0-1.3) x10^3/uL Absolute Nucleated RBC (0.00-0.01) x10^3u/L Lymphocytes % (24.0-44.0) % Monocytes % (0.0-12.0) % Eosinophils % (0.00-5.0) % Basophils % (0.0-0.4) % Absolute Granulocytes (1.4-6.9) x10^3/uL Basophils # (0-0.4) x10^3/uL Sodium (137-145) mmol/L Potassium (3.5-5.1) mmol/L Chloride (98-107) mmol/L Carbon Dioxide (22-30) mmol/L Anion Gap (5-15) MEQ/L BUN (9-20) mg/dL Creatinine (0.66-1.25) mg/dL Estimated GFR ML/MIN Glucose (74-106) mg/dL POC Glucometer 210 H 203 H (74 to 106) mg/dL Hemoglobin A1c (4.5-6.0) % Calcium (8.4-10.2) mg/dL Total Bilirubin (0.2-1.3) mg/dL AST (17-59) U/L ALT (0-50) U/L Alkaline Phosphatase (38-126) U/L Troponin I < 0.012 (0.000-0.034) ng/mL NT-Pro-B Natriuret Pep (<300) pg/mL Serum Total Protein (6.3-8.2) g/dL Albumin (3.5-5.0) g/dL Triglycerides (30-150) mg/dL Cholesterol (50-200) mg/dL LDL Cholesterol (30-100) mg/dL HDL Cholesterol (40-60) mg/dL Heart Disease Risk Ratio Urine Color (Yellow) Urine Appearance (Clear) Urine pH (4.6-8.0) Ur Specific [place] (1.005-1.030) Urine Protein (Negative) Urine Glucose (UA) (Negative) mg/dL Urine Ketones (Negative) Urine Blood (Negative) Urine Nitrite (Negative) Urine Bilirubin (Negative) Urine Urobilinogen (0.2) mg/dL Ur Leukocyte Esterase (Negative) U Hyaline Cast (Auto) (0-2) /LPF Urine Microscopic RBC (0-5) /HPF Urine Microscopic WBC (0-5) /HPF Ur Epithelial Cells (None Seen) /HPF Urine Bacteria (None Seen) /HPF Urine Culture Reflexed (NO) Ur Random Creatinine MG/DL Urine Sodium (30-90) mmol/L Influenza Type A Ag (NEGATIVE) Influenza Type B Ag (NEGATIVE) RSV (PCR) (NEGATIVE) SARS-CoV-2 (PCR) (NEGATIVE) Micro Results-Entire Visit: Accuchecks Date 06/27/23 Date 06/27/23 Time 11:20 - Radiology Exams Ordered Rad Exams-Entire Visit: Radiology Procedures Category Date Time Status CHEST 1 VIEW (PORTABLE) Stat Exams 06/26/23 22:55 Completed Renal Ultrasound [KIDNEY] [US] Routine Exams 06/27/23 01:16 Completed - Procedures and Test Procedures and Tests throughout Hospitalization: Therapy Orders & Screens 06/26/23 23:53 Respiratory Therapy Assessment DAILY Comment: 06/27/23 01:16 EKG Q8HX2,QAMX3,PRN Comment: Diagnosis: Chest pain, ACS, shortness of breath, wheezing, COPD exacerbation 06/27/23 06:54 EKG ROUTINE Comment: Diagnosis: Chest pain, ACS, shortness of breath, wheezing, COPD exacerbation 06/27/23 11:29 Respiratory Therapy Consult ROUTINE Comment: Reason For Exam: Diagnosis: chest heaviness 06/28/23 05:00 EKG DAILY Comment: Diagnosis: Chest pain, ACS, shortness of breath, wheezing, COPD exacerbation 06/29/23 05:00 EKG DAILY Comment: Diagnosis: Chest pain, ACS, shortness of breath, wheezing, COPD exacerbation 06/30/23 05:00 EKG DAILY Comment: Diagnosis: Chest pain, ACS, shortness of breath, wheezing, COPD exacerbation Discharge Exam General Appearance: no apparent distress, alert Neurologic Exam: alert, 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, cooperative, normal mood/affect, nml cerebellar function, sensation nml, No motor deficits Eye Exam: PERRL, EOMI, eyes nml inspection Ears, Nose, Throat Exam: normal ENT inspection, pharynx normal, moist mucous membranes Neck Exam: normal inspection, non-tender, supple, full range of motion Respiratory Exam: normal breath sounds, lungs clear, No respiratory distress Cardiovascular Exam: regular rate/rhythm, normal heart sounds Gastrointestinal/Abdomen Exam: soft, No tenderness, No mass Male Genitalia Exam: deferred Rectal Exam: deferred Back Exam: normal inspection, normal range of motion, No CVA tenderness, No v ertebral tenderness Extremity Exam: normal inspection, normal range of motion Skin Exam: normal color, warm, dry Final Diagnosis/Problem List - Final Discharge Diagnosis/Problem (1) COPD exacerbation Current Visit: Yes Status: Acute Assessment & Plan: - received steroids while IP- d/c - Duonebs - Chest XR 06/26/23 Impression: Continued nonacute hyperinflated chest with chronic features. - RA- 94% Code(s): J44.1 - CHRONIC OBSTRUCTIVE PULMONARY DISEASE W (ACUTE) EXACERBATION (2) Chest pain Current Visit: Yes Status: Acute Assessment & Plan: - monitor on telemetry - serial troponin negative - EKG - will need referral for outpatient stress test - F/u with cardiology Code(s): R07.9 - CHEST PAIN, UNSPECIFIED (3) HTN (hypertension) Current Visit: Yes Status: Acute Assessment & Plan: - held due to BRENDA- HCTZ 25, losartan 50- can continue OP - continue Coreg 12.5 BID Code(s): I10 - ESSENTIAL (PRIMARY) HYPERTENSION (4) Type II diabetes mellitus Current Visit: Yes Status: Acute Assessment & Plan: - held metformin due to BRENDA- resume OP - start low-dose sliding scale insulin (5) Chewing tobacco nicotine dependence Current Visit: Yes Status: Acute Assessment & Plan: - start nicotine 21 mg patch for cravings while in hospital - Advised cessation Code(s): F17.220 - NICOTINE DEPENDENCE, CHEWING TOBACCO, UNCOMPLICATED (6) CAD (coronary artery disease) Current Visit: Yes Status: Acute Assessment & Plan: - continue ASA 325, Coreg 12.5 BID - continue home Pravachol 40; with h/o known CAD, would be better with high- potency statin, but this might have been limited by interactions with his psych medications. Code(s): I25.10 - ATHSCL HEART DISEASE OF [place] CORONARY ARTERY W/O ANG PCTRS (7) BPH (benign prostatic hyperplasia) Current Visit: Yes Status: Acute Assessment & Plan: - continue home tamsulosin 0.4, finasteride 5 Code(s): N40.0 - BENIGN PROSTATIC HYPERPLASIA WITHOUT LOWER URINRY TRACT SYMP (8) Bipolar 1 disorder Current Visit: Yes Status: Acute Assessment & Plan: - continue home regimen of Celexa 40 daily, Effexor 150 daily, and Olanzapine 10 qHS Code(s): F31.9 - BIPOLAR DISORDER, UNSPECIFIED (9) Acute renal injury Current Visit: Yes Status: Acute Assessment & Plan: - held losaran, HCTZ (and metformin) - UA negative - NS at 50 ml/hr - Labs improved - Renal U/S: Impression: Nonobstructing left renal micro-calculus/calcification. Remaining renal sonogram negative. Code(s): N17.9 - ACUTE KIDNEY FAILURE, UNSPECIFIED - Discharge Discharge Date: 06/27/23 Disposition: Home, Self-Care Condition: Stable Prescriptions: Continue Finasteride 5 mg [Proscar 5 MG] 5 mg PO DAILY Losartan Potassium 50 mg PO DAILY Hydrochlorothiazide 25 mg [hydroDIURIL 25 MG] 25 mg PO DAILY Amitriptyline HCl 10 mg [Elavil 10 mg] 25 mg PO HS Aspirin EC 325 mg [Ecotrin 325 MG] 325 mg PO DAILY Carvedilol 12.5 mg [Coreg 12.5 mg] 12.5 mg PO BID Tamsulosin HCl 0.4 mg [Flomax 0.4 MG] 0.4 mg PO DAILY Pravastatin Sodium 40 mg PO DAILY Pramipexole Di-HCl [Pramipexole Dihydrochloride] 0.5 mg PO BID Citalopram Hydrobromide 20 mg* [ceLEXa 20 MG] 40 mg PO DAILY gemfibroziL [Gemfibrozil] 600 mg PO DAILY Venlafaxine HCl [Venlafaxine HCl ER] 150 mg PO DAILY Metformin HCl 500 mg [Glucophage 500 MG] 500 mg PO DAILY Nitroglycerin 0.4 mg Tablet [Nitrostat 0.4 MG Tablet] 0.4 mg SL Q5MIN PRN MR X 3 PRN PRN Reason: CP Oxycodone HCl [Oxycodone HCl ER] 10 mg PO BID PRN PRN PRN Reason: Pain Temazepam 30 mg PO HS Budesonide/Formoterol Fumarate [Budesonide-Formoterol 160-4.5] 0 gm IH UD Pramipexole Di-HCl [Pramipexole Dihydrochloride] 0.5 mg PO BID Saw/Vit E/Sod Mariella/Lyc/Beta/Pyg [Prostate Health Caplet] 1 tab PO DAILY Vit C/E/Zn/Coppr/Lutein/Zeaxan [Preservision Areds 2 Chew Tab] 2 tab PO BID Omeprazole 40 mg PO DAILY Olanzapine [Olanzapine Odt] 10 mg PO HS Additional Instructions: Follow up with cardiology and urology as scheduled. Follow up with: TRACEY HOSKINS MD [Primary Care Provider] -
[2023-06-27] MEDS ORDERED: ELAVIL 10 MG PO SCH (22:00)
[2023-06-27] MEDS ORDERED: AMITRIPTYLINE 25 MG TABLET PO SCH (22:00)
[2023-06-27] MEDS ORDERED: Restoril 15 MG PO SCH (22:00)
[2023-06-27] MEDS ORDERED: Zyprexa Zydis 5 MG PO SCH (22:00)
[2023-06-27] MEDS ORDERED: NON-FORMULARY ITEM (Temazepam [Temazepam] 30 MG Capsule) PO SCH (22:00)
[2023-06-27] MEDS ORDERED: OLANZAPINE 10 MG PO SCH (22:00)
== END 2023-06-27 13:56 | disposition home or self-care (01) ==
LOC: ED 22:29 → MED SURG 06-27 00:44
PROVIDERS: ADMIT Internal Medicine; ATTEND Internal Medicine
DX: J44.1 Chronic obstructive pulmonary disease with (acute) exacerbation (principal); R07.9 Chest pain, unspecified; I10 Essential (primary) hypertension; E11.9 Type 2 diabetes mellitus without complications; F17.200 Nicotine dependence, unspecified, uncomplicated; I25.10 Atherosclerotic heart disease of native coronary artery without angina pectoris; N40.0 Benign prostatic hyperplasia without lower urinary tract symptoms; F31.9 Bipolar disorder, unspecified; E78.5 Hyperlipidemia, unspecified; N17.9 Acute kidney failure, unspecified; Z79.899 Other long term (current) drug therapy; Z20.828 Contact with and (suspected) exposure to other viral communicable diseases
CPT/HCPCS: 0241U; 36000; 36415; 71045; 76770; 80048; 80053; 80061; 81001; 82570; 82947; 83036; 83721; 83880; 84300; 84484; 85025; 87040; 93005; 93041; 94640; 94760; 94762; 96374; 93268; 99285; J0696; J1644; J2920; J2930; A9270-GY; G0378

== ENCOUNTER 2023-08-07 15:01 | Emergency (ER) | payer MEDICARE ==
[2023-08-07 15:24] VITALS: RESP 24; TEMP 96.9
[2023-08-07] MEDS ORDERED: TORAdol 30 mg Injection ONE (16:30)
[2023-08-07] MEDS: TORAdol 30 mg Injection IM ONE (16:31)
--- NOTE | 2023-08-07 16:36 | ERPHSYRPT ---
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 Patient states that he has a history of chronic low back pain. Patient advises that he has a known lumbar vertebral body fractures x3. Patient states his surgeon told him that the fractures are an operable. Patient reports that he was working in his shop. Patient was pushing and pulling. Patient felt a pop followed by acute onset pain of his low back. No lower extremity weakness. No change in bowel bladder function. No saddle anesthesia. No recent back procedures. No fever. Pain described as an ache that is localized. No radiation. Pain worse with movement and palpation. Pain improved with rest. Patient voices no other complaints or concerns at this time. Portions of this note were created with voice recognition technology. There may be grammatical, spelling, punctuation or sound alike errors Timing/Duration: today Method of Injury: other (Pushing and pulling in his shop) Quality: dull Back Pain Location: lumbar spine Severity of Pain-Max: moderate Severity of Pain-Current: mild Modifying Factors: Improves With: movement Associated Symptoms: denies symptoms Previous symptoms: same symptoms as today Allergies/Adverse Reactions: penicillin G Allergy (Mild, Verified 06/26/23 22:32) Hives meperidine [From Demerol] Adverse Reaction (Mild, Verified 06/26/23 22:32) Nausea and Vomiting Home Medications: Finasteride 5 mg [Proscar 5 MG] 5 mg PO DAILY 02/01/20 [History] Hydrochlorothiazide 25 mg [hydroDIURIL 25 MG] 25 mg PO DAILY 02/01/20 [History] Losartan Potassium 50 mg PO DAILY 02/01/20 [History] Amitriptyline HCl 10 mg [Elavil 10 mg] 25 mg PO HS 12/08/20 [History] Aspirin EC 325 mg [Ecotrin 325 MG] 325 mg PO DAILY 12/08/20 [History] Carvedilol 12.5 mg [Coreg 12.5 mg] 12.5 mg PO BID 12/08/20 [History] Citalopram Hydrobromide 20 mg* [ceLEXa 20 MG] 40 mg PO DAILY 01/09/23 [History] Metformin HCl 500 mg [Glucophage 500 MG] 500 mg PO DAILY 01/09/23 [History] Nitroglycerin 0.4 mg Tablet [Nitrostat 0.4 MG Tablet] 0.4 mg SL Q5MIN PRN MR X 3 PRN 01/09/23 [History] Pramipexole Di-HCl [Pramipexole Dihydrochloride] 0.5 mg PO BID 01/09/23 [History] Pravastatin Sodium 40 mg PO DAILY 01/09/23 [History] Tamsulosin HCl 0.4 mg [Flomax 0.4 MG] 0.4 mg PO DAILY 01/09/23 [History] Venlafaxine HCl [Venlafaxine HCl ER] 150 mg PO DAILY 01/09/23 [History] gemfibroziL [Gemfibrozil] 600 mg PO DAILY 01/09/23 [History] Budesonide/Formoterol Fumarate [Budesonide-Formoterol 160-4.5] 0 gm IH UD 05/07/23 [History] Oxycodone HCl [Oxycodone HCl ER] 10 mg PO BID PRN PRN 05/07/23 [History] Temazepam 30 mg PO HS 05/07/23 [History] Olanzapine [Olanzapine Odt] 10 mg PO HS 06/26/23 [History] Omeprazole 40 mg PO DAILY 06/26/23 [History] Pramipexole Di-HCl [Pramipexole Dihydrochloride] 0.5 mg PO BID 06/26/23 [History] Saw/Vit E/Sod Mariella/Lyc/Beta/Pyg [Prostate Health Caplet] 1 tab PO DAILY 06/26/23 [History] Vit C/E/Zn/Coppr/Lutein/Zeaxan [Preservision Areds 2 Chew Tab] 2 tab PO BID 06/26/23 [History] Hx Tetanus, Diphtheria Vaccination/Date Given: No Hx Influenza Vaccination/Date Given: Yes Hx Pneumococcal Vaccination/Date Given: Yes Immunizations Up to Date: No Travel Risk - International Travel Have you traveled outside of the country in past 3 weeks: No - Coronavirus Screening Are you exhibiting any of the following symptoms?: No Close contact with a COVID-19 positive Pt in past 14-21 Days: No - Vaccine Status Have you recieved a Covid-19 vaccination: Yes 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: [employer] - Vaccination Dates Date of 2cond Vaccination (if applicable): unknown - Review of Systems Constitutional: No Symptoms, No Fever, No Chills Eyes: No Symptoms Ears, Nose, & Throat: No Symptoms Respiratory: No Symptoms, No Cough, No Dyspnea Cardiac: No Symptoms, No Chest Pain, No Edema, No Syncope Abdominal/Gastrointestinal: No Symptoms, No Abdominal Pain, No Nausea, No Vomiting, No Diarrhea Genitourinary Symptoms: No Symptoms, No Dysuria Musculoskeletal: No Symptoms, No Back Pain, No Neck Pain Skin: No Symptoms, No Rash Neurological: No Symptoms, No Dizziness, No Focal Weakness, No Sensory Changes Psychological: No Symptoms Endocrine: No Symptoms Hematologic/Lymphatic: No Symptoms Immunological/Allergic: No Symptoms All Other Systems: Reviewed and Negative - Past Medical History Pertinent Past Medical History: Yes Neurological History: No Pertinent History, TIA ENT History: Cataracts Cardiac History: Coronary Artery Disease, High Cholesterol, Hypertension Respiratory History: COPD, Sleep Apnea Endocrine Medical History: Diabetes Type II Musculoskeletal History: Arthritis GI Medical History: GERD History: Other Psycho-Social History: Bipolar, Depression Male Reproductive Disorders: No Pertinent History Other Medical History: . - Past Surgical History Past Surgical History: Yes Neuro Surgical History: No Pertinent History Cardiac: Cardiac Catheterization, Cardiac Stent Respiratory: No Pertinent History Gastrointestinal: Appendectomy, Other Genitourinary: No Pertinent History Musculoskeletal: Orthopedic Surgery Male Surgical History: Other Other Surgical History: HYDROCELE REPAIR, spinal surgey, hip replacement x2, bilateral hand, total hip, GJ VAGOTOMY 1970, HEMORRHOIDECTOMY - Social History Smoking Status: Former smoker Exposure to second hand smoke: No Drug Use: none Patient Lives Alone: No Significant Family History: heart disease (mother, at advanced age), cancer (father and siblings) - Nursing Vital Signs Nursing Vital Signs: Initial Vital Signs Temperature 96.9 F 08/07/23 15:15 Pulse Rate 74 08/07/23 15:15 Respiratory Rate 24 08/07/23 15:15 Blood Pressure 157/88 08/07/23 15:15 O2 Sat by Pulse Oximetry 96 08/07/23 15:15 Pain Scale Pain Intensity [Lower Back] 10 Pain Intensity 6 - Physical Exam General Appearance: no apparent distress, alert Eye Exam: PERRL/EOMI, eyes nml inspection Neck Exam: normal inspection, non-tender, supple, full range of motion, No meningismus, No midline tenderness Respiratory Exam: normal breath sounds, lungs clear, No respiratory distress Cardiovascular Exam: regular rate/rhythm, normal heart sounds Gastrointestinal Exam: soft, No tenderness, No mass Extremity Exam: normal inspection, normal range of motion, No calf tenderness, No pedal edema Neurologic Exam: alert, 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, cooperative, 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 Stable osteopenia. T12 L3-L4 kyphoplasty and left hip arthroplasty) Ordered Tests: Active Orders 24 hr Category Date Time Status LUMBAR SPINE W/O [CT] Stat Exams 08/07/23 16:26 Taken UA W/RFX UR CULTURE Stat Lab 08/07/23 16:40 Completed Medication Summary Discontinued Medications Generic Name Dose Route Start Last Admin Trade Name Toby PRN Reason Stop Dose Admin Ketorolac Tromethamine 30 mg 08/07/23 16:27 08/07/23 16:31 Ketorolac Tromethamine 30 Mg/Ml Inj IM 08/07/23 16:28 30 mg STAT ONE Administration Ketorolac Tromethamine Confirm 08/07/23 16:30 Ketorolac Tromethamine 30 Mg/Ml Inj Administered 08/07/23 16:31 Dose 30 mg .ROUTE .STK-MED ONE Lab/Rad Data: Laboratory Results 08/07/23 Range/Units 16:40 Urine Color Yellow (Yellow) Urine Appearance Clear (Clear) Urine pH 5.0 (4.6-8.0) Ur Specific [place] 1.020 (1.005-1.030) Urine Protein Negative (Negative) Urine Glucose (UA) Negative (Negative) mg/dL Urine Ketones Negative (Negative) Urine Blood Negative (Negative) Urine Nitrite Negative (Negative) Urine Bilirubin Negative (Negative) Urine Urobilinogen 0.2 (0.2) mg/dL Ur Leukocyte Esterase Negative (Negative) U Hyaline Cast (Auto) NONE SEEN (0-2) /LPF Urine Microscopic RBC 0-2 (0-5) /HPF Urine Microscopic WBC 0-2 (0-5) /HPF Ur Epithelial Cells None Seen (None Seen) /HPF Urine Bacteria None Seen (None Seen) /HPF Urine Culture Reflexed NO (NO) - Progress Progress: improved Progress Note: 72-year-old male presents to our ED with acute onset back pain. Patient states he is aware that he has an existing 3 vertebrae fracture from his lumbar spine. Patient states he was working in his shop and felt a pop followed by sudden acute pain. Pain was localized. No radiation. Physical exam reveals tenderness to the lumbar spine at the midline near the level of T12 L1-L2. Overlying soft tissue intact. No signs of trauma. Patient left AGAINST MEDICAL ADVICE as there was a prolonged wait For the CAT scan report. This delay was due to technical difficulties. Prior to leaving AMA patient was reassessed. Pain in his back resolved. Patient left AMA as he states he had his family waiting in his vehicle including his 8-year-old granddaughter. Patient is of sound mind. Patient is appropriate to make informed and independent medical decisions. Patient understands that leaving AGAINST MEDICAL ADVICE can result in delayed diagnosis, increased risk of morbidity, mortality, short and long-term disability including . In spite of these risks, patient has decided to leave AGAINST MEDICAL ADVICE. Patient understands that he may return to our ED at any point if he reconsiders. Patient agrees to follow-up with his or her primary care doctor within 48 hours for reevaluation. Patient voices no other complaints or concerns at this time. We will release patient AGAINST MEDICAL ADVICE per their request. Complexity of problems addressed is moderate acute complicated Complexity of data reviewed and analyzed is moderate. Test ordered test reviewed and clinically correlated with history and physical examination. Urinalysis was analyzed as well as the findings on the CT lumbar spine. Risk complication and or risk morbidity/mortality of patient management is low. Patient left AGAINST MEDICAL ADVICE. No prescriptions provided. Vital stable. Patient left our ED before I could speak to him and before results became available. Portions of this note were created with voice recognition technology. There may be grammatical, spelling, punctuation or sound alike errors 08/07/23 18:55 Counseled pt/family regarding: diagnosis (Patient left AMA prior to discharge) - Departure Departure Disposition: AMA Clinical Impression: Back pain, L1 superior endplate fracture Condition: Stable Critical Care Time: No Referrals: TRACEY HOSKINS MD [Primary Care Provider] - Follow up/PCP as directed Additional Instructions: Discharge/Care Plan GILBERTO JO was seen on 08/07/23 in the Emergency Room. The patient was counseled regarding Diagnosis,Lab results, Imaging studies, need for follow up and when to return to the Emergency Room. Prescriptions given: Discharge Note I have spoken with the patient and/or caregivers. I have explained the patient's condition, diagnosis and treatment plan based on the information available to me at this time. I have answered the patient's and/or caregiver's questions and addressed any concerns. The patient and/or caregivers have as good understanding of the patient's diagnosis, condition and treatment plan as can be expected at this point. The vital signs have been stable. The patient's condition is stable and appropriate for discharge from the emergency department. The patient will pursue further outpatient evaluation with the primary care physician or other designated or consulting physician as outlined in the discharge instructions. The patient and/or caregivers are agreeable to this plan of care and follow-up instructions have been explained in detail. The patient and/or caregivers have received these instruction. The patient/and or caregivers are aware that any significant change in condition or worsening of symptoms should prompt an immediate return to this or the closest emergency department or call 911.
[2023-08-07 17:04] LABS: Appearance Clear (Clear); Bacteria None Seen /HPF (None Seen); Bilirubin Negative (Negative); Blood Negative (Negative); Epithelial Cells None Seen /HPF (None Seen); Glucose, Urine Negative (Negative); Hyaline Casts NONE SEEN /LPF (0-2); Ketones Negative (Negative); Leukocyte Esterase Negative (Negative); Nitrite Negative (Negative); Protein,Urine Dip Negative (Negative); RBC 0-2 /HPF (0-5); Urobilinogen 0.2 mg/dL (0.2); WBC 0-2 /HPF (0-5)
[2023-08-07 17:11] LABS: ADD URINE CULTURE? NO (NO)
[2023-08-07 18:24] VITALS: BP 147/94; PULSE 63
[2023-08-07 18:56] VITALS: O2SAT 97
--- NOTE | 2023-08-08 08:38 | XRAY ---
Indication: Pain. Multiple contiguous axial images obtained through the lumbar spine. Sagittal and coronal reformatted images obtained. Comparison: CT abdomen/pelvis January 09, 2023. Osseous structures remain demineralized. Stable T12/L3/L4 kyphoplasty, minimal broad-based L3-S1 disc bulge, bilateral L3-S1 degenerative facet arthropathy, and left total hip arthroplasty. Superior endplate L1 demonstrates new acute endplate fracture with approximately 25% height loss. No large disc herniation, spinal canal, or foraminal stenosis. Sagittal and coronal reformatted images demonstrate normal lumbar alignment. Disc spaces maintained. Visualized noncontrasted soft tissues again demonstrate mild scattered aortoiliac calcifications. Impression: 1. New L1 superior endplate fracture without spinal canal or foraminal stenosis. 2. Stable osteopenia, multilevel kyphoplasty, multilevel degenerative disc disease, and arteriosclerotic disease.
== END 2023-08-07 18:56 | disposition left against medical advice (07) ==
LOC: ED 15:01
DX: S32.018A Other fracture of first lumbar vertebra, initial encounter for closed fracture (principal); X50.0XXA Overexertion from strenuous movement or load, initial encounter; X50.3XXA Overexertion from repetitive movements, initial encounter; M54.50 Low back pain, unspecified; E78.5 Hyperlipidemia, unspecified; I10 Essential (primary) hypertension; E11.9 Type 2 diabetes mellitus without complications; Z79.84 Long term (current) use of oral hypoglycemic drugs; Z79.891 Long term (current) use of opiate analgesic; Z79.899 Other long term (current) drug therapy
CPT/HCPCS: 72131; 81001; 96372; 99284; J1885

== ENCOUNTER 2023-08-08 15:18 | Emergency (ER) | payer MEDICARE ==
--- NOTE | 2023-08-08 15:38 | ERPHSYRPT ---
- History of Present Illness Time Seen by Provider: 08/08/23 15:37 Historian: patient, family Exam Limitations: no limitations Allergies/Adverse Reactions: penicillin G Allergy (Mild, Verified 06/26/23 22:32) Hives meperidine [From Demerol] Adverse Reaction (Mild, Verified 06/26/23 22:32) Nausea and Vomiting Home Medications: Finasteride 5 mg [Proscar 5 MG] 5 mg PO DAILY 02/01/20 [History] Hydrochlorothiazide 25 mg [hydroDIURIL 25 MG] 25 mg PO DAILY 02/01/20 [History] Losartan Potassium 50 mg PO DAILY 02/01/20 [History] Amitriptyline HCl 10 mg [Elavil 10 mg] 25 mg PO HS 12/08/20 [History] Aspirin EC 325 mg [Ecotrin 325 MG] 325 mg PO DAILY 12/08/20 [History] Carvedilol 12.5 mg [Coreg 12.5 mg] 12.5 mg PO BID 12/08/20 [History] Citalopram Hydrobromide 20 mg* [ceLEXa 20 MG] 40 mg PO DAILY 01/09/23 [ History] Metformin HCl 500 mg [Glucophage 500 MG] 500 mg PO DAILY 01/09/23 [History] Nitroglycerin 0.4 mg Tablet [Nitrostat 0.4 MG Tablet] 0.4 mg SL Q5MIN PRN MR X 3 PRN 01/09/23 [History] Pramipexole Di-HCl [Pramipexole Dihydrochloride] 0.5 mg PO BID 01/09/23 [History] Pravastatin Sodium 40 mg PO DAILY 01/09/23 [History] Tamsulosin HCl 0.4 mg [Flomax 0.4 MG] 0.4 mg PO DAILY 01/09/23 [History] Venlafaxine HCl [Venlafaxine HCl ER] 150 mg PO DAILY 01/09/23 [History] gemfibroziL [Gemfibrozil] 600 mg PO DAILY 01/09/23 [History] Budesonide/Formoterol Fumarate [Budesonide-Formoterol 160-4.5] 0 gm IH UD 05/07/23 [History] Oxycodone HCl [Oxycodone HCl ER] 10 mg PO BID PRN PRN 05/07/23 [History] Temazepam 30 mg PO HS 05/07/23 [History] Olanzapine [Olanzapine Odt] 10 mg PO HS 06/26/23 [History] Omeprazole 40 mg PO DAILY 06/26/23 [History] Pramipexole Di-HCl [Pramipexole Dihydrochloride] 0.5 mg PO BID 06/26/23 [History] Saw/Vit E/Sod Mariella/Lyc/Beta/Pyg [Prostate Health Caplet] 1 tab PO DAILY 06/26/23 [History] Vit C/E/Zn/Coppr/Lutein/Zeaxan [Preservision Areds 2 Chew Tab] 2 tab PO BID 06/26/23 [History] Hx Tetanus, Diphtheria Vaccination/Date Given: No Hx Influenza Vaccination/Date Given: Yes Hx Pneumococcal Vaccination/Date Given: Yes Travel Risk - Vaccine Status Have you recieved a Covid-19 vaccination: Yes [employer]: [employer] - Vaccination Dates Date of 2cond Vaccination (if applicable): unknown - Past Medical History Pertinent Past Medical History: Yes Neurological History: No Pertinent History, TIA ENT History: Cataracts Cardiac History: Coronary Artery Disease, High Cholesterol, Hypertension Respiratory History: COPD, Sleep Apnea Endocrine Medical History: Diabetes Type II Musculoskeletal History: Arthritis GI Medical History: GERD History: Other Psycho-Social History: Bipolar, Depression Male Reproductive Disorders: No Pertinent History Other Medical History: . - Past Surgical History Past Surgical History: Yes Neuro Surgical History: No Pertinent History Cardiac: Cardiac Catheterization, Cardiac Stent Respiratory: No Pertinent History Gastrointestinal: Appendectomy, Other Genitourinary: No Pertinent History Musculoskeletal: Orthopedic Surgery Male Surgical History: Other Other Surgical History: HYDROCELE REPAIR, spinal surgey, hip replacement x2, bilateral hand, total hip, GJ VAGOTOMY 1970, HEMORRHOIDECTOMY - Social History Smoking Status: Former smoker Exposure to second hand smoke: No Drug Use: none Patient Lives Alone: No Significant Family History: heart disease (mother, at advanced age), cancer (father and siblings) - Departure Referrals: TRACEY HOSKINS MD [Primary Care Provider] - Follow up/PCP as directed
--- NOTE | 2023-08-08 15:39 | ERPHSYRPT ---
- History of Present Illness Time Seen by Provider: 08/08/23 15:37 Physician History: 72-year-old white male patient who was seen here in this emergency department on 08/07/2023 for same issue. That is, back pain in the lumbar spine region. Patient has known lumbar spine fracture. Patient has a history of chronic low back pain. Patient had a full work-up performed and on 08/07/[address] scan of the lumbar spine showed a new L1 superior endplate fracture with 25% height loss. There is no evidence of any aortic aneurysm on the CT scan study. Patient left AGAINST MEDICAL ADVICE yesterday because he had to take a grandchild back home. His pain is still stabbing and constant. Patient does not have any bowel or urinary incontinence. He has no saddle anesthesia. Patient denies any acute trauma. However, he was pushing and pulling heavy equipment the day before yesterday and felt pain in the lumbar region. Patient has a history of hypertension, hyperlipidemia, diabetes, gastroesophageal reflux disease, coronary artery disease, COPD and bipolar disorder. Timing/Duration: today, worse Method of Injury: other (Pushing and pulling but no fall or direct trauma to the area) Quality: sharp, stabbing Back Pain Location: lumbar spine Severity of Pain-Max: moderate Severity of Pain-Current: moderate Modifying Factors: Improves With: movement Associated Symptoms: lower back pain, muscle spasms, No urinary incontinence, No loss of bowel control, No constipation, No problems urinating, No numbness in le gs/feet, No sensory/motor loss, No tingling in legs/feet Previous symptoms: same symptoms as today, recently seen Allergies/Adverse Reactions: penicillin G Allergy (Mild, Verified 08/08/23 15:49) Hives meperidine [From Demerol] Adverse Reaction (Mild, Verified 08/08/23 15:49) Nausea and Vomiting Home Medications: Finasteride 5 mg [Proscar 5 MG] 5 mg PO DAILY 02/01/20 [History] Hydrochlorothiazide 25 mg [hydroDIURIL 25 MG] 25 mg PO DAILY 02/01/20 [History] Losartan Potassium 50 mg PO DAILY 02/01/20 [History] Amitriptyline HCl 10 mg [Elavil 10 mg] 25 mg PO HS 12/08/20 [History] Aspirin EC 325 mg [Ecotrin 325 MG] 325 mg PO DAILY 12/08/20 [History] Carvedilol 12.5 mg [Coreg 12.5 mg] 12.5 mg PO BID 12/08/20 [History] Citalopram Hydrobromide 20 mg* [ceLEXa 20 MG] 40 mg PO DAILY 01/09/23 [History] Metformin HCl 500 mg [Glucophage 500 MG] 500 mg PO DAILY 01/09/23 [History] Nitroglycerin 0.4 mg Tablet [Nitrostat 0.4 MG Tablet] 0.4 mg SL Q5MIN PRN MR X 3 PRN 01/09/23 [History] Pramipexole Di-HCl [Pramipexole Dihydrochloride] 0.5 mg PO BID 01/09/23 [History] Pravastatin Sodium 40 mg PO DAILY 01/09/23 [History] Tamsulosin HCl 0.4 mg [Flomax 0.4 MG] 0.4 mg PO DAILY 01/09/23 [History] Venlafaxine HCl [Venlafaxine HCl ER] 150 mg PO DAILY 01/09/23 [History] gemfibroziL [Gemfibrozil] 600 mg PO DAILY 01/09/23 [History] Budesonide/Formoterol Fumarate [Budesonide-Formoterol 160-4.5] 0 gm IH UD 05/07/23 [History] Oxycodone HCl [Oxycodone HCl ER] 10 mg PO BID PRN PRN 05/07/23 [History] Temazepam 30 mg PO HS 05/07/23 [History] Olanzapine [Olanzapine Odt] 10 mg PO HS 06/26/23 [History] Omeprazole 40 mg PO DAILY 06/26/23 [History] Pramipexole Di-HCl [Pramipexole Dihydrochloride] 0.5 mg PO BID 06/26/23 [History] Saw/Vit E/Sod Mariella/Lyc/Beta/Pyg [Prostate Health Caplet] 1 tab PO DAILY 06/26/23 [History] Vit C/E/Zn/Coppr/Lutein/Zeaxan [Preservision Areds 2 Chew Tab] 2 tab PO BID 06/26/23 [History] Hx Tetanus, Diphtheria Vaccination/Date Given: No Hx Influenza Vaccination/Date Given: Yes Hx Pneumococcal Vaccination/Date Given: Yes Travel Risk - International Travel Have you traveled outside of the country in past 3 weeks: No - Coronavirus Screening Are you exhibiting any of the following symptoms?: No Close contact with a COVID-19 positive Pt in past 14-21 Days: No - Vaccine Status Have you recieved a Covid-19 vaccination: Yes Organ Teacher: Moderna - Vaccination Dates Date of 2cond Vaccination (if applicable): unknown - Review of Systems Constitutional: No Symptoms Eyes: No Symptoms Ears, Nose, & Throat: No Symptoms Respiratory: No Symptoms Cardiac: No Symptoms Abdominal/Gastrointestinal: No Symptoms Genitourinary Symptoms: No Symptoms Musculoskeletal: Back Pain, No Fall, No Injury Skin: No Symptoms Neurological: No Symptoms Psychological: No Symptoms Endocrine: No Symptoms Hematologic/Lymphatic: No Symptoms Immunological/Allergic: No Symptoms All Other Systems: Reviewed and Negative - Past Medical History Pertinent Past Medical History: Yes Neurological History: No Pertinent History, TIA ENT History: Cataracts Cardiac History: Coronary Artery Disease, High Cholesterol, Hypertension Respiratory History: COPD, Sleep Apnea Endocrine Medical History: Diabetes Type II Musculoskeletal History: Arthritis GI Medical History: GERD History: Other Psycho-Social History: Bipolar, Depression Male Reproductive Disorders: No Pertinent History Other Medical History: . - Past Surgical History Past Surgical History: Yes Neuro Surgical History: No Pertinent History Cardiac: Cardiac Catheterization, Cardiac Stent Respiratory: No Pertinent History Gastrointestinal: Appendectomy, Other Genitourinary: No Pertinent History Musculoskeletal: Orthopedic Surgery Male Surgical History: Other Other Surgical History: HYDROCELE REPAIR, spinal surgey, hip replacement x2, bilateral hand, total hip, GJ VAGOTOMY 1970, HEMORRHOIDECTOMY - Social History Smoking Status: Former smoker Exposure to second hand smoke: No Drug Use: none Patient Lives Alone: No Significant Family History: heart disease (mother, at advanced age), cancer (father and siblings) - Nursing Vital Signs Nursing Vital Signs: Initial Vital Signs Temperature 97.7 F 08/08/23 15:41 Pulse Rate 75 08/08/23 15:41 Respiratory Rate 20 08/08/23 15:41 Blood Pressure 153/90 08/08/23 15:41 O2 Sat by Pulse Oximetry 94 L 08/08/23 15:41 Pain Scale Pain Intensity [Lower Back] 10 Pain Intensity 10 - Physical Exam General Appearance: no apparent distress, alert, anxiety Eye Exam: PERRL/EOMI, eyes nml inspection Ears, Nose, Throat Exam: normal ENT inspection, moist mucous membranes Neck Exam: normal inspection, non-tender, supple, full range of motion Respiratory Exam: No chest tenderness, No respiratory distress Gastrointestinal Exam: soft, No tenderness Rectal Exam: not done Back Exam: normal inspection, normal range of motion, vertebral tenderness (Lumbar region), No CVA tenderness, No muscle spasm Extremity Exam: normal inspection, normal range of motion, pelvis stable Neurologic Exam: alert, 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, cooperative, er tech II-XII nml as tested, normal mood/affect, nml cerebellar function, nml station & gait, sensation nml Skin Exam: normal color, warm, dry Lymphatic Exam: No adenopathy SpO2 Interpretation: normal O2 Delivery: Room Air - Course Nursing assessment & vital signs reviewed: Yes - Progress Progress: pain not gone completely, re-examined Progress Note: 08/08/23 16:45 This patient's medical work-up is of low complexity. The patient had extensive work-up yesterday, 08/07/2023 but left AMA. He is back today to obtain prescriptions to help control his pain as an outpatient. He drove himself into the emergency department. He cannot get a ride home. We will send a prescription for prednisone and Percocet remotely to his pharmacy 08/08/23 16:46 Counseled pt/family regarding: diagnosis, need for follow-up, rad results (I reviewed the radiographic study results from 08/07/2023 with the patient) Medical Desision Making - Diagnostic Testing Radiological Interpretation: Reviewed by me, Teleradiologist Report - Risk of complications The pt has a mod risk of morbidity or mortality based on: Need for prescription drug management - Departure Departure Disposition: Home Clinical Impression: Compression fx, lumbar spine Condition: Stable Critical Care Time: No Referrals: TRACEY HOSKINS MD [Primary Care Provider] - Follow up/PCP as directed Additional Instructions: Take your medications as prescribed. Call your primary care provider on 08/09/2023 to make an appointment for further evaluation and management includin g referral to a back specialist if indicated. Prescriptions: Oxycodone HCl/Acetaminophen [Percocet 5-325 mg Tablet] 1 each PO Q8H PRN PRN #6 tablet MDD 3 PRN Reason: Moderate To Severe Pain Prednisone 10 mg [Deltasone 10 mg] 10 mg PO TID #12 tablet
[2023-08-08 15:49] VITALS: PULSE 75; TEMP 97.7; O2SAT 94
[2023-08-08 16:44] VITALS: BP 116/80; RESP 18
== END 2023-08-08 17:04 | disposition home or self-care (01) ==
LOC: ED 15:18
DX: S32.010A Wedge compression fracture of first lumbar vertebra, initial encounter for closed fracture (principal); M54.50 Low back pain, unspecified; I10 Essential (primary) hypertension; E78.5 Hyperlipidemia, unspecified; E11.9 Type 2 diabetes mellitus without complications; Z79.52 Long term (current) use of systemic steroids; Z79.891 Long term (current) use of opiate analgesic; Z79.84 Long term (current) use of oral hypoglycemic drugs; Z79.899 Other long term (current) drug therapy
CPT/HCPCS: 99281

== ENCOUNTER 2023-08-10 16:55 | Emergency (ER) | payer MEDICARE ==
[2023-08-10 17:03] VITALS: TEMP 97
[2023-08-10] MEDS ORDERED: Hydromorphone 1 mg/ml Injection IM ONE (17:04)
--- NOTE | 2023-08-10 17:04 | ERPHSYRPT ---
- History of Present Illness Time Seen by Provider: 08/10/23 17:03 Source: patient Exam Limitations: no limitations Patient Subjective Stated Complaint: Pt reports he was seen approx two days ago for a fx in his back. States pain is so bad he can't get up. Also reports today he hasn't taken any of the pain medicine he was given because it makes him nauseated. Triage Nursing Assessment: Pt alert and oriented x3. No apparent respiratory distress. Transferred from EMS cot to ED cot by EMS staff. Skin w/p/d. Pt denies any numbness/tingling in lower extremities. Pt denies any new incontinence with bowel/bladder. Rates pain 08/07. Physician History: This is a 72-year-old white male patient who has been seen in our emergency department for the same issue on 08/07/2023, 08/08/2023 and 08/10/2023. He has been diagnosed with an L1 superior endplate fracture with approximate 25% height loss without spinal canal or foraminal stenosis. On the first visit, 08/07/2023, patient left AMA. He returned on 08/08/2023 because of his persistent pain. He did not receive any prescriptions so the patient received, on 08/08/2023, prescription for Percocet and prednisone. Patient returns today because he states that the Percocet is causing him to have nausea so he did not take any pain medicine today. Patient has chronic low back pain. He has no bowel or urinary incontinence. He has no saddle anesthesia. He does have a history of hypertension, hyperlipidemia, diabetes, gastroesophageal reflux disease, coronary disease, COPD, and bipolar disorder. There has been no new fall or acute trauma to his back Timing/Duration: day(s), worse (Because the patient has not effectively taking his medication.) Method of Injury: prior injury, other (No new injury) Quality: sharp, stabbing Back Pain Location: lumbar spine Severity of Pain-Max: moderate Severity of Pain-Current: moderate Associated Symptoms: lower back pain, muscle spasms, No urinary incontinence, No loss of bowel control, No numbness in legs/feet, No sensory/motor loss Previous symptoms: same symptoms as today, recently seen, recently treated Allergies/Adverse Reactions: penicillin G Allergy (Mild, Verified 08/10/23 17:00) Hives meperidine [From Demerol] Adverse Reaction (Mild, Verified 08/10/23 17:00) Nausea and Vomiting Home Medications: Finasteride 5 mg [Proscar 5 MG] 5 mg PO DAILY 02/01/20 [History] Hydrochlorothiazide 25 mg [hydroDIURIL 25 MG] 25 mg PO DAILY 02/01/20 [History] Losartan Potassium 50 mg PO DAILY 02/01/20 [History] Amitriptyline HCl 10 mg [Elavil 10 mg] 25 mg PO HS 12/08/20 [History] Aspirin EC 325 mg [Ecotrin 325 MG] 325 mg PO DAILY 12/08/20 [History] Carvedilol 12.5 mg [Coreg 12.5 mg] 12.5 mg PO BID 12/08/20 [History] Citalopram Hydrobromide 20 mg* [ceLEXa 20 MG] 40 mg PO DAILY 01/09/23 [History] Metformin HCl 500 mg [Glucophage 500 MG] 500 mg PO DAILY 01/09/23 [History] Nitroglycerin 0.4 mg Tablet [Nitrostat 0.4 MG Tablet] 0.4 mg SL Q5MIN PRN MR X 3 PRN 01/09/23 [History] Pramipexole Di-HCl [Pramipexole Dihydrochloride] 0.5 mg PO BID 01/09/23 [History] Pravastatin Sodium 40 mg PO DAILY 01/09/23 [History] Tamsulosin HCl 0.4 mg [Flomax 0.4 MG] 0.4 mg PO DAILY 01/09/23 [History] Venlafaxine HCl [Venlafaxine HCl ER] 150 mg PO DAILY 01/09/23 [History] gemfibroziL [Gemfibrozil] 600 mg PO DAILY 01/09/23 [History] Budesonide/Formoterol Fumarate [Budesonide-Formoterol 160-4.5] 0 gm IH UD 05/07/23 [History] Oxycodone HCl [Oxycodone HCl ER] 10 mg PO BID PRN PRN 05/07/23 [History] Temazepam 30 mg PO HS 05/07/23 [History] Olanzapine [Olanzapine Odt] 10 mg PO HS 06/26/23 [History] Omeprazole 40 mg PO DAILY 06/26/23 [History] Pramipexole Di-HCl [Pramipexole Dihydrochloride] 0.5 mg PO BID 06/26/23 [Histor y] Saw/Vit E/Sod Mariella/Lyc/Beta/Pyg [Prostate Health Caplet] 1 tab PO DAILY 06/26/23 [History] Vit C/E/Zn/Coppr/Lutein/Zeaxan [Preservision Areds 2 Chew Tab] 2 tab PO BID 06/26/23 [History] Hx Tetanus, Diphtheria Vaccination/Date Given: No Hx Influenza Vaccination/Date Given: Yes Hx Pneumococcal Vaccination/Date Given: Yes Travel Risk - International Travel Have you traveled outside of the country in past 3 weeks: No - Coronavirus Screening Are you exhibiting any of the following symptoms?: No Close contact with a COVID-19 positive Pt in past 14-21 Days: No - Vaccine Status Have you recieved a Covid-19 vaccination: Yes Sanitation Technician: Moderna - Vaccination Dates Date of 2cond Vaccination (if applicable): unknown - Review of Systems Constitutional: No Symptoms Eyes: No Symptoms Ears, Nose, & Throat: No Symptoms Respiratory: No Symptoms Cardiac: No Symptoms Abdominal/Gastrointestinal: No Symptoms Genitourinary Symptoms: No Symptoms Musculoskeletal: Back Pain (Known L1), Injury (Lumbar spine) Skin: No Symptoms Neurological: No Symptoms Psychological: No Symptoms Endocrine: No Symptoms Hematologic/Lymphatic: No Symptoms Immunological/Allergic: No Symptoms All Other Systems: Reviewed and Negative - Past Medical History Pertinent Past Medical History: Yes Neurological History: No Pertinent History, TIA ENT History: Cataracts Cardiac History: Coronary Artery Disease, High Cholesterol, Hypertension Respiratory History: COPD, Sleep Apnea Endocrine Medical History: Diabetes Type II Musculoskeletal History: Arthritis GI Medical History: GERD History: Other Psycho-Social History: Bipolar, Depression Male Reproductive Disorders: No Pertinent History Other Medical History: . - Past Surgical History Past Surgical History: Yes Neuro Surgical History: No Pertinent History Cardiac: Cardiac Catheterization, Cardiac Stent Respiratory: No Pertinent History Gastrointestinal: Appendectomy, Other Genitourinary: No Pertinent History Musculoskeletal: Orthopedic Surgery Male Surgical History: Other Other Surgical History: HYDROCELE REPAIR, spinal surgey, hip replacement x2, bilateral hand, total hip, GJ VAGOTOMY 1970, HEMORRHOIDECTOMY - Social History Smoking Status: Former smoker Exposure to second hand smoke: No Drug Use: none Patient Lives Alone: No Significant Family History: heart disease (mother, at advanced age), cancer (father and siblings) - Nursing Vital Signs Nursing Vital Signs: Initial Vital Signs Temperature 97 F 08/10/23 16:56 Pulse Rate 72 08/10/23 16:56 Respiratory Rate 19 08/10/23 16:56 Blood Pressure 172/77 08/10/23 16:56 O2 Sat by Pulse Oximetry 95 08/10/23 16:56 Pain Scale Pain Intensity [Lower Back] 10 Pain Intensity 10 - Physical Exam General Appearance: no apparent distress, alert, anxiety Eye Exam: PERRL/EOMI, eyes nml inspection Ears, Nose, Throat Exam: normal ENT inspection, moist mucous membranes Neck Exam: normal inspection, non-tender, supple, full range of motion Respiratory Exam: airway intact, No chest tenderness, No respiratory distress Cardiovascular Exam: regular rate/rhythm, normal heart sounds, normal peripheral pulses Gastrointestinal Exam: No tenderness Rectal Exam: not done Back Exam: vertebral tenderness (Lumbar spine region), muscle spasm (Lumbar spine region), No CVA tenderness Extremity Exam: normal inspection, normal range of motion, pelvis stable Neurologic Exam: alert, 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, cooperative, structural engineer II-XII nml as tested, normal mood/affect, nml cerebellar function, nml station & gait, sensation nml Skin Exam: normal color, warm, dry Lymphatic Exam: No adenopathy SpO2 Interpretation: normal SpO2: 95 O2 Delivery: Room Air - Course Nursing assessment & vital signs reviewed: Yes Ordered Tests: Medication Summary Discontinued Medications Generic Name Dose Route Start Last Admin Trade Name Solomonq PRN Reason Stop Dose Admin Methylprednisolone Sodium 0 mg 08/10/23 17:05 Succinate 125 mg/ Sterile IM 08/10/23 17:06 Water 2 ml STAT ONE Hydromorphone HCl 0.5 mg 08/10/23 17:04 Hydromorphone 1 Mg/1ml Inj IM 08/10/23 17:05 STAT ONE Ondansetron HCl 4 mg 08/10/23 17:05 Zofran 4 Mg/Udtablet Orally Disintegrating PO 08/10/23 17:06 STAT ONE Orphenadrine Citrate 60 mg 08/10/23 17:05 Orphenadrine Citrate 60 Mg/2 Ml Vial IM 08/10/23 17:06 STAT ONE - Progress Progress: improved, pain not gone completely, re-examined Progress Note: 08/10/23 17:19 This patient's medical issue is 1 of low complexity. Level complexity the work- up performed is based on review of the patient's past medical history, review of the patient's medication list, review the patient's drug allergy list, history of present illness and physical findings on examination. Work-up in this patient does not require laboratory radiographic studies. Is simply to control his pain as best as possible. Counseled pt/family regarding: diagnosis, need for follow-up Medical Desision Making - Diagnostic Testing Diagnostic test were ordered, analyzed, and reviewed by me: No - Risk of complications The pt has a mod risk of morbidity or mortality based on: Need for prescription drug management - Departure Departure Disposition: Home Clinical Impression: Fracture of lumbar spine Condition: Stable Critical Care Time: No Referrals: TRACEY HOSKINS MD [Primary Care Provider] - Follow up/PCP as directed Additional Instructions: Take your medication as prescribed. Call your primary care provider on 08/13/2023 to make arrangements for follow-up appointment and referral to a pain specialist as well as back specialist for further evaluation management. Finish your 10 mg prednisone before starting your 5 mg prednisone. Prescriptions: Ondansetron ODT 4 MG [Zofran Odt 4 mg] 4 mg PO Q6H PRN PRN #10 tablet PRN Reason: Vomiting
[2023-08-10] MEDS ORDERED: Norflex 60 MG/2 ML IM ONE (17:05)
[2023-08-10] MEDS ORDERED: ZOFRAN ODT 4 MG PO ONE (17:05)
[2023-08-10] MEDS ORDERED: solu-MEDROL 125 MG, Sterile H2O 10 ml 2 ML IM ONE ×2 (17:05)
[2023-08-10] MEDS ORDERED: ZOFRAN ODT 4 MG ONE (17:18)
[2023-08-10] MEDS ORDERED: Norflex 60 MG/2 ML ONE (17:18)
[2023-08-10] MEDS ORDERED: Sterile H2O 10 ml IJ ONE (17:18)
[2023-08-10] MEDS ORDERED: Hydromorphone 1 mg/ml Injection ONE (17:19)
[2023-08-10] MEDS ORDERED: solu-MEDROL ONE (17:19)
[2023-08-10 18:01] VITALS: BP 132/87; PULSE 81; RESP 21; O2SAT 94
== END 2023-08-10 18:07 | disposition home or self-care (01) ==
LOC: ED 16:55
DX: S32.018D Other fracture of first lumbar vertebra, subsequent encounter for fracture with routine healing (principal); I10 Essential (primary) hypertension; E78.5 Hyperlipidemia, unspecified; E11.9 Type 2 diabetes mellitus without complications; Z79.891 Long term (current) use of opiate analgesic; Z79.84 Long term (current) use of oral hypoglycemic drugs; Z79.899 Other long term (current) drug therapy
CPT/HCPCS: 96372; 99283; J1170; J2360; J2930; Q0162

== ENCOUNTER 2023-09-23 16:08 | Emergency (ER) | payer MEDICARE ==
[2023-09-23 16:52] VITALS: RESP 18; TEMP 97.4
[2023-09-23] MEDS ORDERED: Sodium Chloride 0.9% 1000 ML 1,000 ML IV STA (17:24)
[2023-09-23] MEDS ORDERED: Zofran 4 MG/2 ML VIAL IV ONE (17:24)
--- NOTE | 2023-09-23 17:26 | ERPHSYRPT ---
- History of Present Illness Time Seen by Provider: 09/23/23 17:00 Patient Subjective Stated Complaint: pt here for vomiting and loose stool since sunday, no fever Triage Nursing Assessment: pt alert, resp easy, skin w/d/p, no cough,and soft,moves all ext well Physician History: 72 years old male with past medical history of hypertension, presenting the emergency room complaining of nausea vomiting and dry heaving for the last 2 days. He is also having loose bowel movement. He is denying any abdominal pain he is having the chills, he denies any urinary symptoms. The patient is requesting something to help him with the nausea and the dry heaves. Allergies/Adverse Reactions: penicillin G Allergy (Mild, Verified 09/23/23 16:46) Hives meperidine [From Demerol] Adverse Reaction (Mild, Verified 09/23/23 16:46) Nausea and Vomiting Home Medications: Finasteride 5 mg [Proscar 5 MG] 5 mg PO DAILY 02/01/20 [History] Hydrochlorothiazide 25 mg [hydroDIURIL 25 MG] 25 mg PO DAILY 02/01/20 [History] Losartan Potassium 50 mg PO DAILY 02/01/20 [History] Amitriptyline HCl 10 mg [Elavil 10 mg] 25 mg PO HS 12/08/20 [History] Aspirin EC 325 mg [Ecotrin 325 MG] 325 mg PO DAILY 12/08/20 [History] Carvedilol 12.5 mg [Coreg 12.5 mg] 12.5 mg PO BID 12/08/20 [History] Citalopram Hydrobromide 20 mg* [ceLEXa 20 MG] 40 mg PO DAILY 01/09/23 [History] Metformin HCl 500 mg [Glucophage 500 MG] 500 mg PO DAILY 01/09/23 [History] Nitroglycerin 0.4 mg Tablet [Nitrostat 0.4 MG Tablet] 0.4 mg SL Q5MIN PRN MR X 3 PRN 01/09/23 [History] Pramipexole Di-HCl [Pramipexole Dihydrochloride] 0.5 mg PO BID 01/09/23 [History] Pravastatin Sodium 40 mg PO DAILY 01/09/23 [History] Tamsulosin HCl 0.4 mg [Flomax 0.4 MG] 0.4 mg PO DAILY 01/09/23 [History] Venlafaxine HCl [Venlafaxine HCl ER] 150 mg PO DAILY 01/09/23 [History] gemfibroziL [Gemfibrozil] 600 mg PO DAILY 01/09/23 [History] Budesonide/Formoterol Fumarate [Budesonide-Formoterol 160-4.5] 0 gm IH UD 05/07/23 [History] Temazepam 30 mg PO HS 05/07/23 [History] Olanzapine [Olanzapine Odt] 10 mg PO HS 06/26/23 [History] Omeprazole 40 mg PO DAILY 06/26/23 [History] Saw/Vit E/Sod Mariella/Lyc/Beta/Pyg [Prostate Health Caplet] 1 tab PO DAILY 06/26/23 [History] Vit C/E/Zn/Coppr/Lutein/Zeaxan [Preservision Areds 2 Chew Tab] 2 tab PO BID 06/26/23 [History] Hx Tetanus, Diphtheria Vaccination/Date Given: No Hx Influenza Vaccination/Date Given: Yes Hx Pneumococcal Vaccination/Date Given: Yes Immunizations Up to Date: Yes Travel Risk - International Travel Have you traveled outside of the country in past 3 weeks: No - Coronavirus Screening Are you exhibiting any of the following symptoms?: Yes Symptoms: Vomiting/Diarrhea Close contact with a COVID-19 positive Pt in past 14-21 Days: No - Vaccine Status Have you recieved a Covid-19 vaccination: Yes [employer]: Unknown - Vaccination Dates Date of 2cond Vaccination (if applicable): unknown Dates if Unknown: ? - Review of Systems Constitutional: No Fever, No Chills Eyes: No Symptoms Ears, Nose, & Throat: No Symptoms Respiratory: No Cough, No Dyspnea Cardiac: No Chest Pain, No Edema, No Syncope Abdominal/Gastrointestinal: Nausea, Vomiting, Diarrhea, No Abdominal Pain Genitourinary Symptoms: No Dysuria Musculoskeletal: No Back Pain, No Neck Pain Skin: No Rash Neurological: No Dizziness, No Focal Weakness, No Sensory Changes Psychological: No Symptoms Endocrine: No Symptoms All Other Systems: Reviewed and Negative - Past Medical History Pertinent Past Medical History: Yes Neurological History: No Pertinent History, TIA ENT History: Cataracts Cardiac History: Coronary Artery Disease, High Cholesterol, Hypertension Respiratory History: COPD, Sleep Apnea Endocrine Medical History: Diabetes Type II Musculoskeletal History: Arthritis GI Medical History: GERD History: Other Psycho-Social History: Bipolar, Depression Male Reproductive Disorders: No Pertinent History Other Medical History: . - Past Surgical History Past Surgical History: Yes Neuro Surgical History: No Pertinent History Cardiac: Cardiac Catheterization, Cardiac Stent Respiratory: No Pertinent History Gastrointestinal: Appendectomy, Other Genitourinary: No Pertinent History Musculoskeletal: Orthopedic Surgery Male Surgical History: Other Other Surgical History: HYDROCELE REPAIR, spinal surgey, hip replacement x2, b ilateral hand, total hip, GJ VAGOTOMY 1969, HEMORRHOIDECTOMY - Social History Smoking Status: Former smoker Exposure to second hand smoke: No Drug Use: none Patient Lives Alone: No Significant Family History: heart disease (mother, at advanced age), cancer (fat her and siblings) - Nursing Vital Signs Nursing Vital Signs: Initial Vital Signs Temperature 97.4 F 09/23/23 16:51 Pulse Rate 93 H 09/23/23 16:51 Respiratory Rate 18 09/23/23 16:51 Blood Pressure 134/77 09/23/23 16:51 Pain Scale Pain Intensity 4 - Physical Exam General Appearance: no apparent distress, alert Eye Exam: PERRL/EOMI, eyes nml inspection Ears, Nose, Throat Exam: normal ENT inspection, pharynx normal, moist mucous membranes Neck Exam: normal inspection, non-tender, supple, full range of motion Respiratory Exam: normal breath sounds, lungs clear, No respiratory distress Cardiovascular Exam: regular rate/rhythm, normal heart sounds Gastrointestinal/Abdomen Exam: soft, normal bowel sounds, No tenderness, No mass, No guarding, No rebound, No hernia Back Exam: normal inspection, normal range of motion, No CVA tenderness, No vertebral tenderness Extremity Exam: normal inspection, normal range of motion, pelvis stable Neurologic Exam: alert, 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, cooperative, normal mood/affect, nml cerebellar function, sensation nml, No motor deficits Skin Exam: normal color, warm, dry - Course Nursing assessment & vital signs reviewed: Yes Ordered Tests: Active Orders 24 hr Category Date Time Status CBC W DIFF Stat Lab 09/23/23 17:45 Completed CMP Stat Lab 09/23/23 17:45 Completed LIPASE Stat Lab 09/23/23 17:45 Completed UA W/RFX UR CULTURE Stat Lab 09/23/23 19:12 Completed Medication Summary Discontinued Medications Generic Name Dose Route Start Last Admin Trade Name Toby PRN Reason Stop Dose Admin Sodium Chloride 1,000 mls @ 999 mls/hr 09/23/23 17:24 09/23/23 18:51 Sodium Chloride 0.9% 1000 Ml IV 09/23/23 18:24 Infused .Q1H1M STA Infusion Sodium Chloride Confirm 09/23/23 17:28 Sodium Chloride 0.9% 1000 Ml Administered 09/23/23 17:29 Dose 1,000 mls @ ud .ROUTE .STK-MED ONE Ondansetron HCl 4 mg 09/23/23 17:24 09/23/23 17:32 Ondansetron Hcl 4 Mg/2 Ml Vial IV 09/23/23 17:25 4 mg STAT ONE Administration Ondansetron HCl Confirm 09/23/23 17:28 Ondansetron Hcl 4 Mg/2 Ml Vial Administered 09/23/23 17:29 Dose 4 mg .ROUTE .STK-MED ONE Prochlorperazine Edisylate 5 mg 09/23/23 18:26 09/23/23 18:34 Prochlorperazine Edisylate 10 Mg/2 Ml Vial IV 09/23/23 18:27 5 mg STAT ONE Administration Prochlorperazine Edisylate Confirm 09/23/23 18:33 Prochlorperazine Edisylate 10 Mg/2 Ml Vial Administered 09/23/23 18:34 Dose 10 mg .ROUTE .STK-MED ONE Lab/Rad Data: Laboratory Result Diagrams 09/23/23 17:45 09/23/23 17:45 Laboratory Results 09/23/23 09/23/23 09/23/23 Range/Units 19:12 17:45 17:45 WBC 7.1 (4.0-10.5) x10^3/uL RBC 4.20 (4.1-5.6) x10^6/uL Hgb 12.2 L (12.5-18.0) g/dL Hct 37.6 L (42-50) % MCV 89.5 (78-100) fL MCH 29.0 (26-32) pg MCHC 32.4 (32-36) g/dL RDW 13.8 (11.5-14.0) % Plt Count 251 (150-450) x10^3/uL MPV 9.5 (7.5-11.0) fL Gran % 70.5 H (36.0-66.0) % Immature Gran % (Auto) 0.6 H (0.00-0.4) % Nucleat RBC Rel Count 0.0 (0.00-0.1) % Eos # (Auto) 0.01 (0-0.5) x10^3/uL Immature Gran # (Auto) 0.04 H (0.00-0.03) x10^3u/L Absolute Lymphs (auto) 1.52 (1.0-4.6) x10^3/uL Absolute Monos (auto) 0.49 (0.0-1.3) x10^3/uL Absolute Nucleated RBC 0.00 (0.00-0.01) x10^3u/L Lymphocytes % 21.3 L (24.0-44.0) % Monocytes % 6.9 (0.0-12.0) % Eosinophils % 0.1 (0.00-5.0) % Basophils % 0.6 (0.0-0.4) % Absolute Granulocytes 5.03 (1.4-6.9) x10^3/uL Basophils # 0.04 (0-0.4) x10^3/uL Sodium 133 L (137-145) mmol/L Potassium 3.3 L (3.5-5.1) mmol/L Chloride 103 (98-107) mmol/L Carbon Dioxide 24 (22-30) mmol/L Anion Gap 9.4 (5-15) MEQ/L BUN 20 (9-20) mg/dL Creatinine 0.98 (0.66-1.25) mg/dL Estimated GFR 80.9 ML/MIN Glucose 106 (74-106) mg/dL Calcium 9.5 (8.4-10.2) mg/dL Total Bilirubin 1.40 H (0.2-1.3) mg/dL AST 25 (17-59) U/L ALT 22 (0-50) U/L Alkaline Phosphatase 119 (38-126) U/L Serum Total Protein 7.0 (6.3-8.2) g/dL Albumin 3.9 (3.5-5.0) g/dL Lipase 43 (23-300) U/L Urine Color Yellow (Yellow) Urine Appearance Clear (Clear) Urine pH 5.5 (4.6-8.0) Ur Specific [place] 1.020 (1.005-1.030) Urine Protein Trace A (Negative) Urine Glucose (UA) Negative (Negative) mg/dL Urine Ketones 15 A (Negative) Urine Blood Negative (Negative) Urine Nitrite Negative (Negative) Urine Bilirubin Negative (Negative) Urine Urobilinogen 0.2 (0.2) mg/dL Ur Leukocyte Esterase Negative (Negative) U Hyaline Cast (Auto) NONE SEEN (0-2) /LPF Urine Microscopic RBC 0-2 (0-5) /HPF Urine Microscopic WBC 0-2 (0-5) /HPF Ur Epithelial Cells None Seen (None Seen) /HPF Urine Bacteria None Seen (None Seen) /HPF Urine Culture Reflexed NO (NO) - Progress Progress Note: 72 years old male with past medical history of hypertension, presenting the emergency room complaining of nausea vomiting and dry heaving for the last 2 days. Is also having loose bowel movement. He is denying any abdominal pain he is having the chills, he denies any urinary symptoms. The patient is requesting something to help him with the nausea and the dry heaves. Emergency room course and medical decision making Will check CBC, CMP, lipase, UA. The patient be treated with IV Zofran and IV fluid. Emergency room course and medical decision making. 09/23/23 17:22 The patient's workup is essentially negative normal CBC, his potassium is at 3.3, small ketones in the urine. He is receiving IV fluid, he believes that the Zofran did not seem to help a lot with his nausea. He will be given Compazine 5 mg IV 09/23/23 20:00 The patient is feeling much better claiming that his nausea is completely resolved, he is requesting to go home. He will be discharged home. He will be given a prescription for Compazine 5 mg tablet every 6 hours as needed for nausea and or vomiting. Soft diet Follow-up with his family physician in 2 to 3 days. Follow-up as needed for any worsening symptoms. - Departure Departure Disposition: Home Clinical Impression: Nausea and vomiting in adult patient Condition: Stable Critical Care Time: No Referrals: TRACEY HOSKINS MD [Primary Care Provider] - Follow up/PCP as directed Prescriptions: Prochlorperazine Maleate 5 mg* [Compazine 5 MG] 5 mg PO Q6H #12 tablet
[2023-09-23] MEDS ORDERED: Zofran 4 MG/2 ML VIAL ONE (17:28)
[2023-09-23] MEDS ORDERED: Sodium Chloride 0.9% 1000 ML 1,000 ML ONE (17:28)
[2023-09-23 17:48] LABS: Absolute Neutrophil Ct (ANC) 5.03 x10^3/uL (1.4-6.9); BASOPHIL % 0.6 % (0.0-0.4); Basophil (Absolute #) 0.04 x10^3/uL (0-0.4); Eosinophil % 0.1 % (0.00-5.0); Eosinophil (Absolute #) 0.01 x10^3/uL (0-0.5); Hematocrit 37.6 % (42-50); Hemoglobin 12.2 g/dL (12.5-18.0); IMMATURE GRAN # 0.04 x10^3u/L (0.00-0.03); IMMATURE GRAN % 0.6 % (0.00-0.4); Lymphocyte (Absolute #) 1.52 x10^3/uL (1.0-4.6); Lymphocytes % 21.3 % (24.0-44.0); Mean Cell Volume 89.5 fL (78-100); Mean Corpuscular Hgb Concent. 32.4 g/dL (32-36); Mean Platelet Volume 9.5 fL (7.5-11.0); Monocyte (Absolute #) 0.49 x10^3/uL (0.0-1.3); Monocytes % 6.9 % (0.0-12.0); Neutrophil % 70.5 % (36.0-66.0); Platelet Count 251 x10^3/uL (150-450); Red Cell Distribution Width 13.8 % (11.5-14.0); White Blood Count 7.1 x10^3/uL (4.0-10.5)
[2023-09-23 18:02] LABS: ALBUMIN 3.9 g/dL (3.5-5.0); ANION GAP 9.4 MEQ/L (5-15); BILIRUBIN,TOTAL 1.4 mg/dL (0.2-1.3); Calcium 9.5 mg/dL (8.4-10.2); Creatinine 1 0.98 mg/dL (0.66-1.25); EST GLOMERULAR FILTRATION RATE 80.9 ML/MIN; Potassium 3.3 mmol/L (3.5-5.1)
[2023-09-23] MEDS ORDERED: Compazine 10 MG/2 ML IV ONE (18:26)
[2023-09-23] MEDS ORDERED: Compazine 10 MG/2 ML ONE (18:33)
[2023-09-23 18:45] VITALS: BP 152/67; O2SAT 99
[2023-09-23 18:46] VITALS: PULSE 87
[2023-09-23 19:45] LABS: Appearance Clear (Clear); Bacteria None Seen /HPF (None Seen); Bilirubin Negative (Negative); Blood Negative (Negative); Epithelial Cells None Seen /HPF (None Seen); Glucose, Urine Negative (Negative); Hyaline Casts NONE SEEN /LPF (0-2); Ketones 15 (Negative); Leukocyte Esterase Negative (Negative); Nitrite Negative (Negative); Ph 5.5 (4.6-8.0); Protein,Urine Dip Trace (Negative); RBC 0-2 /HPF (0-5); Urobilinogen 0.2 mg/dL (0.2); WBC 0-2 /HPF (0-5)
[2023-09-23 19:56] LABS: ADD URINE CULTURE? NO (NO)
== END 2023-09-23 20:22 | disposition home or self-care (01) ==
LOC: ED 16:08
DX: R11.2 Nausea with vomiting, unspecified (principal); E78.5 Hyperlipidemia, unspecified; I10 Essential (primary) hypertension; E11.9 Type 2 diabetes mellitus without complications; Z79.84 Long term (current) use of oral hypoglycemic drugs; Z79.899 Other long term (current) drug therapy
CPT/HCPCS: 36000; 36415; 80053; 81001; 83690; 85025; 96360; 96374; 96375; 99284; J2405

== ENCOUNTER 2024-04-06 13:06 | Emergency (ER) | payer MEDICARE ==
--- NOTE | 2024-04-06 13:58 | ERPHSYRPT ---
- History of Present Illness Time Seen by Provider: 04/06/24 13:55 Source: patient, family Exam Limitations: no limitations Physician History: pt saw Dr. Goddard for knee pain last week and was told he had fluid behind the right knee. He does not know of any trauma. No Cp or SOBreath. Tender right knee with effusion , no erythema. Now has swelling both lower legs - nontender, no erythema. N/V intact. Normal mental status, Normal neuro exam. Chest clear Ht reg without M. Abd soft nontender without mass or peritoneal signs. Ext 2+ edema Bikl LE. Family is [id number] as independent source for Hx. Discussed risks/benefits with pt and family of US legs, x-ray R knee and BCB, CMP, and they wish to proceed so these are ordered. Method of Injury: unknown Occurred: last week Quality: constant, sharpness Severity of Pain-Max: moderate Severity of Pain-Current: moderate Lower Extremities Pain: knee: right Modifying Factors: Improves With: immobilization, movement Associated Symptoms: other (swollen legs) Allergies/Adverse Reactions: penicillin G Allergy (Mild, Verified 04/06/24 14:00) Hives meperidine [From Demerol] Adverse Reaction (Mild, Verified 04/06/24 14:00) Nausea and Vomiting Home Medications: Finasteride 5 mg [Proscar 5 MG] 5 mg PO DAILY 02/01/20 [History] Hydrochlorothiazide 25 mg [hydroDIURIL 25 MG] 25 mg PO DAILY 02/01/20 [History] Losartan Potassium 50 mg PO DAILY 02/01/20 [History] Aspirin EC 325 mg [Ecotrin 325 MG] 325 mg PO DAILY 12/08/20 [History] Carvedilol 12.5 mg [Coreg 12.5 mg] 12.5 mg PO BID 12/08/20 [History] Citalopram Hydrobromide 20 mg* [ceLEXa 20 MG] 40 mg PO DAILY 01/09/23 [History] Metformin HCl 500 mg [Glucophage 500 MG] 500 mg PO DAILY 01/09/23 [History] Nitroglycerin 0.4 mg Tablet [Nitrostat 0.4 MG Tablet] 0.4 mg SL Q5MIN PRN MR X 3 PRN 01/09/23 [History] Pramipexole Di-HCl [Pramipexole Dihydrochloride] 0.5 mg PO BID 01/09/23 [History] Pravastatin Sodium 40 mg PO DAILY 01/09/23 [History] Tamsulosin HCl 0.4 mg [Flomax 0.4 MG] 0.4 mg PO DAILY 01/09/23 [History] Venlafaxine HCl [Venlafaxine HCl ER] 150 mg PO DAILY 01/09/23 [History] gemfibroziL [Gemfibrozil] 600 mg PO DAILY 01/09/23 [History] Budesonide/Formoterol Fumarate [Budesonide-Formoterol 160-4.5] 2 inh PO UD 05/07/23 [History] Temazepam 30 mg PO HS 05/07/23 [History] Olanzapine [Olanzapine Odt] 10 mg PO HS 06/26/23 [History] Omeprazole 40 mg PO DAILY 06/26/23 [History] Saw/Vit E/Sod Mariella/Lyc/Beta/Pyg [Prostate Health Caplet] 1 tab PO DAILY 06/26/23 [History] Oxycodone / APAP 10/325 mg [Oxycodone-Acetaminophen 10-325] 1 each PO BID PRN 04/06/24 [History] Hx Tetanus, Diphtheria Vaccination/Date Given: No Hx Influenza Vaccination/Date Given: Yes Hx Pneumococcal Vaccination/Date Given: Yes - Review of Systems Constitutional: No Fever, No Chills Eyes: No Symptoms Ears, Nose, & Throat: No Symptoms Respiratory: No Cough, No Dyspnea Cardiac: Edema, No Chest Pain, No Syncope Abdominal/Gastrointestinal: No Abdominal Pain, No Nausea, No Vomiting, No Diarrhea Genitourinary Symptoms: No Dysuria Musculoskeletal: Joint Pain, Joint Swelling, No Back Pain, No Neck Pain Skin: No Rash Neurological: No Dizziness, No Focal Weakness, No Sensory Changes Psychological: No Symptoms Endocrine: No Symptoms Hematologic/Lymphatic: No Symptoms Immunological/Allergic: No Symptoms All Other Systems: Reviewed and Negative - Past Medical History Pertinent Past Medical History: Yes Neurological History: No Pertinent History, TIA ENT History: Cataracts Cardiac History: Coronary Artery Disease, High Cholesterol, Hypertension Respiratory History: COPD, Sleep Apnea Endocrine Medical History: Diabetes Type II Musculoskeletal History: Arthritis GI Medical History: GERD History: Other Psycho-Social History: Bipolar, Depression Male Reproductive Disorders: No Pertinent History Other Medical History: . - Past Surgical History Past Surgical History: Yes Neuro Surgical History: No Pertinent History Cardiac: Cardiac Catheterization, Cardiac Stent Respiratory: No Pertinent History Gastrointestinal: Appendectomy, Other Genitourinary: No Pertinent History Musculoskeletal: Orthopedic Surgery Male Surgical History: Other Other Surgical History: HYDROCELE REPAIR, spinal surgey, hip replacement x2, bilateral hand, total hip, GJ VAGOTOMY 1970, HEMORRHOIDECTOMY Significant Family History: heart disease (mother, at advanced age), cancer (father and siblings) - Social History Smoking Status: Former smoker Exposure to second hand smoke: No Drug Use: none Patient Lives Alone: No - Nursing Vital Signs Nursing Vital Signs: Initial Vital Signs Temperature 98.3 F 04/06/24 13:49 Pulse Rate 65 04/06/24 13:49 Blood Pressure 112/69 04/06/24 13:49 O2 Sat by Pulse Oximetry 99 04/06/24 13:49 Pain Scale Pain Intensity 10 - Physical Exam General Appearance: no apparent distress, alert Eyes, Ears, Nose, Throat Exam: moist mucous membranes Neck Exam: non-tender, supple Cardiovascular/Respiratory Exam: chest non-tender, normal breath sounds, regular rate/rhythm, no respiratory distress Gastrointestinal/Abdominal Exam: non-tender, guarding Back Exam: normal inspection, No vertebral tenderness Hips Exam: bilateral: non-tender, normal inspection, normal range of motion Legs Exam: bilateral leg: non-tender, normal inspection, normal range of motion, no evidence of injury Knees Exam: right knee: bone tenderness, joint effusion, pain, soft tissue tenderness, swelling, left knee: non-tender, normal inspection, normal range of motion, no evidence of injury Ankle Exam: bilateral ankle: non-tender, normal inspection, normal range of motion, no evidence of injury, swelling Foot Exam: bilateral foot: non-tender, normal inspection, normal range of motion, no evidence of injury, swelling DTR - Lower Extremities Exam: knee (R): 2+, knee (L): 2+, ankle (R): 2+, ankle (L): 2+ Neuro/Tendon Exam: normal sensation, normal motor functions Mental Status Exam: alert, 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, cooperative Skin Exam: normal color, warm, dry SpO2 Interpretation: normal SpO2: 99 O2 Delivery: Room Air - Course Nursing assessment & vital signs reviewed: Yes EKG Interpreted by Me: Sinus Rhythm, NORMAL AXIS, NORMAL INTERVALS, NORMAL QRS, NORMAL ST-T - Radiology Exams Right Knee X-ray Interpretation: Interpreted by me, Reviewed by me, No Fracture, Other (DJD no obvious fx. ) - Radiology Ultrasound Exam Right Venous Lower Extremity Ultrasound: discussed w/radiologist, negative Left Venous Lower Extremity Ultrasound: discussed w/radiologist, negative (No DVTs) Ordered Tests: Active Orders 24 hr Category Date Time Status EKG-ER Only STAT Care 04/06/24 15:07 Active KNEE (1 OR 2 VIEW) Stat Exams 04/06/24 15:22 Taken VENOUS BILATERAL EXTREMITY [US] Stat Exams 04/06/24 15:03 Taken CBC W DIFF Stat Lab 04/06/24 15:25 Completed CMP Stat Lab 04/06/24 15:25 Completed TROPONIN Q4H Lab 04/06/24 15:25 Completed TROPONIN Q4H Lab 04/06/24 19:15 Ordered TROPONIN Q4H Lab 04/06/24 23:15 Ordered UA W/RFX UR CULTURE Stat Lab 04/06/24 Completed Lab/Rad Data: Laboratory Result Diagrams 04/06/24 15:25 04/06/24 15:25 Laboratory Results 04/06/24 04/06/24 04/06/24 Range/Units Unknown 15:25 15:25 WBC (4.23-9.07) x10^3/uL RBC (4.63-6.08) x10^6/uL Hgb (13.7-17.5) g/dL Hct (40.1-51.0) % MCV (79.0-92.2) fL MCH (25.7-32.2) pg MCHC (32.3-36.5) g/dL RDW (11.6-14.4) % Plt Count (163-337) x10^3/uL MPV (9.4-12.4) fL Gran % (34.0-67.9) % Immature Gran % (Auto) (0.001-0.429) % Nucleat RBC Rel Count (0.00-0.2) % Eos # (Auto) (0.04-0.54) x10^3/uL Immature Gran # (Auto) (0.001-0.031) x10^3u/L Absolute Lymphs (auto) (1.32-3.57) x10^3/uL Absolute Monos (auto) (0.30-0.82) x10^3/uL Absolute Nucleated RBC (0.00-0.012) x10^3u/L Lymphocytes % (21.8-53.1) % Monocytes % (5.3-12.2) % Eosinophils % (0.8-7.0) % Basophils % (0.2-1.2) % Absolute Granulocytes (1.78-5.38) x10^3/uL Basophils # (0.01-0.08) x10^3/uL Sodium 142 (135-145) mmol/L Potassium 4.6 (3.5-5.1) mmol/L Chloride 118 H (98-107) mmol/L Carbon Dioxide 17 L (22-30) mmol/L Anion Gap 12.0 (5-15) MEQ/L BUN 29 H (9-20) mg/dL Creatinine 1.50 H (0.66-1.25) mg/dL Estimated GFR 48.3 ML/MIN Glucose 101 (74-106) mg/dL Calcium 9.1 (8.4-10.2) mg/dL Total Bilirubin 0.60 (0.2-1.3) mg/dL AST 25 (17-59) U/L ALT 16 (0-50) U/L Alkaline Phosphatase 96 (38-126) U/L Troponin I < 0.012 (0.000-0.033) ng/mL Serum Total Protein 6.5 (6.3-8.2) g/dL Albumin 3.6 (3.5-5.0) g/dL Urine Color Yellow (Yellow) Urine Appearance Clear (Clear) Urine pH 5.5 (4.6-8.0) Ur Specific [place] <=1.005 (1.005-1.030) Urine Protein Negative (Negative) Urine Glucose (UA) Negative (Negative) mg/dL Urine Ketones Negative (Negative) Urine Blood Negative (Negative) Urine Nitrite Negative (Negative) Urine Bilirubin Negative (Negative) Urine Urobilinogen 0.2 (0.2) mg/dL Ur Leukocyte Esterase Negative (Negative) U Hyaline Cast (Auto) NONE SEEN (0-2) /LPF Urine Microscopic RBC 0-2 (0-5) /HPF Urine Microscopic WBC 0-2 (0-5) /HPF Ur Epithelial Cells None Seen (None Seen) /HPF Urine Bacteria None Seen (None Seen) /HPF Urine Culture Reflexed NO (NO) 04/06/24 Range/Units 15:25 WBC 6.0 (4.23-9.07) x10^3/uL RBC 3.12 L (4.63-6.08) x10^6/uL Hgb 9.1 L (13.7-17.5) g/dL Hct 29.3 L (40.1-51.0) % MCV 93.9 H (79.0-92.2) fL MCH 29.2 (25.7-32.2) pg MCHC 31.1 L (32.3-36.5) g/dL RDW 13.2 (11.6-14.4) % Plt Count 200 (163-337) x10^3/uL MPV 9.8 (9.4-12.4) fL Gran % 63.3 (34.0-67.9) % Immature Gran % (Auto) 0.3 (0.001-0.429) % Nucleat RBC Rel Count 0.0 (0.00-0.2) % Eos # (Auto) 0.19 (0.04-0.54) x10^3/uL Immature Gran # (Auto) 0.02 (0.001-0.031) x10^3u/L Absolute Lymphs (auto) 1.59 (1.32-3.57) x10^3/uL Absolute Monos (auto) 0.36 (0.30-0.82) x10^3/uL Absolute Nucleated RBC 0.00 (0.00-0.012) x10^3u/L Lymphocytes % 26.3 (21.8-53.1) % Monocytes % 6.0 (5.3-12.2) % Eosinophils % 3.1 (0.8-7.0) % Basophils % 1.0 (0.2-1.2) % Absolute Granulocytes 3.82 (1.78-5.38) x10^3/uL Basophils # 0.06 (0.01-0.08) x10^3/uL Sodium (135-145) mmol/L Potassium (3.5-5.1) mmol/L Chloride (98-107) mmol/L Carbon Dioxide (22-30) mmol/L Anion Gap (5-15) MEQ/L BUN (9-20) mg/dL Creatinine (0.66-1.25) mg/dL Estimated GFR ML/MIN Glucose (74-106) mg/dL Calcium (8.4-10.2) mg/dL Total Bilirubin (0.2-1.3) mg/dL AST (17-59) U/L ALT (0-50) U/L Alkaline Phosphatase (38-126) U/L Troponin I (0.000-0.033) ng/mL Serum Total Protein (6.3-8.2) g/dL Albumin (3.5-5.0) g/dL Urine Color (Yellow) Urine Appearance (Clear) Urine pH (4.6-8.0) Ur Specific [place] (1.005-1.030) Urine Protein (Negative) Urine Glucose (UA) (Negative) mg/dL Urine Ketones (Negative) Urine Blood (Negative) Urine Nitrite (Negative) Urine Bilirubin (Negative) Urine Urobilinogen (0.2) mg/dL Ur Leukocyte Esterase (Negative) U Hyaline Cast (Auto) (0-2) /LPF Urine Microscopic RBC (0-5) /HPF Urine Microscopic WBC (0-5) /HPF Ur Epithelial Cells (None Seen) /HPF Urine Bacteria (None Seen) /HPF Urine Culture Reflexed (NO) - Progress Progress: improved, re-examined Progress Note: 04/06/24 18:12 pt advised of low hgb lowest before 9.7 and 9,1 today no symptoms not on blood thinner per pt and no BRBPR nop dizziness. He is advised to f/u PMD tomorrow to recheck and complete w/u and prefers this to being obs in hosp and has the capacity to make this choice - no abd pain. He is advised that he also needs further w/u of his swelling of legs and that we have not determined the cause and again prefers otpt to further w/u here or obs. and has the capacity to make this choice 04/06/24 18:16 he also declines crutches or knee immob. Counseled pt/family regarding: lab results, diagnosis, need for follow-up, rad results Medical Desision Making - Independent Historian Additional History obtained from: Family - Discussion of managment Reviewed:: Test results, Need for additional workup Agreed on:: Treatment plan, need for follow-up - Diagnostic Testing Diagnostic test were ordered, analyzed, and reviewed by me: Yes Radiological Interpretation: Interpreted by me, Reviewed by me - Risk of complications The pt has a mod risk of morbidity or mortality based on: Need for prescription drug management The pt has a high risk of morbidity or mortality based on: Decision regarding hospitilization or escalation of hosp level of care - Departure Departure Disposition: Home Clinical Impression: knee symptoms and leg swelling, low hgb incidental Condition: Good Critical Care Time: No Referrals: TRACEY HOSKINS MD [Primary Care Provider] - Follow up/PCP as directed Instructions: Knee Pain (DC), Anemia, Possibly From Low Iron, Adult ED, Swelling Additional Instructions: we have not determined the cause for your leg swelling although we did not find a blood clot in the veins - you need furhter workup and also for your knee and your low blood hemoglobin. See your Dr. JACOBSEN this week for this. also followup for your elevated blood pres sure. Return meantime if any symptoms of concern such as chest pain, dizziness, shortness of breath of other concerns.
[2024-04-06 14:00] VITALS: TEMP 98.3
[2024-04-06 15:32] LABS: Absolute Neutrophil Ct (ANC) 3.82 x10^3/uL (1.78-5.38); Basophil (Absolute #) 0.06 x10^3/uL (0.01-0.08); Eosinophil % 3.1 % (0.8-7.0); Eosinophil (Absolute #) 0.19 x10^3/uL (0.04-0.54); Hematocrit 29.3 % (40.1-51.0); Hemoglobin 9.1 g/dL (13.7-17.5); IMMATURE GRAN # 0.02 x10^3u/L (0.001-0.031); IMMATURE GRAN % 0.3 % (0.001-0.429); Lymphocyte (Absolute #) 1.59 x10^3/uL (1.32-3.57); Lymphocytes % 26.3 % (21.8-53.1); Mean Cell Volume 93.9 fL (79.0-92.2); Mean Corpuscular Hemoglobin 29.2 pg (25.7-32.2); Mean Corpuscular Hgb Concent. 31.1 g/dL (32.3-36.5); Mean Platelet Volume 9.8 fL (9.4-12.4); Monocyte (Absolute #) 0.36 x10^3/uL (0.30-0.82); Neutrophil % 63.3 % (34.0-67.9); Platelet Count 200 x10^3/uL (163-337); Red Blood Count 3.12 x10^6/uL (4.63-6.08); Red Cell Distribution Width 13.2 % (11.6-14.4)
[2024-04-06 15:42] LABS: Appearance Clear (Clear); Bacteria None Seen /HPF (None Seen); Bilirubin Negative (Negative); Blood Negative (Negative); Epithelial Cells None Seen /HPF (None Seen); Glucose, Urine Negative (Negative); Hyaline Casts NONE SEEN /LPF (0-2); Ketones Negative (Negative); Leukocyte Esterase Negative (Negative); Nitrite Negative (Negative); Ph 5.5 (4.6-8.0); Protein,Urine Dip Negative (Negative); RBC 0-2 /HPF (0-5); Specific Gravity <=1.005 (1.005-1.030); Urobilinogen 0.2 mg/dL (0.2); WBC 0-2 /HPF (0-5)
[2024-04-06 15:50] LABS: ADD URINE CULTURE? NO (NO)
[2024-04-06 16:15] LABS: ALBUMIN 3.6 g/dL (3.5-5.0); BILIRUBIN,TOTAL 0.6 mg/dL (0.2-1.3); Calcium 9.1 mg/dL (8.4-10.2); Creatinine 1 1.5 mg/dL (0.66-1.25); EST GLOMERULAR FILTRATION RATE 48.3 ML/MIN; Potassium 4.6 mmol/L (3.5-5.1); Total Protein 6.5 g/dL (6.3-8.2)
[2024-04-06 16:21] VITALS: BP 138/105; PULSE 68; RESP 22
[2024-04-06 16:46] VITALS: O2SAT 99
--- NOTE | 2024-04-06 19:31 | XRAY ---
Indication: Pain and swelling 2 months. Comparison: None 2 view right knee demonstrates osteopenia and moderate scattered vascular calcifications. No other bony, articular, or soft tissue abnormalities.
--- NOTE | 2024-04-06 19:33 | XRAY ---
Indication: Bilateral leg swelling. Two-dimensional sonogram and color Doppler imaging major venous vessels left and right leg performed. Comparison: None No thrombus seen in the examined deep venous vessels left and right leg including greater saphenous vein. Veins demonstrate normal compressibility. Venous waveforms are normal with and without augmentation. Impression: Left and right leg negative for DVT. Comment: Preliminary report was given.
== END 2024-04-06 18:29 | disposition home or self-care (01) ==
LOC: ED 13:06
DX: M25.561 Pain in right knee (principal); M79.89 Other specified soft tissue disorders; D64.9 Anemia, unspecified; E78.5 Hyperlipidemia, unspecified; I10 Essential (primary) hypertension; E11.9 Type 2 diabetes mellitus without complications; Z79.84 Long term (current) use of oral hypoglycemic drugs; Z79.891 Long term (current) use of opiate analgesic; Z79.899 Other long term (current) drug therapy
CPT/HCPCS: 36415; 73560; 80053; 81001; 84484; 85025; 93005; 93970; 99283

== ENCOUNTER 2024-07-10 15:13 | Emergency (ER) | payer MEDICARE ==
[2024-07-10 15:37] VITALS: TEMP 98.1
[2024-07-10 16:23] VITALS: BP 103/68
--- NOTE | 2024-07-10 16:39 | XRAY ---
Indication: Pain following fall. Comparison: March 22, 2013 3 view right hand now demonstrates osteopenia, moderate 1st metacarpal multangular degenerative changes, incompletely visualized distal radius fracture with posterior fixation plate/screws, and distal radial artery alcifications. Again mild degenerative changes all IP joints, old 2nd proximal phalanx fracture, and old distal 5th metacarpal fracture. No acute findings. Impression: Nonacute right hand with chronic features.
[2024-07-10] MEDS ORDERED: TYLENOL EXTRA STRENGTH 500 MG ONE (16:45)
[2024-07-10] MEDS: TYLENOL EXTRA STRENGTH 500 MG PO STA (16:46)
--- NOTE | 2024-07-10 16:54 | ERPHSYRPT ---
- History of Present Illness Time Seen by Provider: 07/10/24 15:30 Source: patient Exam Limitations: no limitations Patient Subjective Stated Complaint: pt's chair rolled out from under him and he fell to the ground injuring his right hand 3rd and 4th fingers Triage Nursing Assessment: Pt brought self to the ER, vitals wnl, rates pain as 10/10, pulses normal, skin n/w/d, swelling to the right hand 3rd and 4th finger, denies any other injuries, denies hitting head, doesn't appear to be in any distress Physician History: 73-year-old male [id number] presented in the ER with injury to right hand third fourth and fifth fingers when walker chair he was sitting on slipped underneath him and he tried to catch himself with outstretched hand and injured his fingers. No skin break. Patient reports 10/10 intensity pain especially in the fourth digit with reproducibility on palpation and movements. No tingling or numbness in the fingers. Did not hit his head. No injury anywhere else. Has painful movements third fourth and fifth digit especially fourth digit proximal interphalangeal and metacarpophalangeal joint area. Tenderness to palpation. Distal neurovascular intact. X-rays reviewed by me revealed fourth digit proximal phalanx fracture. Placed in premade aluminum volar splint and outpatient orthopedic follow-up recommended. Patient is given Tylenol for symptomatic relief. Patient has fra cture distal radius with plating. Has no tenderness in the radius area. Recommended taking Tylenol, intermittent ice application and orthopedic follow- up. Discussed signs symptoms of worsening needing return to ER which he seems understanding. Stable for discharge. Allergies/Adverse Reactions: penicillin G Allergy (Mild, Verified 07/10/24 15:37) Hives meperidine [From Demerol] Adverse Reaction (Mild, Verified 07/10/24 15:37) Nausea and Vomiting Home Medications: Finasteride 5 mg [Proscar 5 MG] 5 mg PO DAILY 02/01/20 [History] Hydrochlorothiazide 25 mg [hydroDIURIL 25 MG] 25 mg PO DAILY 02/01/20 [History] Losartan Potassium 50 mg PO DAILY 02/01/20 [History] Aspirin EC 325 mg [Ecotrin 325 MG] 325 mg PO DAILY 12/08/20 [History] Carvedilol 12.5 mg [Coreg 12.5 mg] 12.5 mg PO BID 12/08/20 [History] Citalopram Hydrobromide 20 mg* [ceLEXa 20 MG] 40 mg PO DAILY 01/09/23 [History] Metformin HCl 500 mg [Glucophage 500 MG] 500 mg PO DAILY 01/09/23 [History] Nitroglycerin 0.4 mg Tablet [Nitrostat 0.4 MG Tablet] 0.4 mg SL Q5MIN PRN MR X 3 PRN 01/09/23 [History] Pramipexole Di-HCl [Pramipexole Dihydrochloride] 0.5 mg PO BID 01/09/23 [History] Pravastatin Sodium 40 mg PO DAILY 01/09/23 [History] Tamsulosin HCl 0.4 mg [Flomax 0.4 MG] 0.4 mg PO DAILY 01/09/23 [History] Venlafaxine HCl [Venlafaxine HCl ER] 150 mg PO DAILY 01/09/23 [History] gemfibroziL [Gemfibrozil] 600 mg PO DAILY 01/09/23 [History] Budesonide/Formoterol Fumarate [Budesonide-Formoterol 160-4.5] 2 inh PO UD 05/07/23 [History] Temazepam 30 mg PO HS 05/07/23 [History] Olanzapine [Olanzapine Odt] 10 mg PO HS 06/26/23 [History] Omeprazole 40 mg PO DAILY 06/26/23 [History] Saw/Vit E/Sod Mariella/Lyc/Beta/Pyg [Prostate Health Caplet] 1 tab PO DAILY 06/26/23 [History] Oxycodone / APAP 10/325 mg [Oxycodone-Acetaminophen 10-325] 1 each PO BID PRN 04/06/24 [History] Hx Tetanus, Diphtheria Vaccination/Date Given: No Hx Influenza Vaccination/Date Given: Yes Hx Pneumococcal Vaccination/Date Given: Yes Travel Risk - International Travel Have you traveled outside of the country in past 3 weeks: No - Emerging Infectious Disease Are you exhibiting symptoms associated with any current EIDs: No - Review of Systems Constitutional: No Symptoms Ears, Nose, & Throat: No Symptoms Respiratory: No Symptoms Cardiac: No Symptoms Abdominal/Gastrointestinal: No Symptoms Musculoskeletal: Fall, Injury, Joint Pain Skin: No Symptoms Neurological: No Symptoms Hematologic/Lymphatic: No Symptoms Immunological/Allergic: No Symptoms - Past Medical History Pertinent Past Medical History: Yes Neurological History: No Pertinent History, TIA ENT History: Cataracts Cardiac History: Coronary Artery Disease, High Cholesterol, Hypertension Respiratory History: COPD, Sleep Apnea Endocrine Medical History: Diabetes Type II Musculoskeletal History: Arthritis GI Medical History: GERD History: Other Psycho-Social History: Bipolar, Depression Male Reproductive Disorders: No Pertinent History Other Medical History: . - Past Surgical History Past Surgical History: Yes Neuro Surgical History: No Pertinent History Cardiac: Cardiac Catheterization, Cardiac Stent Respiratory: No Pertinent History Gastrointestinal: Appendectomy, Other Genitourinary: No Pertinent History Musculoskeletal: Orthopedic Surgery Male Surgical History: Other Other Surgical History: HYDROCELE REPAIR, spinal surgey, hip replacement x2, bilateral hand, total hip, GJ VAGOTOMY 1970, HEMORRHOIDECTOMY Significant Family History: heart disease (mother, at advanced age), cancer (father and siblings) - Social History Smoking Status: Former smoker Exposure to second hand smoke: No Drug Use: none Patient Lives Alone: No - Social Determinants of Health Will the patient participate in the screening: Yes Do you worry about a steady place to live?: No Do you have any problems with any of the following?: No known problems In the past 12 months,have you had to go without utilities?: No Transportation Issues: No Has anyone in your support network made you feel unsafe?: No Have you or anyone in your house had to go without enough: No - Nursing Vital Signs Nursing Vital Signs: Initial Vital Signs Temperature 98.1 F 07/10/24 15:29 Pulse Rate 88 07/10/24 15:29 Blood Pressure 108/68 07/10/24 15:29 O2 Sat by Pulse Oximetry 98 07/10/24 15:29 Pain Scale Pain Intensity 5 - Physical Exam General Appearance: no apparent distress Neck Exam: normal inspection, full range of motion Cardiovascular/Respiratory Exam: normal breath sounds, regular rate/rhythm Elbow/Forearm Exam: normal inspection, non-tender, no evidence of injury, normal ROM Wrist Exam: normal inspection, non-tender, no evidence of injury, normal ROM Hand Exam: bone tenderness (4th digit proximal phalanx), limited ROM, soft tissue tenderness, swelling Neuro/Tendon Exam: normal sensation, normal motor functions Mental Status Exam: alert, 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, cooperative Skin Exam: normal color SpO2 Interpretation: normal SpO2: 98 O2 Delivery: Room Air Procedures - Splinting Location of Splint: Right, Hand, Wrist, Forearm Type of Splint: Aluminum Splint Ordered Tests: Active Orders 24 hr Category Date Time Status Splint STAT Care 07/10/24 16:47 Completed HAND (MINIMUM 3 VIEWS) Stat Exams 07/10/24 15:29 Completed Medication Summary Discontinued Medications Generic Name Dose Route Start Last Admin Trade Name Toby PRN Reason Stop Dose Admin Acetaminophen 1,000 mg 07/10/24 16:44 07/10/24 16:46 Acetaminophen 500 Mg Tablet PO 07/10/24 16:45 1,000 mg ONCE STA Administration Acetaminophen Confirm 07/10/24 16:45 Acetaminophen 500 Mg Tablet Administered 07/10/24 16:46 Dose 1,000 mg .ROUTE .STK-MED ONE - Progress Progress: improved, pain not gone completely, re-examined Progress Note: 07/10/24 16:52 73-year-old male [id number] presented in the ER with injury to right hand third fourth and fifth fingers when walker chair he was sitting on slipped underneath him and he tried to catch himself with outstretched hand and injured his fingers. No skin break. Patient reports 10/10 intensity pain especially in the fourth digit with reproducibility on palpation and movements. No tingling or numbness in the fingers. Did not hit his head. No injury anywhere else. Has painful movements third fourth and fifth digit especially fourth digit proximal interphalangeal and metacarpophalangeal joint area. Tenderness to palpation. Distal neurovascular intact. X-rays reviewed by me revealed fourth digit proximal phalanx fracture. Placed in premade aluminum volar splint and outpatient orthopedic follow-up recommended. Patient is given Tylenol for symptomatic relief. Patient has fracture distal radius with plating. Has no tenderness in the radius area. Recommended taking Tylenol, intermittent ice application and orthopedic follow- up. Discussed signs symptoms of worsening needing return to ER which he seems understanding. Stable for discharge. Counseled pt/family regarding: diagnosis, need for follow-up, rad results Medical Desision Making - Diagnostic Testing Diagnostic test were ordered, analyzed, and reviewed by me: Yes Radiological Interpretation: Interpreted by me, Reviewed by me - Departure Departure Disposition: Home Clinical Impression: Finger fracture, right Condition: Stable Critical Care Time: No Referrals: DARSHANA ZELAYA [Primary Care Provider] - Follow up with PCP 1 day Instructions: Finger Fracture (DC) Additional Instructions: take tylenol as needed. follow up with orthopedics for re evaluation ., return [facility]
[2024-07-10 17:00] VITALS: PULSE 80; RESP 18
[2024-07-10 17:26] VITALS: O2SAT 98
== END 2024-07-10 17:00 | disposition home or self-care (01) ==
LOC: ED 15:13
DX: S62.614A Displaced fracture of proximal phalanx of right ring finger, initial encounter for closed fracture (principal); W07.XXXA Fall from chair, initial encounter; E78.5 Hyperlipidemia, unspecified; I10 Essential (primary) hypertension; E11.9 Type 2 diabetes mellitus without complications; Z79.84 Long term (current) use of oral hypoglycemic drugs; Z79.899 Other long term (current) drug therapy
CPT/HCPCS: 73130; 99283; A4570; A9270-GY

== ENCOUNTER 2024-09-03 13:12 | Emergency (ER) | payer MEDICARE ==
[2024-09-03 13:31] VITALS: TEMP 99
--- NOTE | 2024-09-03 13:34 | ERPHSYRPT ---
- History of Present Illness Time Seen by Provider: 09/03/24 13:30 Source: patient Exam Limitations: no limitations Patient Subjective Stated Complaint: C/O left upper leg/thigh and groin pain that started yesterday. Denies falls or injury. Triage Nursing Assessment: Patient brought back to ER in a w/c. Took assistance of 2 staff to transfer from chair to bed. He is alert and oriented. No bruising or swelling noted to area of pain. NO external rotation of LLE present on exam. Left pedal pulse present and strong. Physician History: 73yo m presents for Left lower extremity pain that he states radiates from his left lower back down to his knee. Pt reports the worst of his pain is in the left thigh, reports some decreased sensation in the left thigh as well. Pt reports low back problems in the past, used to see pain management but has not in > 1yr. Pt does endorse loss of bladder continence, denies loss of bowel continence. Pt reports significant weakness in the extremity, states that yesterday he became unable to bear weight on the LLE. Pt denies any recent injury or trauma to the back or LLE. Timing/Duration: yesterday Quality: radiating, sharp, cramping Back Pain Location: lumbar spine Back Pain Radiation: upper legs Severity of Pain-Max: moderate Severity of Pain-Current: moderate Modifying Factors: Improves With: nothing Associated Symptoms: urinary incontinence, weakness, sensory/motor loss, lower back pain, No fever, No chills, No sweating, No loss of bowel control, No nausea, No vomiting, No tingling in legs/feet Allergies/Adverse Reactions: penicillin G Allergy (Mild, Verified 09/03/24 13:18) Hives meperidine [From Demerol] Adverse Reaction (Mild, Verified 09/03/24 13:18) Nausea and Vomiting Home Medications: Finasteride 5 mg [Proscar 5 MG] 5 mg PO DAILY 02/01/20 [History] Hydrochlorothiazide 25 mg [hydroDIURIL 25 MG] 25 mg PO DAILY 02/01/20 [History] Aspirin EC 325 mg [Ecotrin 325 MG] 325 mg PO DAILY 12/08/20 [History] Carvedilol 12.5 mg [Coreg 12.5 mg] 12.5 mg PO BID 12/08/20 [History] Citalopram Hydrobromide 20 mg* [ceLEXa 20 MG] 40 mg PO DAILY 01/09/23 [History] Nitroglycerin 0.4 mg Tablet [Nitrostat 0.4 MG Tablet] 0.4 mg SL Q5MIN PRN MR X 3 PRN 01/09/23 [History] Pramipexole Di-HCl [Pramipexole Dihydrochloride] 0.5 mg PO BID 01/09/23 [History] Pravastatin Sodium 40 mg PO DAILY 01/09/23 [History] Venlafaxine HCl [Venlafaxine HCl ER] 150 mg PO DAILY 01/09/23 [History] Olanzapine [Olanzapine Odt] 10 mg PO HS 06/26/23 [History] Omeprazole 40 mg PO DAILY 06/26/23 [History] Cholecalciferol (Vitamin D3) [Vitamin D3] 1,250 mcg PO WEEKLY 09/03/24 [History] Docusate Sodium [Colace] 100 mg PO BID 09/03/24 [History] Lisinopril/Hydrochlorothiazide [Lisinopril-Hctz 20-25 mg Tab] 1 tab PO DAILY 09/03/24 [History] Hx Tetanus, Diphtheria Vaccination/Date Given: Yes Hx Influenza Vaccination/Date Given: Yes Hx Pneumococcal Vaccination/Date Given: Yes Immunizations Up to Date: Yes Travel Risk - International Travel Have you traveled outside of the country in past 3 weeks: No - Emerging Infectious Disease Are you exhibiting symptoms associated with any current EIDs: No - Review of Systems Constitutional: No Symptoms Respiratory: No Symptoms Cardiac: No Symptoms Genitourinary Symptoms: Incontinence (urinary) Neurological: Focal Weakness (LLE ), Parasthesia (left upper leg), No Headache - Past Medical History Pertinent Past Medical History: Yes Neurological History: No Pertinent History, TIA ENT History: Cataracts Cardiac History: Coronary Artery Disease, High Cholesterol, Hypertension Respiratory History: COPD, Sleep Apnea Endocrine Medical History: Diabetes Type II Musculoskeletal History: Arthritis GI Medical History: GERD History: Other Psycho-Social History: Bipolar, Depression Male Reproductive Disorders: Prostate Problems Other Medical History: insomnia - Past Surgical History Past Surgical History: Yes Neuro Surgical History: No Pertinent History Cardiac: Cardiac Catheterization, Cardiac Stent Respiratory: No Pertinent History Gastrointestinal: Appendectomy, Other Genitourinary: No Pertinent History Musculoskeletal: Orthopedic Surgery Male Surgical History: Other Other Surgical History: HYDROCELE REPAIR, spinal surgey, hip replacement x2, bilateral hand, total hip, GJ VAGOTOMY 1970, HEMORRHOIDECTOMY Significant Family History: heart disease (mother, at advanced age), cancer (father and siblings) - Social History Smoking Status: Never smoker Exposure to second hand smoke: No Drug Use: none Patient Lives Alone: No - Social Determinants of Health Will the patient participate in the screening: Yes Do you worry about a steady place to live?: No Do you have any problems with any of the following?: No known problems In the past 12 months,have you had to go without utilities?: No Transportation Issues: No Has anyone in your support network made you feel unsafe?: No Have you or anyone in your house had to go without enough: No - Nursing Vital Signs Nursing Vital Signs: Initial Vital Signs Temperature 99.0 F 09/03/24 13:22 Pulse Rate 90 09/03/24 13:22 Respiratory Rate 18 09/03/24 13:22 Blood Pressure 125/76 09/03/24 13:22 O2 Sat by Pulse Oximetry 97 09/03/24 13:22 Pain Scale Pain Intensity 0 - Physical Exam General Appearance: no apparent distress, alert Respiratory Exam: airway intact, No chest tenderness, No respiratory distress Cardiovascular Exam: regular rate/rhythm, normal heart sounds Back Exam: muscle spasm (left lumbar paraspinal musculature TTP and hypertonic) Extremity Exam: pelvis stable, parasthesia (decreased sensation compared to right upper leg), limited range of motion (2/2 pain, ), No deformities, No swelling, No tenderness Neurologic Exam: alert, 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, cooperative, expediter service order II-XII nml as tested, normal mood/affect, motor weakness (LLE 2/2 pain) Skin Exam: normal color, warm, dry SpO2 Interpretation: normal SpO2: 97 O2 Delivery: Room Air Ordered Tests: Active Orders 24 hr Category Date Time Status LOWER EXTREMITY WO CONTRAST [CT] Stat Exams 09/03/24 13:32 Completed LUMBAR SPINE W/O [CT] Stat Exams 09/03/24 13:32 Completed UA W/RFX UR CULTURE Stat Lab 09/03/24 15:01 Completed Medication Summary Discontinued Medications Generic Name Dose Route Start Last Admin Trade Name Freq PRN Reason Stop Dose Admin Hydrocodone Bitart/Acetaminophen 2 tab 09/03/24 13:33 09/03/24 13:41 Hydrocodone/Apap 5/325 1 Tab Tablet PO 09/03/24 13:34 2 tab STAT ONE Administration Hydrocodone Bitart/Acetaminophen Confirm 09/03/24 13:39 Hydrocodone/Apap 5/325 1 Tab Tablet Administered 09/03/24 13:40 Dose 2 tab .ROUTE .STK-MED ONE Lab/Rad Data: Laboratory Results 09/03/24 Range/Units 15:01 Urine Color Dark Yellow (Yellow) Urine Appearance Clear (Clear) Urine pH 5.5 (4.6-8.0) Ur Specific [place] 1.020 (1.005-1.030) Urine Protein 30 (Negative) Urine Glucose (UA) Negative (Negative) mg/dL Urine Ketones Negative (Negative) Urine Blood Negative (Negative) Urine Nitrite Negative (Negative) Urine Bilirubin Negative (Negative) Urine Urobilinogen 1.0 A (0.2) mg/dL Ur Leukocyte Esterase Negative (Negative) U Hyaline Cast (Auto) 6-10 A (0-2) /LPF Urine Microscopic RBC 0-2 (0-5) /HPF Urine Microscopic WBC 0-2 (0-5) /HPF Ur Epithelial Cells None Seen (None Seen) /HPF Urine Bacteria None Seen (None Seen) /HPF Urine Culture Reflexed NO (NO) - Progress Progress: re-examined Progress Note: 09/03/24 15:41 I spoke w/ Dr Sorto (neurosurgery - [facility]) who recommends transfer to [facility] for evaluation w/ MRI as well as eval by neurosurgical provider 09/03/24 15:[address] lumbar spine showed: worsening L1 compression fx w/ new spinal canal narrowing and b/l L1-L2 foraminal stenosis Stable osteopenia, multilevel kyphoplasty, multilevel DDD, arteriosclerotic disease CT LLE not significant for new acute findings 09/03/24 15:50 I spoke w/ Dr Riley at [facility] (hospitalist) who is willing to accept for transfer Will see patient in: hospital (full admit) Counseled pt/family regarding: lab results, diagnosis, need for follow-up, rad results Medical Desision Making - Discussion of managment Care discussed with:: specialist (neurosurgery Dr Stephanian) Reviewed:: Need for additional workup Agreed on:: decision to admit - Diagnostic Testing Diagnostic test were ordered, analyzed, and reviewed by me: Yes Radiological Interpretation: Reviewed by me, Teleradiologist Report - Risk of complications The pt has a high risk of morbidity or mortality based on: Decision regarding hospitilization or escalation of hosp level of care - Departure Departure Disposition: Transfer Clinical Impression: Back pain, Fracture of lumbar spine, Compression fx, lumbar spine, Incontinence of urine Condition: Stable Critical Care Time: No Referrals: DARSHANA ZELAYA [Primary Care Provider] - Follow up/PCP as directed
[2024-09-03] MEDS ORDERED: NORCO 5/325 MG ONE (13:39)
[2024-09-03] MEDS: NORCO 5/325 MG PO ONE (13:41)
--- NOTE | 2024-09-03 14:31 | XRAY ---
Indication: Low back pain. Multiple contiguous axial images obtained through the lumbar spine. Sagittal and coronal reformatted images obtained. Comparison: August 07, 2023. Osseous structures remain demineralized. Progressive worsening L1 compression fracture now with complete collapsed. Posterior fracture now encroaches on spinal canal with mean AP thecal sac diameter 8 mm and also new bilateral L1-L2 foraminal stenosis. Stable T11/T12/L3/L4 kyphoplasty, minimal broad-based L3-S1 disc bulge, bilateral L3-S1 degenerative facet arthropathy, and left total hip arthroplasty. No obvious large disc herniation. Sagittal and coronal reformatted images demonstrate normal lumbar alignment. New T12-L1 disc space narrowing. Remaining lumbar disc spaces preserved. Visualized noncontrasted soft tissues again demonstrates mild scattered aortoiliac calcifications. Impression: 1. Worsening L1 compression fracture with new spinal canal narrowing and bilateral L1-L2 foraminal stenosis. 2. Stable osteopenia, multilevel kyphoplasty, multilevel degenerative disc disease, and arteriosclerotic disease.
--- NOTE | 2024-09-03 14:35 | XRAY ---
Indication: Left leg pain and weakness. No known injury. Multiple contiguous axial images obtained through the left femur. Sagittal and coronal reformatted images obtained. Comparison: None CT lumbar spine reported separately. Osseous structures demineralized. Remote total hip arthroplasty with intact bipolar prosthesis/acetabular screws and chunky anterolateral heterotopic ossifications. No acute fracture or suspicious bony lesions. Visualized noncontrasted soft tissues demonstrates mild diffuse scattered arteriosclerotic calcifications and sigmoid diverticulosis. No focal solid/cystic soft tissue mass or abnormal fluid collection. Impression: Chronic findings including osteopenia, intact left hip arthroplasty, arteriosclerotic disease, and sigmoid diverticulosis. Remaining CT left femur without contrast exam is negative.
[2024-09-03 15:25] LABS: Appearance Clear (Clear); Bacteria None Seen /HPF (None Seen); Bilirubin Negative (Negative); Blood Negative (Negative); Epithelial Cells None Seen /HPF (None Seen); Glucose, Urine Negative (Negative); Ketones Negative (Negative); Leukocyte Esterase Negative (Negative); Nitrite Negative (Negative); Ph 5.5 (4.6-8.0); Protein,Urine Dip 30 (Negative); RBC 0-2 /HPF (0-5); WBC 0-2 /HPF (0-5)
[2024-09-03 16:35] VITALS: O2SAT 97
[2024-09-03 18:50] VITALS: BP 102/64; PULSE 90; RESP 17
== END 2024-09-03 19:39 | disposition short-term general hospital (02) ==
LOC: ED 13:12
DX: M48.56XA Collapsed vertebra, not elsewhere classified, lumbar region, initial encounter for fracture (principal); M54.50 Low back pain, unspecified; R32 Unspecified urinary incontinence; M79.652 Pain in left thigh; E78.5 Hyperlipidemia, unspecified; I10 Essential (primary) hypertension; E11.9 Type 2 diabetes mellitus without complications; Z79.899 Other long term (current) drug therapy
CPT/HCPCS: 36000; 72131; 73700; 81001; 99284; 99285; A9270-GY

== ENCOUNTER 2024-11-05 13:05 | Emergency (ER) | payer MEDICARE ==
[2024-11-05 13:20] VITALS: RESP 18; TEMP 96.7
--- NOTE | 2024-11-05 13:56 | ERPHSYRPT ---
- History of Present Illness Time Seen by Provider: 11/05/24 13:10 Source: patient, EMS Exam Limitations: no limitations Patient Subjective Stated Complaint: Pt reports he fell landing on left knee.Complains of ankle pain which pt says he always has. Triage Nursing Assessment: Pt alert and oriented x3. Respirations easy/nonlabored. Skin w/p/d. Arrived via ambulance, pain with movement. No obvious deformities, minimal swelling, no bruising. Tender with palpation. Physician History: 73-year-old male presented in the ER via EMS after he slipped on ice and fell forward on his left knee and somewhat twisted left ankle as well. Has a small abrasion on the left left little finger. No pain in the hand. Did not hit his head. No loss of consciousness. This happened prior to arrival. Patient denies any chest pain palpitations or shortness of breath before or after the fall. Up-to-date with tetanus. No injury anywhere else. Allergies/Adverse Reactions: penicillin G Allergy (Mild, Verified 11/05/24 13:13) Hives meperidine [From Demerol] Adverse Reaction (Mild, Verified 11/05/24 13:13) Nausea and Vomiting Home Medications: Finasteride 5 mg [Proscar 5 MG] 5 mg PO DAILY 02/01/20 [History] Hydrochlorothiazide 25 mg [hydroDIURIL 25 MG] 25 mg PO DAILY 02/01/20 [History] Aspirin EC 325 mg [Ecotrin 325 MG] 325 mg PO DAILY 12/08/20 [History] Carvedilol 12.5 mg [Coreg 12.5 mg] 12.5 mg PO BID 12/08/20 [History] Citalopram Hydrobromide 20 mg* [ceLEXa 20 MG] 40 mg PO DAILY 01/09/23 [History] Nitroglycerin 0.4 mg Tablet [Nitrostat 0.4 MG Tablet] 0.4 mg SL Q5MIN PRN MR X 3 PRN 01/09/23 [History] Pramipexole Di-HCl [Pramipexole Dihydrochloride] 0.5 mg PO BID 01/09/23 [History] Pravastatin Sodium 40 mg PO DAILY 01/09/23 [History] Venlafaxine HCl [Venlafaxine HCl ER] 150 mg PO DAILY 01/09/23 [History] Olanzapine [Olanzapine Odt] 10 mg PO HS 06/26/23 [History] Omeprazole 40 mg PO DAILY 06/26/23 [History] Cholecalciferol (Vitamin D3) [Vitamin D3] 1,250 mcg PO WEEKLY 09/03/24 [History] Docusate Sodium [Colace] 100 mg PO BID 09/03/24 [History] Lisinopril/Hydrochlorothiazide [Lisinopril-Hctz 20-25 mg Tab] 1 tab PO DAILY 09/03/24 [History] Hx Tetanus, Diphtheria Vaccination/Date Given: Yes Hx Influenza Vaccination/Date Given: Yes Hx Pneumococcal Vaccination/Date Given: Yes Travel Risk - International Travel Have you traveled outside of the country in past 3 weeks: No - Emerging Infectious Disease Are you exhibiting symptoms associated with any current EIDs: No - Review of Systems Constitutional: No Symptoms Ears, Nose, & Throat: No Symptoms Respiratory: No Symptoms Cardiac: No Symptoms Abdominal/Gastrointestinal: No Symptoms Genitourinary Symptoms: No Symptoms Musculoskeletal: Arthralgias, Fall, Injury, Joint Redness Skin: Skin Lesions Neurological: No Symptoms Endocrine: No Symptoms Hematologic/Lymphatic: No Symptoms - Past Medical History Pertinent Past Medical History: Yes Neurological History: No Pertinent History, TIA ENT History: Cataracts Cardiac History: Coronary Artery Disease, High Cholesterol, Hypertension, Myocardial Infarction ([place]) Respiratory History: COPD, Sleep Apnea Endocrine Medical History: Diabetes Type II Musculoskeletal History: Arthritis GI Medical History: GERD History: Other Psycho-Social History: Bipolar, Depression Male Reproductive Disorders: Prostate Problems Other Medical History: insomnia - Past Surgical History Past Surgical History: Yes Neuro Surgical History: No Pertinent History Cardiac: Cardiac Catheterization, Cardiac Stent Respiratory: No Pertinent History Gastrointestinal: Appendectomy, Other Genitourinary: No Pertinent History Musculoskeletal: Orthopedic Surgery Male Surgical History: Other Other Surgical History: HYDROCELE REPAIR, spinal surgey, hip replacement x2, bilateral hand, total hip, GJ VAGOTOMY 1970, HEMORRHOIDECTOMY Significant Family History: heart disease (mother, at advanced age), cancer (father and siblings) - Social History Smoking Status: Former smoker Exposure to second hand smoke: No Drug Use: none Patient Lives Alone: No - Social Determinants of Health Will the patient participate in the screening: Declined to provide - Nursing Vital Signs Nursing Vital Signs: Initial Vital Signs Temperature 96.7 F 11/05/24 13:09 Pulse Rate 70 11/05/24 13:09 Respiratory Rate 18 11/05/24 13:09 Blood Pressure 134/64 11/05/24 13:09 O2 Sat by Pulse Oximetry 98 11/05/24 13:09 Pain Scale Pain Intensity 8 - Deshawn Coma Score Best Eye Response ([place]): (4) open spontaneously Best Verbal Response ([place]): (5) oriented Best Motor Response ([place]): (6) obeys commands [place] Total: 15 - Physical Exam General Appearance: no apparent distress, alert Head Injury: no evidence of injury Eye Exam: PERRL/EOMI, eyes nml inspection, scleral icterus, pale conjunctivae ENT Exam: airway nml, No evidence of ENT injury, No dental injury Neck Exam: supple, trachea midline, full range of motion, normal alignment Respiratory/Chest Exam: normal breath sounds, No chest tenderness, No respiratory distress Cardiovascular Exam: normal heart sounds, regular rate/rhythm Back Exam: normal inspection Extremity Exam: joint swelling, limited range of motion, bony point tenderness, swelling, other (Abrasion left knee with diffuse tenderness and minimal te nderness on the medial side. Mild tenderness of ankle and swelling. 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 nml as tested Skin Exam: normal color SpO2 Interpretation: normal SpO2: 98 O2 Delivery: Room Air Ordered Tests: Active Orders 24 hr Category Date Time Status ANKLE (3 VIEWS) Stat Exams 11/05/24 13:16 Completed KNEE (3 VIEWS) Stat Exams 11/05/24 13:16 Completed Medication Summary Discontinued Medications Generic Name Dose Route Start Last Admin Trade Name Freq PRN Reason Stop Dose Admin Hydrocodone Bitart/Acetaminophen 1 tab 11/05/24 13:53 11/05/24 14:00 Hydrocodone/Apap 5/325 1 Tab Tablet PO 11/05/24 13:54 1 tab STAT ONE Administration Hydrocodone Bitart/Acetaminophen Confirm 11/05/24 13:59 Hydrocodone/Apap 5/325 1 Tab Tablet Administered 11/05/24 14:00 Dose 1 tab .ROUTE .STK-MED ONE - Progress Progress: improved, pain not gone completely, re-examined Progress Note: 11/05/24 14:55 73-year-old is evaluated in the ER for mechanical fall after he slid on ice and hit his knee. Patient did not hit his head and no other injuries. X-rays left ankle and knee are negative for any acute fracture dislocation but does have some old arthritic changes, Patient is up-to-date with tetanus. Given [place] for symptomatic relief, feeling better on reevaluation but pain is not completely resolved. Patient is placed in a knee brace, recommended intermittent ice application, taking Tylenol as needed and outpatient follow-up. Discussed signs symptoms of worsening needing return to ER which he seems understanding. It was a clear mechanical fall, do not think needs any other workup and is stable for discharge. Counseled pt/family regarding: diagnosis, need for follow-up, rad results Medical Desision Making - Independent Historian Additional History obtained from: Web Architect/EMT - Diagnostic Testing Diagnostic test were ordered, analyzed, and reviewed by me: Yes Radiological Interpretation: Reviewed by me - Risk of complications The pt has a mod risk of morbidity or mortality based on: Need for prescription drug management - Departure Departure Disposition: Home Clinical Impression: Knee contusion Qualifiers: Encounter type: initial encounter Laterality: left Qualified Code(s): S80.02XA - Contusion of left knee, initial encounter Fall Qualifiers: Encounter type: initial encounter Qualified Code(s): W19.XXXA - Unspecified fall, initial encounter Condition: Stable Critical Care Time: No Referrals: DARSHANA ZELAYA [Primary Care Provider] - Follow up with PCP 1 day ROSALIND HERBERT MD [ACTIVE STAFF] - Follow up/PCP as directed (Call for appointment) Instructions: Contusion (DC), Preventing falls in adults Additional Instructions: Intermittent ice application, use Tylenol as needed. Follow-up with primary care/orthopedics for reevaluation. Return to ER for intractable pain, difficulty ambulation/movements or if develop swelling etc.
[2024-11-05] MEDS ORDERED: NORCO 5/325 MG ONE (13:59)
[2024-11-05] MEDS: NORCO 5/325 MG PO ONE (14:00)
--- NOTE | 2024-11-05 14:00 | XRAY ---
Indication: Pain following fall. Comparison: July 22, 2013 3 view left knee again demonstrates osteopenia. Progressive worsening moderate scattered vascular calcifications. No acute bony, articular, or soft tissue abnormalities.
--- NOTE | 2024-11-05 14:02 | XRAY ---
Indication: Pain following fall. Comparison: July 04, 2022 3 view left ankle again demonstrates osteopenia and moderate scattered vascular calcifications. No acute bony, articular, or soft tissue abnormalities.
[2024-11-05 14:42] VITALS: BP 138/67; PULSE 72
[2024-11-05 14:58] VITALS: O2SAT 98
== END 2024-11-05 15:19 | disposition home or self-care (01) ==
LOC: ED 13:05
DX: S80.02XA Contusion of left knee, initial encounter (principal); W00.0XXA Fall on same level due to ice and snow, initial encounter; M25.572 Pain in left ankle and joints of left foot; E78.5 Hyperlipidemia, unspecified; I10 Essential (primary) hypertension; E11.9 Type 2 diabetes mellitus without complications; Z79.899 Other long term (current) drug therapy
CPT/HCPCS: 73562; 73610; 99283; A9270-GY

== ENCOUNTER 2025-05-22 15:50 | Emergency (ER) | payer MEDICARE, OTHER ==
--- NOTE | 2025-05-22 15:58 | ERPHSYRPT ---
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 Goddard secondary to patient falling on his own, cause unknown, and now with significant dizziness. Patient does not recall all the events other than calling the paramedics for lift assist. He does not have a headache. He did state that he does not recall everything and does not know if he hit his head. His dizziness, that was significant prior to arrival, has improved while here. His systolic blood pressure is in the 120s. Patient does have a history of frequent falls. Patient has a history of hyperlipidemia, gastroesophageal reflux disease, hypertension, coronary artery disease, stents), COPD, type 2 diabetes, TIA, bipolar disorder/depression. He does not have any chest pain or shortness of breath at this time. Occurred: just prior to arrival Reason for Fall: unknown Injuries/Pain Location: no injury Loss of Consciousness: unsure Severity of Pain-Max: mild Severity of Pain-Current: mild Modifying Factors: Improves With: nothing Associated Symptoms (Fall): dizziness, No chest pain, No extremity injury, No shortness of breath, No vision changes Allergies/Adverse Reactions: penicillin G Allergy (Mild, Verified 11/05/24 13:13) Hives meperidine [From Demerol] Adverse Reaction (Mild, Verified 11/05/24 13:13) Nausea and Vomiting Home Medications: Finasteride 5 mg [Proscar 5 MG] 5 mg PO DAILY 02/01/20 [History] Carvedilol 12.5 mg [Coreg 12.5 mg] 12.5 mg PO BID 12/08/20 [History] Citalopram Hydrobromide 20 mg* [ceLEXa 20 MG] 40 mg PO DAILY 01/09/23 [History] Nitroglycerin 0.4 mg Tablet [Nitrostat 0.4 MG Tablet] 0.4 mg SL Q5MIN PRN MR X 3 PRN 01/09/23 [History] Pravastatin Sodium 40 mg PO DAILY 01/09/23 [History] Venlafaxine HCl [Venlafaxine HCl ER] 75 mg PO DAILY 01/09/23 [History] Cholecalciferol (Vitamin D3) [Vitamin D3] 50 mcg PO WEEKLY 09/03/24 [History] Docusate Sodium [Colace] 100 mg PO BID 09/03/24 [History] Ferrous Sulfate 325 mg [Feosol 325 mg] 325 mg PO DAILY 04/11/25 [History] PANTOPRAZOLE 40 mg Tablet [Protonix 40MG Tablet] 40 mg PO BID 04/11/25 [History] Potassium Chloride 20 meq PO DAILY 04/11/25 [History] Pravastatin Sodium 40 mg PO DAILY 04/11/25 [History] Trazodone HCl 50 mg [Desyrel 50 mg] 50 mg PO DAILY 04/11/25 [History] Hx Tetanus, Diphtheria Vaccination/Date Given: Yes Hx Influenza Vaccination/Date Given: Yes Hx Pneumococcal Vaccination/Date Given: Yes Travel Risk - International Travel Have you traveled outside of the country in past 3 weeks: No - Emerging Infectious Disease Are you exhibiting symptoms associated with any current EIDs: No Symptoms: Diarrhea - Review of Systems Constitutional: No Symptoms Eyes: No Symptoms Ears, Nose, & Throat: No Symptoms Respiratory: No Symptoms Cardiac: No Symptoms Abdominal/Gastrointestinal: No Symptoms Genitourinary Symptoms: No Symptoms Musculoskeletal: No Symptoms Skin: No Symptoms Neurological: Dizziness Psychological: No Symptoms Endocrine: No Symptoms Hematologic/Lymphatic: No Symptoms Immunological/Allergic: No Symptoms All Other Systems: Reviewed and Negative - Past Medical History Pertinent Past Medical History: Yes Neurological History: No Pertinent History, TIA ENT History: Cataracts Cardiac History: Coronary Artery Disease, High Cholesterol, Hypertension, Myocardial Infarction ([place]) Respiratory History: COPD, Sleep Apnea Endocrine Medical History: Diabetes Type II Musculoskeletal History: Arthritis GI Medical History: GERD History: Other Psycho-Social History: Bipolar, Depression Male Reproductive Disorders: Prostate Problems Other Medical History: insomnia - Past Surgical History Past Surgical History: Yes Neuro Surgical History: No Pertinent History Cardiac: Cardiac Catheterization, Cardiac Stent Respiratory: No Pertinent History Gastrointestinal: Appendectomy, Other Genitourinary: No Pertinent History Musculoskeletal: Orthopedic Surgery Male Surgical History: Other Other Surgical History: HYDROCELE REPAIR, spinal surgey, hip replacement x2, bilateral hand, total hip, GJ VAGOTOMY 1970, HEMORRHOIDECTOMY Significant Family History: heart disease (mother, at advanced age), cancer (father and siblings) - Social History Drug Use: none - Social Determinants of Health Will the patient participate in the screening: Yes Do you worry about a steady place to live?: No In the past 12 months,have you had to go without utilities?: No Transportation Issues: No Has anyone in your support network made you feel unsafe?: No Have you or anyone in your house had to go w/o enough food: No - Nursing Vital Signs Nursing Vital Signs: Initial Vital Signs Temperature 97.5 F 05/22/25 15:51 Pulse Rate 63 05/22/25 15:51 Respiratory Rate 14 05/22/25 15:51 Blood Pressure 97/63 05/22/25 15:51 O2 Sat by Pulse Oximetry 100 05/22/25 15:51 Pain Scale Pain Intensity 3 - Deshawn Coma Score Best Eye Response ([place]): (4) open spontaneously Best Verbal Response ([place]): (5) oriented Best Motor Response ([place]): (6) obeys commands [place] Total: 15 - Physical Exam General Appearance: no apparent distress, alert, anxiety Head Injury: no evidence of injury Eye Exam: PERRL/EOMI, eyes nml inspection ENT Exam: airway nml, evidence of ENT injury, No dental injury, No nml ext.inspection Neck Exam: supple, trachea midline, full range of motion, normal alignment Respiratory/Chest Exam: normal breath sounds, No chest tenderness, No respiratory distress, No ecchymosis, No crepitus Cardiovascular Exam: normal heart sounds, regular rate/rhythm Gastrointestinal Exam: soft, normal bowel sounds, No tenderness Rectal Exam: not done Back Exam: normal inspection, normal range of motion, No CVA tenderness, No vertebral tenderness Extremity Exam: normal inspection, normal range of motion, capillary refill <3 sec, pelvis stable, amputations, deformities, lacerations Neurologic Exam: alert, 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, nml cerebellar function Skin Exam: normal color, warm, dry SpO2 Interpretation: normal O2 Delivery: Room Air - Course Nursing assessment & vital signs reviewed: Yes Ordered Tests: Active Orders 24 hr Category Date Time Status EKG-ER Only STAT Care 05/22/25 16:12 Active IV Insertion STAT Care 05/22/25 16:12 Active Pulse Oximetry (ED) STAT Care 05/22/25 16:12 Active CERVICAL SPINE WO CONTRAST [CT] Stat Exams 05/22/25 16:04 Taken HEAD WITHOUT CONTRAST [CT] Stat Exams 05/22/25 16:04 Taken CBC W DIFF Stat Lab 05/22/25 16:28 Completed CMP Stat Lab 05/22/25 16:28 Completed ETHYL ALCOHOL Stat Lab 05/22/25 16:28 Completed MAGNESIUM Stat Lab 05/22/25 16:28 Completed UA W/RFX UR CULTURE Stat Lab 05/22/25 16:16 Completed Medication Summary Discontinued Medications Generic Name Dose Route Start Last Admin Trade Name Toby PRN Reason Stop Dose Admin Levofloxacin 500 mg 05/22/25 18:51 Levofloxacin 500 Mg Tablet PO 05/22/25 18:52 STAT ONE Meclizine HCl 25 mg 05/22/25 18:51 Meclizine Hcl 25 Mg Tablet PO 05/22/25 18:52 STAT ONE Lab/Rad Data: Laboratory Result Diagrams 05/22/25 16:28 05/22/25 16:28 Laboratory Results 05/22/25 05/22/25 05/22/25 Range/Units 16:28 16:28 16:16 WBC 6.3 (4.23-9.07) x10^3/uL RBC 3.66 L (4.63-6.08) x10^6/uL Hgb 11.0 L (13.7-17.5) g/dL Hct 32.9 L (40.1-51.0) % MCV 89.9 (79.0-92.2) fL MCH 30.1 (25.7-32.2) pg MCHC 33.4 (32.3-36.5) g/dL RDW 13.0 (11.6-14.4) % Plt Count 205 (163-337) x10^3/uL MPV 8.9 L (9.4-12.4) fL Gran % 71.9 H (34.0-67.9) % Immature Gran % (Auto) 0.5 H (0.001-0.429) % Nucleat RBC Rel Count 0.0 (0.00-0.2) % Eos # (Auto) 0.16 (0.04-0.54) x10^3/uL Immature Gran # (Auto) 0.03 (0.001-0.031) x10^3u/L Absolute Lymphs (auto) 1.14 L (1.32-3.57) x10^3/uL Absolute Monos (auto) 0.40 (0.30-0.82) x10^3/uL Absolute Nucleated RBC 0.00 (0.00-0.012) x10^3u/L Lymphocytes % 18.0 L (21.8-53.1) % Monocytes % 6.3 (5.3-12.2) % Eosinophils % 2.5 (0.8-7.0) % Basophils % 0.8 (0.2-1.2) % Absolute Granulocytes 4.54 (1.78-5.38) x10^3/uL Basophils # 0.05 (0.01-0.08) x10^3/uL Sodium 138 (135-145) mmol/L Potassium 3.8 (3.5-5.1) mmol/L Chloride 111 H (98-107) mmol/L Carbon Dioxide 20 L (22-30) mmol/L Anion Gap 11.0 (5-15) MEQ/L BUN 25 H (9-20) mg/dL Creatinine 1.19 (0.66-1.25) mg/dL Estimated GFR 63.3 ML/MIN Glucose 120 H (74-106) mg/dL Calcium 9.4 (8.4-10.2) mg/dL Magnesium 1.7 (1.6-2.3) mg/dL Total Bilirubin 0.80 (0.2-1.3) mg/dL AST 24 (17-59) U/L ALT 16 (0-50) U/L Alkaline Phosphatase 85 (38-126) U/L Serum Total Protein 6.3 (6.3-8.2) g/dL Albumin 3.4 L (3.5-5.0) g/dL Urine Color Yellow (Yellow) Urine Appearance Clear (Clear) Urine pH 5.0 (4.6-8.0) Ur Specific [place] 1.020 (1.005-1.030) Urine Protein Trace A (Negative) Urine Glucose (UA) Negative (Negative) mg/dL Urine Ketones Negative (Negative) Urine Blood Negative (Negative) Urine Nitrite Negative (Negative) Urine Bilirubin Negative (Negative) Urine Urobilinogen 1.0 A (0.2) mg/dL Ur Leukocyte Esterase Negative (Negative) U Hyaline Cast (Auto) 3-5 A (0-2) /LPF Urine Microscopic RBC 0-2 (0-5) /HPF Urine Microscopic WBC 0-2 (0-5) /HPF Ur Epithelial Cells None Seen (None Seen) /HPF Urine Bacteria None Seen (None Seen) /HPF Urine Culture Reflexed NO (NO) Ethyl Alcohol < 10 (0-10) mg/dL - Progress Progress: improved, re-examined Progress Note: 05/22/25 16:24 My medical decision making and the assignment of moderate complexity of this patient's medical issue today is based on review of the patient's past medical history, review occasional list, reviewed patient drug allergy list, history present illness and physical findings on examination. The workup in this patient includes CT scan of the cervical spine and head without contrast, CBC, CMP, twelve-lead EKG, magnesium level, troponin level, urinalysis, blood alcohol level. Differential diagnosis includes but is not limited to acute intracranial abnormality, arrhythmia, electrolyte abnormalities, dehydration, urinary tract infection, 05/22/25 18:22 I interpreted the patient's laboratory data results. Based on laboratory data results, there are no acute, emergent medical issues. 05/22/25 18:[address] scans were interpreted by the radiologist and I reviewed the impression. The impressions are: Cervical spine CT shows multilevel degenerative disc disease. Nothing acute. There were no comparison films. CT scan of the head shows nonacute senile brain when compared to similar study dated 05/07/2023. New complete opacification right mastoid air cells presumed inflammatory. Counseled pt/family regarding: lab results, diagnosis, need for follow-up, rad results Medical Desision Making - Independent Historian Additional History obtained from: Housekeeper Manager/EMT - Diagnostic Testing Diagnostic test were ordered, analyzed, and reviewed by me: Yes Radiological Interpretation: Reviewed by me, Teleradiologist Report - Risk of complications The pt has a mod risk of morbidity or mortality based on: Need for prescription drug management - Departure Departure Disposition: Home Clinical Impression: Mastoiditis of right side, Dizziness Condition: Stable Critical Care Time: No Referrals: DARSHANA GODDARD [Primary Care Provider, [facility]] - Follow up/PCP as directed Additional Instructions: Drink plenty of fluids. Take your medications as prescribed. Call your primary care provider on 05/25/2025, to make arrangements for follow-up appointment for further evaluation management. Prescriptions: Meclizine HCl 25 mg [Antivert 25 mg] 25 mg PO Q12H PRN #10 tablet PRN Reason: Dizziness Ciprofloxacin [Cipro 500 MG] 500 mg PO BID #14 tablet
[2025-05-22 16:11] VITALS: TEMP 97.5
[2025-05-22 16:33] LABS: BASOPHIL % 0.8 % (0.2-1.2); Basophil (Absolute #) 0.05 x10^3/uL (0.01-0.08); Eosinophil (Absolute #) 0.16 x10^3/uL (0.04-0.54); Hematocrit 32.9 % (40.1-51.0); Hemoglobin 11.0 g/dL (13.7-17.5); IMMATURE GRAN # 0.03 x10^3u/L (0.001-0.031); IMMATURE GRAN % 0.5 % (0.001-0.429); Lymphocyte (Absolute #) 1.14 x10^3/uL (1.32-3.57); Mean Corpuscular Hemoglobin 30.1 pg (25.7-32.2); Mean Corpuscular Hgb Concent. 33.4 g/dL (32.3-36.5); Monocyte (Absolute #) 0.40 x10^3/uL (0.30-0.82); NUCLEATED RBC # 0.00 x10^3u/L (0.00-0.012); NUCLEATED RBC % 0.0 % (0.00-0.2); Platelet Count 205 x10^3/uL (163-337); Red Blood Count 3.66 x10^6/uL (4.63-6.08); White Blood Count 6.3 x10^3/uL (4.23-9.07)
[2025-05-22 16:46] LABS: Calcium 9.4 mg/dL (8.4-10.2); Carbon Dioxide 20 mmol/L (22-30); Creatinine 1 1.19 mg/dL (0.66-1.25); EST GLOMERULAR FILTRATION RATE 63.3 ML/MIN; ETHYL ALCOHOL < 10 mg/dL (0-10); Glucose 120 mg/dL (74-106); Potassium 3.8 mmol/L (3.5-5.1); SGOT/AST 24 U/L (17-59); SGPT/ALT 16 U/L (0-50); Total Protein 6.3 g/dL (6.3-8.2)
[2025-05-22 18:02] LABS: Glucose, Urine Negative (Negative); Protein,Urine Dip Trace (Negative); RBC 0-2 /HPF (0-5); WBC 0-2 /HPF (0-5)
[2025-05-22 18:04] VITALS: O2SAT 98
[2025-05-22] MEDS ORDERED: ANTIVERT 25 MG ONE (19:00)
[2025-05-22] MEDS: Levofloxacin 500 MG Tablet PO ONE (19:01)
[2025-05-22] MEDS ORDERED: Levofloxacin 500 MG Tablet ONE (19:01)
[2025-05-22] MEDS: ANTIVERT 25 MG PO ONE (19:01)
[2025-05-22 19:06] VITALS: BP 112/61; PULSE 74; RESP 18
--- NOTE | 2025-05-22 21:41 | XRAY ---
Indication: Fall. Multiple contiguous axial images obtained through the head without contrast. Comparison: May 07, 2023 Again age-appropriate global atrophy, moderate periventricular degenerative micro-ischemia bilaterally, and subcentimeter remote infarct left mid [place]ell radiata. No acute intracranial hemorrhage, abnormal extra-axial fluid question, or mass effect. Fourth ventricle is midline without hydrocephalus. Bony calvarium intact. Visualized paranasal sinuses clear. New complete opacification right mastoid air cells presumed inflammatory. Impression: 1. Again nonacute senile brain with subcentimeter remote infarct left [place]ell radiata. 2. New complete opacification right mastoid air cells. Rule out mastoiditis.
--- NOTE | 2025-05-22 21:45 | XRAY ---
Indication: Fall. Multiple contiguous images obtained through the cervical spine. Sagittal and coronal reformatted images obtained. Comparison: None Osseous structures demineralized. Axial images negative for acute fracture, suspicious bony lesions, or spinal canal stenosis. Mild C4-C7 degenerative endplate spurring and mild multilevel bilateral degenerative facet hypertrophy. Sagittal and coronal reformatted images demonstrates mild levoscoliosis, congenital fusion C2-C3, 1-2 mm anterolisthesis C7 on T1, and C4-C7 the disc space narrowing. No acute compression fracture or jumped facet. Normal craniocervical junction. Visualized noncontrasted soft tissues demonstrates mild left and minimal right carotid calcifications. Lung apices clear. Impression: 1. Negative acute fracture. 2. Chronic findings including osteopenia, multilevel degenerative spondylosis, minimal grade 1 C7 anterolisthesis, levoscoliosis, congenital fusion C2-C3, and bilateral carotid calcifications.
== END 2025-05-22 19:30 | disposition home or self-care (01) ==
LOC: ED 15:50
DX: H70.91 Unspecified mastoiditis, right ear (principal); R42 Dizziness and giddiness; R29.6 Repeated falls; I10 Essential (primary) hypertension; E11.9 Type 2 diabetes mellitus without complications; Z79.899 Other long term (current) drug therapy